=== PATIENT | male | born 1975 | race Caucasian/White ===

== ENCOUNTER 2017-10-19 12:14 | Emergency (ER) | payer OTHER ==
[~2017-10-19] VITALS: Ht 182.9 cm; Wt 122.5 kg
[~2017-10-19 12:14] MED LIST: ALLP300T PO; CYCL-97 PO; MELO-195; MELO-195 PO; TRAM-21 PO
[2017-10-19] MEDS ORDERED: KETOROLAC 30 MG/ML VIAL IM ONE (12:45)
[2017-10-19] MEDS ORDERED: SUMAtriptan 6 MG/0.5 ML (IMITREX) INJ SQ ONE (12:45)
[2017-10-19] MEDS ORDERED: diphenhydrAMINE 25 MG TAB (BENADRYL) PO ONE (12:45)
[2017-10-19] MEDS ORDERED: PROCHLORPERAZINE 10 MG/2ML INJ (COMPAZINE) IM ONE (12:45)
[2017-10-19] MEDS ORDERED: ACETAMINOPHEN 500 MG TAB (TYLENOL) PO ONE (12:45)
[2017-10-19] MEDS ORDERED: ONDANSETRON 4 MG (ZOFRAN) ORAL DISSOLVE TAB PO ONE (12:45)
[2017-10-19 12:55] LABS: BASOPHILS # (AUTO) 0.1 10^3/uL (0.0-0.1); BASOPHILS % (AUTO) 1 % (0-10); EOSINOPHILS # (AUTO) 0.2 10^3/uL (0.0-0.3); EOSINOPHILS % (AUTO) 2 % (0-10); HEMATOCRIT 40 % (40-54); LYMPHOCYTES # (AUTO) 1.6 X 10^3 (1.0-4.0); LYMPHOCYTES % (AUTO) 19 % (12-44); MEAN CORPUSCULAR HEMOGLOBIN 29 PG (25-34); MEAN CORPUSCULAR HGB CONC 35 G/DL (32-36); MEAN CORPUSCULAR VOLUME 82 FL (80-99); MEAN PLATELET VOLUME 9.3 FL (7.4-10.4); MONOCYTES # (AUTO) 0.9 X 10^3 (0.0-1.0); MONOCYTES % (AUTO) 11 % (0-12); NEUTROPHILS # (AUTO) 5.5 X 10^3 (1.8-7.8); NEUTROPHILS % (AUTO) 68 % (42-75); PLATELET COUNT 277 10^3/uL (130-400); RED BLOOD COUNT 4.84 10^6/uL (4.35-5.85); RED CELL DISTRIBUTION WIDTH 12.4 % (10.0-14.5); WHITE BLOOD COUNT 8.2 10^3/uL (4.3-11.0)
[2017-10-19] MEDS ORDERED: ONDANSETRON 4 MG/2 ML (SDV) Z0FRAN IVP ONE (13:00)
[2017-10-19] MEDS ORDERED: NS IV 1000 ML 1,000 ML IV SCH (13:00)
[2017-10-19 13:11] LABS: ALBUMIN 3.9 GM/DL (3.2-4.5); BILIRUBIN,TOTAL 0.7 MG/DL (0.1-1.0); CALCIUM 9.8 MG/DL (8.5-10.1); CREATININE SERUM 1.37 MG/DL (0.60-1.30); POTASSIUM 4.2 MMOL/L (3.6-5.0); TOTAL PROTEIN 8.5 GM/DL (6.4-8.2)
--- NOTE | 2017-10-19 13:22 | ED Abdominal Pain ---
General Chief Complaint: Abdominal/GI Problems Stated Complaint: ABD PAIN Nursing Triage Note: PT AMBULATED TO RM 8 W/O DIFFICULTY. PT C/O ABDOMINAL PAIN THAT STARTED ABOUT A MONTH AGO WHEN THE PT STARTED EATING A KETO DIET. PT THOUGHT IT WAS THE DIET AND STOPPED EATING KETO BUT THE PAIN HAS PERSISTED. PT STATES THE PAIN FEELS LIKE GAS AND BLOATING AND BECAME MORE INTENSE YESTERDAY AND TODAY. PT STATES HE IS HAS BEEN TAKING GAS X WITH NO RELIEF. PT STATES HE IS HAVING REGULAR BM. DENIES DIARRHEA OR CONSTIPATION. Sepsis Screen: No Definite Risk Source of Information: Patient Exam Limitations: No Limitations History of Present Illness Date Seen by Provider: Oct 19, 2017 Time Seen by Provider: 12:20 Initial Comments Patient is a 42-year-old male who presents to the emergency room with generalized abdominal pain for one month. He reports changing his diet to KETO diet and thinks the symptoms are related to the diet but has stopped the diet for over 2 weeks now and the symptoms still persisted. He reports the pain has became worse the last 2 days and he has also developed nausea. He reports his pain is sometimes worse with eating and he feels like the pain sensation is like gas pain/bloating but has tried [id number]-[id number] medications for this without relief. Timing/Duration: Other (1 month) Severity/Quality: Mild Location: Epigastric, Generalized Abdomen Radiation: No Radiation Activities at Onset: None Modifying Factors: Worsens With Eating Associated Symptoms: No Chest Pain, No Diaphoresis, No Fever/Chills, No Fatigue , No Headache; Nausea/Vomiting Allergies and Home Medications Allergies Uncoded Allergies: NKDA (Allergy, Mild, 09/03/08) Home Medications Allopurinol 300 Mg Tab, 300 MG PO DAILY, (Reported) Patient Home Medication List Home Medication List Reviewed: Yes Review of Systems Constitutional: see HPI; No chills, No diaphoresis EENTM: See HPI; No Blurred Vision, No Double Vision, No Eye Pain Respiratory: See HPI; Denies Cough, Denies Orthopnea Cardiovascular: See HPI; Denies Chest Pain, Denies Edema Gastrointestinal: See HPI; Denies Abdomen Distended; Abdominal Pain; Denies Constipated, Denies Diarrhea; Nausea; Denies Vomiting Genitourinary: See HPI; Denies Burning, Denies Discharge, Denies Drainage Musculoskeletal: see HPI; No back pain, No gout, No joint pain Skin: see HPI; No change in color, No change in hair/nails, No dryness Psychiatric/Neurological: See HPI; Denies Anxiety, Denies Depressed, Denies Emotional Problems Endocrine: See HPI; Denies Excessive Sweating, Denies Flushing, Denies Intolerance to Cold Hematologic/Lymphatic: See HPI; Denies Anemia, Denies Blood Clots All Other Systems Reviewed Negative Unless Noted: Yes Past Dqvndgg-Oehwyf-Llwgpg Hx Past Med/Social Hx: Reviewed Nursing Past Med/Soc Hx Patient Social History Alcohol Use: Denies Use Recreational Drug Use: No 2nd Hand Smoke Exposure: No Recent Foreign Travel: No Contact w/Someone Who Travel: No Recent Infectious Disease Expo: No Recent Hopitalizations: No Physical Abuse: No Sexual Abuse: No Immunizations Up To Date Date of Influenza Vaccine: Jan 10, 2011 Seasonal Allergies Seasonal Allergies: No Past Medical History Surgeries: No Respiratory: No Cardiac: No Neurological: No Reproductive Disorders: No Sexually Transmitted Disease: No Genitourinary: No Gastrointestinal: No Musculoskeletal: Yes (GOUT) Endocrine: No Cancer: No Psychosocial: No Nursing Suicide Risk Score: 0 Integumentary: No Blood Disorders: No Family Medical History Reviewed Nursing Family Hx Physical Exam Vital Signs Vital Signs - First Documented 10/19/17 12:22 Temp 98.2 Pulse 96 Resp 15 B/P (MAP) 164/94 (117) O2 Delivery Room Air Capillary Refill : Less Than 3 Seconds Height/Weight/BMI Height: 6', 0" Weight: 270lbs oz, 122.895086em Method:Stated ,BMI General Appearance: WD/WN, no apparent distress HEENT: PERRL/EOMI, normal ENT inspection, TMs normal, pharynx normal Neck: non-tender, full range of motion, supple, normal inspection Respiratory: chest non-tender, lungs clear, normal breath sounds, no respiratory distress, no accessory muscle use Cardiovascular: normal peripheral pulses, regular rate, rhythm, no edema, no gallop, no JVD, no murmur Gastrointestinal: normal bowel sounds, non tender, soft, no organomegaly, no pulsatile mass, other (The patients exam was unimpressive. He was nontender with deep palpation.) Extremities: normal range of motion, non-tender, normal inspection, no pedal edema, no calf tenderness, normal capillary refill Back: normal inspection, no CVA tenderness, no vertebral tenderness Neurologic/Psychiatric: alert, normal mood/affect, oriented x 3 Skin: normal color, warm/dry Lymphatic: no adenopathy Progress/Results/Core Measures Results/Orders Lab Results Laboratory Tests Test 10/19/17 12:41 10/19/17 13:24 Range/Units White Blood Count 8.2 4.3-11.0 10^3/uL Red Blood Count 4.84 4.35-5.85 10^6/uL Hemoglobin 14.0 13.3-17.7 G/DL Hematocrit 40 40-54 % Mean Corpuscular Volume 82 80-99 FL Mean Corpuscular Hemoglobin 29 25-34 PG Mean Corpuscular Hemoglobin Concent 35 32-36 G/DL Red Cell Distribution Width 12.4 10.0-14.5 % Platelet Count 277 130-400 10^3/uL Mean Platelet Volume 9.3 7.4-10.4 FL Neutrophils (%) (Auto) 68 42-75 % Lymphocytes (%) (Auto) 19 12-44 % Monocytes (%) (Auto) 11 0-12 % Eosinophils (%) (Auto) 2 0-10 % Basophils (%) (Auto) 1 0-10 % Neutrophils # (Auto) 5.5 1.8-7.8 X 10^3 Lymphocytes # (Auto) 1.6 1.0-4.0 X 10^3 Monocytes # (Auto) 0.9 0.0-1.0 X 10^3 Eosinophils # (Auto) 0.2 0.0-0.3 10^3/uL Basophils # (Auto) 0.1 0.0-0.1 10^3/uL Sodium Level 137 135-145 MMOL/L Potassium Level 4.2 3.6-5.0 MMOL/L Chloride Level 104 98-107 MMOL/L Carbon Dioxide Level 22 21-32 MMOL/L Anion Gap 11 5-14 MMOL/L Blood Urea Nitrogen 18 7-18 MG/DL Creatinine 1.37 H 0.60-1.30 MG/DL Estimat Glomerular Filtration Rate 57 BUN/Creatinine Ratio 13 Glucose Level 111 H 70-105 MG/DL Calcium Level 9.8 8.5-10.1 MG/DL Total Bilirubin 0.7 0.1-1.0 MG/DL Aspartate Amino Transf (AST/SGOT) 21 5-34 U/L Alanine Aminotransferase (ALT/SGPT) 23 0-55 U/L Alkaline Phosphatase 86 40-136 U/L Total Protein 8.5 H 6.4-8.2 GM/DL Albumin 3.9 3.2-4.5 GM/DL Amylase Level 31 25-125 U/L Lipase 15 8-78 U/L Urine Color YELLOW Urine Clarity CLEAR Urine pH 5 5-9 Urine Specific Bradford 1.025 H 1.016-1.022 Urine Protein NEGATIVE NEGATIVE Urine Glucose (UA) NEGATIVE NEGATIVE Urine Ketones NEGATIVE NEGATIVE Urine Nitrite NEGATIVE NEGATIVE Urine Bilirubin NEGATIVE NEGATIVE Urine Urobilinogen NORMAL NORMAL MG/DL Urine Leukocyte Esterase NEGATIVE NEGATIVE Urine RBC (Auto) 1+ H NEGATIVE Urine RBC RARE /HPF Urine WBC RARE /HPF Urine Squamous Epithelial Cells RARE /HPF Urine Crystals NONE /LPF Urine Bacteria NEGATIVE /HPF Urine Casts NONE /LPF Urine Mucus SMALL H /LPF Urine Culture Indicated NO My Orders Orders - GURJIT SANTO Comprehensive Metabolic Panel (10/19/17 12:46) Lipase (10/19/17 12:46) Amylase (10/19/17 12:46) Ua Culture If Indicated (10/19/17 12:46) Saline Lock/Iv-Start (10/19/17 12:46) Cbc With Automated Diff (10/19/17 12:46) Ondansetron Injection (Zofran Injectio (10/19/17 13:00) Ns Iv 1000 Ml (Sodium Chloride 0.9%) (10/19/17 13:00) Us Gallbladder [id number] (10/19/17 13:24) Fentanyl Injection (Sublimaze Injection (10/19/17 14:45) Medications Given in ED Current Medications Medications Dose Ordered Sig/Mary Route Start Time Stop Time Status Last Admin Dose Admin Fentanyl Citrate 50 mcg ONCE ONCE IVP 10/19/17 14:45 10/19/17 14:46 DC 10/19/17 14:40 50 MCG Ondansetron HCl 4 mg ONCE ONCE IVP 10/19/17 13:00 10/19/17 13:01 DC 10/19/17 12:57 4 MG Vital Signs/I&O 10/19/17 12:22 Temp 98.2 Pulse 96 Resp 15 B/P (MAP) 164/94 (117) O2 Delivery Room Air Blood Pressure Mean: 117 Progress Progress Note : Time: 14:30 Progress Note Patient started developing sharp abdominal pain and requested pain medication. 50 g of fentanyl was ordered. 1435: Phone call was placed to Dr. De La Cruz at this time. He reported that he was in the middle of the scope but would be calling me back shortly. 1450: Dr. De La Cruz called back and he said he would be down to see the patient shortly. 1515: Dr De La Cruz here to see pt. 1520: Dr. De La Cruz has seen and evaluated the patient and he has called the office to schedule appointment for surgery on Wednesday10/22/17. The patient was sent home with a prescription for hydrocodone 08/12/24 and Zofran 4 mg to take as needed for pain and nausea and vomiting. Diagnostic Imaging Diagonstic Imaging: Ultrasound Plain Films/CT/US/NM/MRI: abdomen Comments NAME: SAQIB STOLL MED REC#: [id number] PT STATUS: REG ER : 1975 PHYSICIAN: GURJIT SANTO ADMIT DATE: 10/19/17/ER Signed Date of Exam: 10/19/17 US GALLBLADDER [id number] PROCEDURE: US Gallbladder. TECHNIQUE: Multiple real-time grayscale images were obtained over the right upper quadrant in various projections. INDICATION: Abdominal pain. FINDINGS: No focal hepatic abnormality is identified. There does appear to be debris or sludge within the lumen of the gallbladder without evidence of gallbladder wall thickening or pericholecystic fluid. There is no evidence of biliary ductal dilatation with portions of the extrahepatic ductal system obscured. Pancreas is largely obscured by overlying bowel. No right renal, abdominal aortic, or inferior venocaval abnormality is documented. There is no evidence of free fluid. IMPRESSION: Stones, sludge, or debris within the lumen of the gallbladder without other secondary sign of acute cholecystitis or biliary obstruction. Dictated by: Dictated on workstation # [id number] Dict: 10/19/17 1410 Trans: 10/19/17 142 Interpreted by: KODAK RICCI MD Electronically signed by: KODAK RICCI MD 10/19/17 1429 Reviewed: Reviewed by Me Departure Impression Primary Impression: Gallstones Disposition: HOME, SELF-CARE Condition: Stable/Unchanged Departure-Patient Inst. Decision time for Depature: 15:29 Referrals: ANGI DE LA CRUZ DANIEL J MD (PCP/Family) Primary Care Physician Patient Instructions: Gallstones (DC), Nausea and Vomiting, Adult (DC) Add. Discharge Instructions: Follow-up with Dr. De La rCuz outpatient for removal of gallbladder. As discussed the surgery is scheduled for Wednesday10/22/17. Take medications as directed. Return back to the emergency room as needed for increased pain, vomiting, or any other concerns as needed. All discharge instructions reviewed with patient and/or family. Voiced understanding. GURJIT SANTO Oct 19, 2017 13:22
[2017-10-19 13:42] LABS: BILIRUBIN,URINE NEGATIVE (NEGATIVE); GLUCOSE, URINE (UA) NEGATIVE (NEGATIVE); KETONES,URINE NEGATIVE (NEGATIVE); LEUKOCYTE ESTERASE ,URINE NEGATIVE (NEGATIVE); NITRITE,URINE NEGATIVE (NEGATIVE); PH,URINE 5 (5-9); PROTEIN,URINE NEGATIVE (NEGATIVE); UROBILINOGEN,URINE NORMAL (NORMAL)
--- OUTSIDE RECORDS SUMMARY | 2017-10-19 13:42 | XMS REPORT ---
Author Author KEE LA [facility] Address [address] [place] [address] Care Team Providers Care Thermal Cutter Helper Name Role Phone KEE LA Unavailable PROBLEMS Type Condition ICD9-CM Code [id number] Code Onset Dates Condition Status SNOMED Code Problem Major depression, melancholic type F32.9 Active 379766068 Problem Major depressive disorder with single episode, in partial remission F32.4 Active 42789851 Problem Mild episode of recurrent major depressive disorder F33.0 Active 151257943 Assessment Major depressive disorder with single episode, in partial remission F32.4 Mar, Active 72052905 ALLERGIES Unknown Allergies SOCIAL HISTORY No smoking Hx information available PLAN OF CARE VITAL SIGNS MEDICATIONS Unknown Medications RESULTS No Results PROCEDURES Procedure Date Ordered Related Diagnosis Body Site Psychotherapy, patient &/family, 30 minutes, established patient Mar 20, 2016 IMMUNIZATIONS No Known Immunizations
--- OUTSIDE RECORDS SUMMARY | 2017-10-19 13:42 | XMS REPORT ---
Author Author KEE LA Organization [employer] Address Unknown Phone Unavailable Care Team Providers Care Field Rep Name Role Phone KEE LA CP Unavailable Allergies No Known Allergies Problems Problem Type Condition Code Onset Dates Condition Status Problem Reactive depression (situational) F32.9 Active Assessment Other depression F32.89 Active Problem Reactive depression F32.9 Active Medications No Known Medications Procedures Procedure Coding System Code Date Psychotherapy, patient &/family, 30 minutes, established patient CPT-4 92311 Feb 04, 2016 Results No Known Results Summary Purpose [employer] Submission
[2017-10-19 13:43] LABS: BACTERIA,URINE NEGATIVE /HPF; CLARITY,URINE CLEAR; COLOR,URINE YELLOW; RBC,URINE RARE /HPF; SQUAMOUS EPITHELIAL CELL,UR RARE /HPF; WBC,URINE RARE /HPF
--- OUTSIDE RECORDS SUMMARY | 2017-10-19 13:43 | XMS REPORT ---
Author Author KEAYNA JOSEPH Organization [facility] Address [address] [place] [address] Care Team Providers Care Community Services Manager Name Role Phone KEYANA JOSEPH Unavailable PROBLEMS Type Condition ICD9-CM Code RWC28-OF Code Onset Dates Condition Status SNOMED Code Problem Acute bilateral low back pain with right-sided sciatica M54.41 Active 825679651 Problem Chronic gout without tophus, unspecified cause, unspecified site M1A.9XX0 Active 79795657 Problem Mild episode of recurrent major depressive disorder F33.0 Active 949622836 Problem Major depression, melancholic type F32.9 Active 728505987 Problem Major depressive disorder with single episode, in partial remission F32.4 Active 76604651 ALLERGIES No Known Allergies ENCOUNTERS Encounter Location Date Diagnosis [facility] [address] [address] Mar, Chronic gout without tophus, unspecified cause, unspecified site M1A.9XX0 [facility] [id number] [place] [address] Jan, [facility] [id number] [place] [phone] Dec, [facility] [id number] [place] [phone] Dec, Acute bilateral low back pain with right-sided sciatica M54.41 [facility] [address] [address] Oct, Mild episode of recurrent major depressive disorder F33.0 [facility] [id number] [place] [address] Jul, [facility] [address] [place] [address] Jun, Chronic gout without tophus, unspecified cause, unspecified site M1A.9XX0 [facility] [address] [place] [address] May, [facility] [address] [place] [address] May, [facility] [address] [place] [address] May, Mild episode of recurrent major depressive disorder F33.0 [facility] [address] [place] [address] May, Mild episode of recurrent major depressive disorder F33.0 [facility] [address] [place] [address] May, Mild episode of recurrent major depressive disorder F33.0 and Major depressive disorder with single episode, in partial remission F32.4 [facility] [address] [place] [address] Apr, Chronic gout without tophus, unspecified cause, unspecified site M1A.9XX0 [facility] [address] [place] [address] Apr, Chronic gout without tophus, unspecified cause, unspecified site M1A.9XX0 [place] [address] [place] [address] Apr, [facility] [address] [place] [address] Apr, Flu-like symptoms R68.89 and Acute non-recurrent maxillary sinusitis J01.00 [facility] [address], [place] [address] Mar, Major depressive disorder with single episode, in partial remission F32.4 [facility] [address] [place] [address] Feb, 2016 Major depressive disorder with single episode, in partial remission F32.4 [place] [address] [place] [address] Feb, Mild episode of recurrent major depressive disorder F33.0 and Major depressive disorder with single episode, in partial remission F32.4 [place] [address] [place] [address] 14 Feb, 2016 Mild episode of recurrent major depressive disorder F33.0 [place] [address] [place] [address] 08 Feb, 2016 Mild episode of recurrent major depressive disorder F33.0 [place] [address] [place] [address] Jan, Mild episode of recurrent major depressive disorder F33.0 [place] [address] [place] [address] Jan, Other depression F32.89 [place] [address] [place] [address] Jan, Reactive depression F32.9 [place] [address] [place] [address] Jan, Reactive depression (situational) F32.9 IMMUNIZATIONS No Known Immunizations SOCIAL HISTORY Never Assessed REASON FOR VISIT hurt lower back Wednesday while vacuming out car but started the weekend before [facility] PLAN OF CARE VITAL SIGNS Height 72.0 in 2016-12-30 Weight 276.6 lbs 2016-12-30 Temperature 98.2 degrees Fahrenheit 2016-12-30 Heart Rate 80 bpm 2016-12-30 Respiratory Rate 22 2016-12-30 BMI 37.51 kg/m2 2016-12-30 Blood pressure systolic 124 mmHg 2016-12-30 Blood pressure diastolic 84 mmHg 2016-12-30 MEDICATIONS Medication Instructions Dosage Frequency Start Date End Date Duration Status Naproxen 500 mg Orally 2 times a day 1 tablet 12h 20 Dec, 2016 Active Zanaflex 4 MG Orally Three times a day 1 tablet as needed 8h 20 Dec, 2017 Active PredniSONE 20 mg Orally Once a day 2 tablets 24h Dec, Dec, 05 days Active Colcrys 0.6 MG Orally Once a day 1 tablet 24h 30 days Active Heating Pad - Active Naproxen 250 MG Orally Twice a day 1 tablet 12h Active Fluoxetine HCl 20 MG Orally Once a day 1 capsule in the morning 24h May 30 day(s) Active Uloric 80 MG Orally Once a day 1 tablet 24h 30 days Active RESULTS No Results PROCEDURES No Known procedures INSTRUCTIONS MEDICATIONS ADMINISTERED No Known Medications MEDICAL (GENERAL) HISTORY Type Description Date Medical History Gout Medical History Arthritis Medical History Borderline Diabetic Surgical History Bone graft left wrist 1992 Surgical History [place] teeth removal Surgical History left knee arthroscopy 2008 Surgical History right knee arthroscopy 2011 Hospitalization History Surgery Hospitalization History Pneumonia -- [facility] 1993
--- OUTSIDE RECORDS SUMMARY | 2017-10-19 13:43 | XMS REPORT ---
Author Author KEE LA [facility] [employer] Address Unknown Phone Unavailable Care Team Providers Care Lead Sql Developer Name Role Phone KEE LA CP Unavailable Allergies No Known Allergies Problems Problem Type Condition Code Onset Dates Condition Status Problem Reactive depression F32.9 Active Problem Reactive depression (situational) F32.9 Active Problem Mild episode of recurrent major depressive disorder F33.0 Active Assessment Mild episode of recurrent major depressive disorder F33.0 Active Medications No Known Medications Procedures Procedure Coding System Code Date Psychotherapy, patient &/family, 30 minutes, established patient CPT-4 72049 Feb 10, 2016 Results No Known Results Summary Purpose [employer] Submission
--- OUTSIDE RECORDS SUMMARY | 2017-10-19 13:43 | XMS REPORT ---
Author Author JERE SANCHEZ Organization [facility] Address [address] [place] [address] Care Team Providers Care Strapper Operator Name Role Phone JERE SANCHEZ Unavailable PROBLEMS Type Condition ICD9-CM Code UFB47-BK Code Onset Dates Condition Status SNOMED Code Problem Chronic gout without tophus, unspecified cause, unspecified site M1A.9XX0 Active 12697001 Problem Major depression, melancholic type F32.9 Active 982877286 Problem Major depressive disorder with single episode, in partial remission F32.4 Active 17202705 Problem Mild episode of recurrent major depressive disorder F33.0 Active 227250724 ALLERGIES Substance Reaction Event Type Date Status N.K.D.A. Unknown Non Drug Allergy Apr, Unknown SOCIAL HISTORY No smoking Hx information available PLAN OF CARE Activity Details Follow Up prn Reason: VITAL SIGNS Height 72.0 in 2016-04-22 Weight 266.0 lbs 2016-04-22 Temperature 99.0 degrees Fahrenheit 2016-04-22 Heart Rate 128 bpm 2016-04-22 Respiratory Rate 24 2016-04-22 Oximetry 98 % 2016-04-22 BMI 36.07 kg/m2 2016-04-22 Blood pressure systolic 138 mmHg 2016-04-22 Blood pressure diastolic 93 mmHg 2016-04-22 MEDICATIONS Medication Instructions Dosage Frequency Start Date End Date Duration Status Colcrys 0.6 MG Orally Once a day 1 tablet 24h Active Uloric 80 MG Orally Once a day 1 tablet 24h Active Zithromax Z-Marcos 250 MG Orally Once a day 2 tablets on the first day, then 1 tablet daily for 4 days 24h Apr, Apr, 5 day(s) Active RESULTS Name Result Date Reference Range INFLUENZA A & B (IN HOUSE) 2016-04-22 INFLUENZA A Negative INFLUENZA B Negative Control + Lot # [id number] Exp date PROCEDURES Procedure Date Ordered Related Diagnosis Body Site MEASURE BLOOD OXYGEN LEVEL Apr 22, 2016 INFLUENZA ASSAY W/OPTIC Apr 22, 2016 Office Visit, Est Pt., Level 3 Apr 22, 2016 IMMUNIZATIONS No Known Immunizations
--- OUTSIDE RECORDS SUMMARY | 2017-10-19 13:43 | XMS REPORT ---
Author Author KEYANA JOSEPH Organization [facility] Address [address] [place] [address] Care Team Providers Care Machine Pan Greaser Name Role Phone KEYANA JOSEPH Unavailable PROBLEMS Type Condition ICD9-CM Code GLO45-GH Code Onset Dates Condition Status SNOMED Code Problem Acute bilateral low back pain with right-sided sciatica M54.41 Active 686742737 Problem Chronic gout without tophus, unspecified cause, unspecified site M1A.9XX0 Active 00627959 Problem Mild episode of recurrent major depressive disorder F33.0 Active 847221539 Problem Major depression, melancholic type F32.9 Active 743006795 Problem Major depressive disorder with single episode, in partial remission F32.4 Active 18511567 ALLERGIES No Information SOCIAL HISTORY Never Assessed PLAN OF CARE VITAL SIGNS MEDICATIONS Medication Instructions Dosage Frequency Start Date End Date Duration Status Uloric 80 MG Orally Once a day 1 tablet 24h 30 days Active Colcrys 0.6 MG Orally Once a day 1 tablet 24h 30 days Active RESULTS No Results PROCEDURES No Known procedures IMMUNIZATIONS No Known Immunizations MEDICAL (GENERAL) HISTORY Type Description Date Medical History Gout Medical History Arthritis Medical History Borderline Diabetic Surgical History Bone graft left wrist 1992 Surgical History [place] teeth removal Surgical History left knee arthroscopy 2008 Surgical History right knee arthroscopy 2011 Hospitalization History Surgery Hospitalization History Pneumonia -- [facility] 1993
--- OUTSIDE RECORDS SUMMARY | 2017-10-19 13:43 | XMS REPORT ---
Author Author KEE LA [facility] [employer] Address Unknown Phone Unavailable Care Team Providers Care Medical Imaging Director Name Role Phone KEE LA CP Unavailable Allergies No Known Allergies Problems Problem Type Condition Code Onset Dates Condition Status Assessment Reactive depression (situational) F32.9 Active Problem Reactive depression (situational) F32.9 Active Medications No Known Medications Procedures Procedure Coding System Code Date Psych diagnostic evaluation, new patient CPT-4 23230 Jan 23, 2016 Results No Known Results Summary Purpose [employer] Submission
--- OUTSIDE RECORDS SUMMARY | 2017-10-19 13:43 | XMS REPORT ---
Author Author KEE LA [facility] Address [address] [place] [address] Care Team Providers Care Solution Mixer Name Role Phone KEE LA Unavailable PROBLEMS Type Condition ICD9-CM Code EUZ47-OP Code Onset Dates Condition Status SNOMED Code Problem Chronic gout without tophus, unspecified cause, unspecified site M1A.9XX0 Active 62989251 Problem Major depression, melancholic type F32.9 Active 143751135 Problem Major depressive disorder with single episode, in partial remission F32.4 Active 66390397 Problem Mild episode of recurrent major depressive disorder F33.0 Active 470642901 ALLERGIES Unknown Allergies SOCIAL HISTORY No smoking Hx information available PLAN OF CARE Activity Details Follow Up prn Reason:Depresion VITAL SIGNS MEDICATIONS Unknown Medications RESULTS No Results PROCEDURES Procedure Date Ordered Related Diagnosis Body Site Psychotherapy, patient &/family, 30 minutes, established patient 2016 IMMUNIZATIONS No Known Immunizations
--- OUTSIDE RECORDS SUMMARY | 2017-10-19 13:43 | XMS REPORT ---
Author Author KEYANA JOSEPH Organization [facility] Address [address] [place] [address] Care Team Providers Care Diamond Broker Name Role Phone KEYANA JOSEPH Unavailable PROBLEMS Type Condition ICD9-CM Code MDQ87-CY Code Onset Dates Condition Status SNOMED Code Problem Acute bilateral low back pain with right-sided sciatica M54.41 Active 812591135 Problem Chronic gout without tophus, unspecified cause, unspecified site M1A.9XX0 Active 58965278 Problem Mild episode of recurrent major depressive disorder F33.0 Active 117171065 Problem Major depression, melancholic type F32.9 Active 449569497 Problem Major depressive disorder with single episode, in partial remission F32.4 Active 68861928 ALLERGIES No Information SOCIAL HISTORY Never Assessed PLAN OF CARE VITAL SIGNS MEDICATIONS Medication Instructions Dosage Frequency Start Date End Date Duration Status Fluoxetine HCl 20 mg Orally Once a day 1 capsule in the morning 24h May 30 day(s) Active RESULTS No Results PROCEDURES No Known procedures IMMUNIZATIONS No Known Immunizations MEDICAL (GENERAL) HISTORY Type Description Date Medical History Gout Medical History Arthritis Medical History Borderline Diabetic Surgical History Bone graft left wrist 1992 Surgical History [place] teeth removal Surgical History left knee arthroscopy 2008 Surgical History right knee arthroscopy 2011 Hospitalization History Surgery Hospitalization History Pneumonia -- [facility] 1993
--- OUTSIDE RECORDS SUMMARY | 2017-10-19 13:43 | XMS REPORT ---
Author Author KEYANA JOSEPH Organization [facility] Address [address] [place] [address] Care Team Providers Care Licensed Surveyor Name Role Phone KEYANA JOSEPH Unavailable PROBLEMS Type Condition ICD9-CM Code NSF48-ZH Code Onset Dates Condition Status SNOMED Code Problem Acute bilateral low back pain with right-sided sciatica M54.41 Active 842667232 Problem Chronic gout without tophus, unspecified cause, unspecified site M1A.9XX0 Active 78329035 Problem Mild episode of recurrent major depressive disorder F33.0 Active 341573401 Problem Major depression, melancholic type F32.9 Active 713782216 Problem Major depressive disorder with single episode, in partial remission F32.4 Active 76757067 ALLERGIES No Information ENCOUNTERS Encounter Location Date Diagnosis [facility] [address] [address] Mar, Chronic gout without tophus, unspecified cause, unspecified site M1A.9XX0 [facility] [id number] [place] [address] Jan, [facility] [id number] [place] [phone] Dec, [facility] [id number] [place] [address] Dec, Acute bilateral low back pain with right-sided sciatica M54.41 [facility] [address] [address] Oct, Mild episode of recurrent major depressive disorder F33.0 [facility] [id number] [place] [address] Jul, [facility] [address] [address] Jun, Chronic gout without tophus, unspecified cause, unspecified site M1A.9XX0 [facility] [address] [address] May, [facility] [address] [address] May, [facility] [address] [address] May, Mild episode of recurrent major depressive disorder F33.0 [facility] [address] [address] May, Mild episode of recurrent major depressive disorder F33.0 [facility] [address] [address] May, Mild episode of recurrent major depressive disorder F33.0 and Major depressive disorder with single episode, in partial remission F32.4 [facility] [address] [address] Apr, Chronic gout without tophus, unspecified cause, unspecified site M1A.9XX0 [facility] [id number] [address] Apr, Chronic gout without tophus, unspecified cause, unspecified site M1A.9XX0 [place] [address] [address] Apr, [facility] [address] [address] Apr, Flu-like symptoms R68.89 and Acute non-recurrent maxillary sinusitis J01.00 [facility] [id number] [address] Mar, Major depressive disorder with single episode, in partial remission F32.4 [facility] [address] [address] 30 Feb, 2016 Major depressive disorder with single episode, in partial remission F32.4 [place] [id number] [id number] Feb, Mild episode of recurrent major depressive disorder F33.0 and Major depressive disorder with single episode, in partial remission F32.4 [place] [address] [address] 14 Feb, 2016 Mild episode of recurrent major depressive disorder F33.0 [place] [address] [place] [address] 08 Feb, 2016 Mild episode of recurrent major depressive disorder F33.0 [place] [address] [place] [address] 31 Jan, 2016 Mild episode of recurrent major depressive disorder F33.0 [place] [address] [place] [address] Jan, Other depression F32.89 [place] [address] [place] [address] Jan, Reactive depression F32.9 [place] [address] [place] [address] Jan, Reactive depression (situational) F32.9 IMMUNIZATIONS No Known Immunizations SOCIAL HISTORY Never Assessed REASON FOR VISIT med refill-proza PLAN OF CARE VITAL SIGNS MEDICATIONS Medication Instructions Dosage Frequency Start Date End Date Duration Status Fluoxetine HCl 20 MG Orally Once a day 1 capsule in the morning 24h May 30 day(s) Active RESULTS No Results PROCEDURES No Known procedures INSTRUCTIONS MEDICATIONS ADMINISTERED No Known Medications MEDICAL (GENERAL) HISTORY Type Description Date Medical History Gout Medical History Arthritis Medical History Borderline Diabetic Surgical History Bone graft left wrist 1992 Surgical History [place] teeth removal Surgical History left knee arthroscopy 2008 Surgical History right knee arthroscopy 2011 Hospitalization History Surgery Hospitalization History Pneumonia -- [facility] 1993
--- OUTSIDE RECORDS SUMMARY | 2017-10-19 13:43 | XMS REPORT ---
Author Author KEE LA [facility] Address Unknown Phone Unavailable Care Team Providers Care Knuckler Name Role Phone KEE LA CP Unavailable Allergies No Known Allergies Problems Problem Type Condition Code Onset Dates Condition Status Problem Mild episode of recurrent major depressive disorder F33.0 Active Assessment Mild episode of recurrent major depressive disorder F33.0 Active Problem Major depressive disorder with single episode, in partial remission F32.4 Active Assessment Major depressive disorder with single episode, in partial remission F32.4 Active Medications No Known Medications Procedures Procedure Coding System Code Date Psychotherapy, patient &/family, 30 minutes, established patient CPT-4 94404 Mar 02, 2016 Results No Known Results Summary Purpose eClinicalWorks Submission
--- OUTSIDE RECORDS SUMMARY | 2017-10-19 13:43 | XMS REPORT ---
Author Author KEYANA JOSEPH Organization [facility] Address [address] [place] [address] Care Team Providers Care Senior Network Engineer Name Role Phone KEYANA JOSEPH Unavailable PROBLEMS Type Condition ICD9-CM Code CEI24-KL Code Onset Dates Condition Status SNOMED Code Problem Acute bilateral low back pain with right-sided sciatica M54.41 Active 463391975 Problem Chronic gout without tophus, unspecified cause, unspecified site M1A.9XX0 Active 78781486 Problem Mild episode of recurrent major depressive disorder F33.0 Active 761347352 Problem Major depression, melancholic type F32.9 Active 803709767 Problem Major depressive disorder with single episode, in partial remission F32.4 Active 46675963 ALLERGIES No Information SOCIAL HISTORY Never Assessed [...] Bone graft left wrist 1992 Surgical History [place] teeth removal Surgical History left knee arthroscopy 2008 Surgical History right knee arthroscopy 2011 Hospitalization History Surgery Hospitalization History Pneumonia -- [facility] 1993
--- OUTSIDE RECORDS SUMMARY | 2017-10-19 13:43 | XMS REPORT ---
Author Author KEE LA Organization [employer] Address Unknown Phone Unavailable Care Team Providers Care Athletic Scout Name Role Phone KEE LA CP Unavailable Allergies No Known Allergies Problems Problem Type Condition Code Onset Dates Condition Status Problem Reactive depression (situational) F32.9 Active Assessment Reactive depression F32.9 Active Problem Reactive depression F32.9 Active Medications No Known Medications Procedures Procedure Coding System Code Date Psychotherapy, patient &/family, 30 minutes, established patient CPT-4 97375 Jan 27, 2016 Results No Known Results Summary Purpose eClinicalWorks Submission
--- OUTSIDE RECORDS SUMMARY | 2017-10-19 13:43 | XMS REPORT ---
Author Author KEE LA Organization [facility] Address [address] [place] [address] Care Team Providers Care Reactor Fueling Supervisor Name Role Phone KEE LA Unavailable PROBLEMS Type Condition ICD9-CM Code FLX27-YF Code Onset Dates Condition Status SNOMED Code Problem Chronic gout without tophus, unspecified cause, unspecified site M1A.9XX0 Active 90226188 Problem Major depression, melancholic type F32.9 Active 547439104 Problem Major depressive disorder with single episode, in partial remission F32.4 Active 83901092 Problem Mild episode of recurrent major depressive disorder F33.0 Active 363230578 ALLERGIES No Information SOCIAL HISTORY Never Assessed PLAN OF CARE Activity Details Follow Up prn Reason:Anxiety, depression VITAL SIGNS MEDICATIONS Unknown Medications RESULTS No Results PROCEDURES Procedure Date Ordered Result Body Site Psychotherapy, patient &/family, 30 minutes, established patient May 21, 2016 IMMUNIZATIONS No Known Immunizations MEDICAL (GENERAL) HISTORY Type Description Date Medical History Gout Medical History Arthritis Medical History Borderline Diabetic Surgical History Bone graft left wrist 1992 Surgical History [place] teeth removal Surgical History left knee arthroscopy 2008 Surgical History right knee arthroscopy 2011 Hospitalization History Surgery Hospitalization History Pneumonia -- [facility] 1993
--- OUTSIDE RECORDS SUMMARY | 2017-10-19 13:43 | XMS REPORT ---
Author Author KEE LA [facility] eClinical[employer] Address Unknown Phone Unavailable Care Team Providers Care Title Manager Name Role Phone KEE LA CP Unavailable Allergies No Known Allergies Problems Problem Type Condition Code Onset Dates Condition Status Assessment Mild episode of recurrent major depressive disorder F33.0 Active Problem Mild episode of recurrent major depressive disorder F33.0 Active Medications No Known Medications Procedures Procedure Coding System Code Date Psychotherapy, patient &/family, 30 minutes, established patient CPT-4 17836 Feb 24, 2016 Results No Known Results Summary Purpose eClinicalWorks Submission
--- OUTSIDE RECORDS SUMMARY | 2017-10-19 13:43 | XMS REPORT ---
Author Author KEYANA JOSEPH Organization [facility] Address [address] [place] [address] Care Team Providers Care Braided Rug Maker Name Role Phone KEYANA JOSEPH Unavailable PROBLEMS Type Condition ICD9-CM Code EGW70-TE Code Onset Dates Condition Status SNOMED Code Problem Acute bilateral low back pain with right-sided sciatica M54.41 Active 878530846 Problem Chronic gout without tophus, unspecified cause, unspecified site M1A.9XX0 Active 08868490 Problem Mild episode of recurrent major depressive disorder F33.0 Active 849667624 Problem Major depression, melancholic type F32.9 Active 712067802 Problem Major depressive disorder with single episode, in partial remission F32.4 Active 25042025 ALLERGIES No Information ENCOUNTERS Encounter Location Date Diagnosis [facility] [address] [address] Mar, Chronic gout without tophus, unspecified cause, unspecified site M1A.9XX0 [facility] [id number] [place] [address] Jan, [facility] [id number] [place] [address] Dec, [facility] [id number] [place] [address] Dec, Acute bilateral low back pain with right-sided sciatica M54.41 [facility] [address] [address] Oct, Mild episode of recurrent major depressive disorder F33.0 [facility] [id number] [place] [address] Jul, [facility] [address] [address] Jun, Chronic gout without tophus, unspecified cause, unspecified site M1A.9XX0 [facility] [address], [place] [address] May, [facility] [address], [place] [address] May, [facility] [address], [place] [address] May, Mild episode of recurrent major depressive disorder F33.0 [facility] [address], [place] [address] May, Mild episode of recurrent major depressive disorder F33.0 [facility] [address], [place] [address] May, Mild episode of recurrent major depressive disorder F33.0 and Major depressive disorder with single episode, in partial remission F32.4 [facility] [address], [place] [address] Apr, Chronic gout without tophus, unspecified cause, unspecified site M1A.9XX0 [facility] [id number] [place] [address] Apr, Chronic gout without tophus, unspecified cause, unspecified site M1A.9XX0 [place] [address], [place] [address] Apr, [facility] [address], [place] [address] Apr, Flu-like symptoms R68.89 and Acute non-recurrent maxillary sinusitis J01.00 [facility] [id number], [place] [address] Mar, Major depressive disorder with single episode, in partial remission F32.4 [facility] [address], [place] [address] 30 Feb, 2016 Major depressive disorder with single episode, in partial remission F32.4 [facility] [address] [place] [address] Feb, Mild episode of recurrent major depressive disorder F33.0 and Major depressive disorder with single episode, in partial remission F32.4 [facility] [address], [place] [address] 14 Feb, 2016 Mild episode of recurrent major depressive disorder F33.0 [place] [address] [place] [address] 08 Feb, 2016 Mild episode of recurrent major depressive disorder F33.0 [place] [address] [place] [address] 31 Jan, 2016 Mild episode of recurrent major depressive disorder F33.0 [place] [address] [place] [address] Jan, Other depression F32.89 [place] [address] [place] [address] 17 Jan, 2016 Reactive depression F32.9 [place] [address] [place] [address] Jan, Reactive depression (situational) F32.9 IMMUNIZATIONS No Known Immunizations SOCIAL HISTORY Never Assessed REASON FOR VISIT work note PLAN OF CARE VITAL SIGNS MEDICATIONS Unknown Medications RESULTS No Results PROCEDURES No Known procedures INSTRUCTIONS MEDICATIONS ADMINISTERED No Known Medications MEDICAL (GENERAL) HISTORY Type Description Date Medical History Gout Medical History Arthritis Medical History Borderline Diabetic Surgical History Bone graft left wrist 1992 Surgical History [place] teeth removal Surgical History left knee arthroscopy 2008 Surgical History right knee arthroscopy 2011 Hospitalization History Surgery Hospitalization History Pneumonia -- [facility] 1993
--- OUTSIDE RECORDS SUMMARY | 2017-10-19 13:44 | XMS REPORT ---
Author Author KEYANA JOESPH [facility] Address [address] [place] [address] Care Team Providers Care Plate Colorer Name Role Phone KEYANA JOSEPH Unavailable PROBLEMS Type Condition ICD9-CM Code RGD87-RZ Code Onset Dates Condition Status SNOMED Code Problem Chronic gout without tophus, unspecified cause, unspecified site M1A.9XX0 Active 19688490 Problem Major depression, melancholic type F32.9 Active 416547953 Problem Major depressive disorder with single episode, in partial remission F32.4 Active 48868685 Problem Mild episode of recurrent major depressive disorder F33.0 Active 756130848 ALLERGIES Substance Reaction Event Type Date Status N.K.D.A. Unknown Non Drug Allergy Apr, Unknown SOCIAL HISTORY No smoking Hx information available PLAN OF CARE VITAL SIGNS Height 72.0 in 2016-04-30 Weight 273.6 lbs 2016-04-30 Temperature 98.3 degrees Fahrenheit 2016-04-30 Heart Rate 92 bpm 2016-04-30 Respiratory Rate 20 2016-04-30 BMI 37.10 kg/m2 2016-04-30 Blood pressure systolic 138 mmHg 2016-04-30 Blood pressure diastolic 90 mmHg 2016-04-30 MEDICATIONS Medication Instructions Dosage Frequency Start Date End Date Duration Status Uloric 80 MG Orally Once a day 1 tablet 24h Active Colcrys 0.6 MG Orally Once a day 1 tablet 24h Active RESULTS Name Result Date Reference Range A1C NTI Serum Gel Tube Hemoglobin A1c Please note Please Note: Request Problem Hemoglobin A1c LIPID PANEL Courtney Pérez [id number] Default Comment Please note Request Problem Request Problem Specimen Identification Status LDL Cholesterol Calc Comment: VLDL Cholesterol Ozzy HDL Cholesterol Triglycerides Cholesterol, Total Comment: CMP Request Problem NTI Urine Tube ([place]) Courtney Pérez CMP14 Default Request Problem Request Problem Sodium, Serum Potassium, Serum Chloride, Serum Carbon Dioxide, Total BUN Creatinine, Serum eGFR If NonAfricn Am eGFR If Africn Am BUN/Creatinine Ratio Glucose, Serum Calcium, Serum Bilirubin, Total AST (SGOT) ALT (SGPT) Alkaline Phosphatase, S Protein, Total, Serum Albumin, Serum Globulin, Total A/G Ratio Specimen Identification Status Please note CBC ABSOLUTE LYMPHOCYTES ABSOLUTE PLASMA CELLS ABSOLUTE PROLYMPHOCYTES ABSOLUTE REACTIVE LYMPHOCYTES CBC MORPHOLOGY NOTE PLASMA CELLS PLATELET ESTIMATION PROLYMPHOCYTES WHITE BLOOD CELL COUNT RED BLOOD CELL COUNT HEMOGLOBIN HEMATOCRIT MCV MCH MCHC RDW PLATELET COUNT NEUTROPHILS BAND NEUTROPHILS ABSOLUTE BAND NEUTROPHILS METAMYELOCYTES ABSOLUTE METAMYELOCYTES MYELOCYTES ABSOLUTE MYELOCYTES PROMYELOCYTES ABSOLUTE PROMYELOCYTES ABSOLUTE NEUTROPHILS LYMPHOCYTES REACTIVE LYMPHOCYTES ABSOLUTE LYMPHOCYTES MONOCYTES ABSOLUTE MONOCYTES EOSINOPHILS ABSOLUTE EOSINOPHILS BASOPHILS ABSOLUTE BASOPHILS BLASTS ABSOLUTE BLASTS NUCLEATED RBC ABSOLUTE NUCLEATED RBC COMMENT(S) MPV PROCEDURES Procedure Date Ordered Related Diagnosis Body Site Office Visit, Est Pt., Level 3 Apr 30, 2016 IMMUNIZATIONS No Known Immunizations
--- OUTSIDE RECORDS SUMMARY | 2017-10-19 13:44 | XMS REPORT ---
Author Author KEYANA JOSEPH Organization [facility] Address [address] [place] [address] Care Team Providers Care Hydraulic And Plumbing Installer Name Role Phone KEYANA JOSEPH Unavailable PROBLEMS Type Condition ICD9-CM Code KPO33-TP Code Onset Dates Condition Status SNOMED Code Problem Chronic gout without tophus, unspecified cause, unspecified site M1A.9XX0 Active 50223962 Problem Major depression, melancholic type F32.9 Active 925440728 Problem Major depressive disorder with single episode, in partial remission F32.4 Active 99205142 Problem Mild episode of recurrent major depressive disorder F33.0 Active 459323309 ALLERGIES Unknown Allergies SOCIAL HISTORY No smoking Hx information available PLAN OF CARE VITAL SIGNS MEDICATIONS Unknown Medications RESULTS Name Result Date Reference Range A1C 2016-05-01 Hemoglobin A1c 5.7 4.8-5.6 LIPID PANEL 2016-05-01 Cholesterol, Total 176 100-199 Triglycerides 137 0-149 HDL Cholesterol 39 >39 VLDL Cholesterol Ozzy 27 5-40 LDL Cholesterol Calc 110 0-99 CMP 2016-05-01 Glucose, Serum 107 65-99 BUN 12 6-24 Creatinine, Serum 1.46 0.76-1.27 eGFR If NonAfricn Am 59 >59 eGFR If Africn Am 68 >59 BUN/Creatinine Ratio 8 9-20 Sodium, Serum 139 134-144 Potassium, Serum 4.6 3.5-5.2 Chloride, Serum 99 96-106 Carbon Dioxide, Total 26 18-29 Calcium, Serum 9.7 8.7-10.2 Protein, Total, Serum 7.9 6.0-8.5 Albumin, Serum 4.3 3.5-5.5 Globulin, Total 3.6 1.5-4.5 A/G Ratio 1.2 1.1-2.5 Bilirubin, Total 0.5 0.0-1.2 Alkaline Phosphatase, S 99 39-117 AST (SGOT) 24 0-40 ALT (SGPT) 29 0-44 CBC 2016-05-01 WBC 6.0 3.4-10.8 RBC 5.14 4.14-5.80 Hemoglobin 14.9 12.6-17.7 Hematocrit 43.7 37.5-51.0 MCV 85 79-97 MCH 29.0 26.6-33.0 MCHC 34.1 31.5-35.7 RDW 13.6 12.3-15.4 Platelets 260 150-379 Neutrophils 59 Lymphs 28 Monocytes 10 Eos 2 Basos 0 Neutrophils (Absolute) 3.5 1.4-7.0 Lymphs (Absolute) 1.7 0.7-3.1 Monocytes(Absolute) 0.6 0.1-0.9 Eos (Absolute) 0.1 0.0-0.4 Baso (Absolute) 0.0 0.0-0.2 Immature Granulocytes 1 Immature Grans (Abs) 0.0 0.0-0.1 PROCEDURES Procedure Date Ordered Related Diagnosis Body Site GLYCATED HEMOGLOBIN TEST May 01, 2016 COMPREHEN METABOLIC PANEL May 01, 2016 LIPID PANEL May 01, 2016 COMPLETE CBC W/AUTO DIFF WBC May 01, 2016 VENIPUNCT, ROUTINE* May 01, 2016 IMMUNIZATIONS No Known Immunizations
--- OUTSIDE RECORDS SUMMARY | 2017-10-19 13:44 | XMS REPORT ---
Author Author KEYANA JOSEPH [facility] Address [address] [place] [address] Care Team Providers Care Data Warehouse Developer Name Role Phone KEYANA JOSEHP Unavailable PROBLEMS Type Condition ICD9-CM Code WQC83-JA Code Onset Dates Condition Status SNOMED Code Problem Chronic gout without tophus, unspecified cause, unspecified site M1A.9XX0 Active 37849043 Problem Major depression, melancholic type F32.9 Active 826351360 Problem Major depressive disorder with single episode, in partial remission F32.4 Active 14301497 Problem Mild episode of recurrent major depressive disorder F33.0 Active 629241054 ALLERGIES Substance Reaction Event Type Date Status N.K.D.A. Unknown Non Drug Allergy Apr, Unknown SOCIAL HISTORY No smoking Hx information available PLAN OF CARE VITAL SIGNS MEDICATIONS Medication Instructions Dosage Frequency Start Date End Date Duration Status Colcrys 0.6 MG Orally Once a day 1 tablet 24h Active Uloric 80 MG Orally Once a day 1 tablet 24h Active RESULTS No Results PROCEDURES No Known procedures IMMUNIZATIONS No Known Immunizations
--- NOTE | 2017-10-19 14:25 | Diagnostic Imaging Report ---
PROCEDURE: US Gallbladder. TECHNIQUE: Multiple real-time grayscale images were obtained over the right upper quadrant in various projections. INDICATION: Abdominal pain. FINDINGS: No focal hepatic abnormality is identified. There does appear to be debris or sludge within the lumen of the gallbladder without evidence of gallbladder wall thickening or pericholecystic fluid. There is no evidence of biliary ductal dilatation with portions of the extrahepatic ductal system obscured. Pancreas is largely obscured by overlying bowel. No right renal, abdominal aortic, or inferior venocaval abnormality is documented. There is no evidence of free fluid. IMPRESSION: Stones, sludge, or debris within the lumen of the gallbladder without other secondary sign of acute cholecystitis or biliary obstruction. Dictated by: Dictated on workstation # [id number]
[2017-10-19] MEDS ORDERED: fentaNYL INJECTION 100 MCG/2 ML AMP IVP ONE (14:45)
[2017-10-19 15:46] VITALS: BP 119/90
--- NOTE | 2017-10-19 19:43 | Consultation ---
History of Present Illness History of Present Illness Patient Consulted On(theron/time) 10/19/17 19:38 Date Seen by Provider: Oct 19, 2017 Time Seen by Provider: 15:15 History of Present Illness consult requested by Herbert Bertrand for cholelithiasis Patient seen and evaluated in emergency Dept. 42 year old male who has been having epigastric abdominal pain on and off for last month. Last couple days has worsened. Moderated pain in epigastric region. Moves around center of abdomen. Food makes worse usually. Nothing really makes better. Has some associated nausea no emesis. Patient had gallbladder u/s that demonstrates stones and some sludge no evidence of cholecystitis. Denies fever sweats chills shortness of breath or chest pain. Allergies and Home Medications Allergies Uncoded Allergies: NKDA (Allergy, Mild, 09/03/08) Home Medications Allopurinol 300 Mg Tab, 300 MG PO DAILY, (Reported) Patient Home Medication List Home Medication List Reviewed: Yes Past Kteitqb-Dgwtqr-Zzzjkt Hx Patient Social History Alcohol Use: Denies Use Recreational Drug Use: No 2nd Hand Smoke Exposure: No Recent Foreign Travel: No Contact w/Someone Who Travel: No Recent Infectious Disease Expo: No Recent Hopitalizations: No Immunizations Up To Date Date of Influenza Vaccine: Jan 10, 2011 Seasonal Allergies Seasonal Allergies: No Surgeries History of Surgeries: Yes (knee scopes) Respiratory History of Respiratory Disorde: No Cardiovascular History of Cardiac Disorders: No Neurological History of Neurological Disord: No Reproductive System Hx Reproductive Disorders: No Sexually Transmitted Disease: No Genitourinary History of Genitourinary Disor: No Gastrointestinal History of Gastrointestinal Di: No Musculoskeletal History of Musculoskeletal Dis: Yes (GOUT) Endocrine History of Endocrine Disorders: No Cancer History of Cancer: No Psychosocial History of Psychiatric Problem: No Integumentary History of Skin or Integumenta: No Blood Transfusions History of Blood Disorders: No Family Medical History Significant Family History: No Pertinent Family Hx Review of Systems-General Constitutional: no symptoms reported EENTM: no symptoms reported Cardiovascular: no symptoms reported Gastrointestinal: see HPI Genitourinary: no symptoms reported Musculoskeletal: no symptoms reported Skin: no symptoms reported Psychiatric/Neurological: No Symptoms Reported Physical Exam-General Problems Physical Exam Vital Signs Vital Signs - First Documented 10/19/17 10/19/17 12:22 15:46 Temp 98.2 Pulse 96 Resp 15 B/P (MAP) 164/94 (117) Pulse Ox 96 O2 Delivery Room Air Capillary Refill : Less Than 3 Seconds General Appearance: no apparent distress HEENT: PERRL/EOMI, normal ENT inspection Neck: supple, normal inspection Respiratory: normal breath sounds, no respiratory distress, no accessory muscle use Cardiovascular: regular rate, rhythm Gastrointestinal: soft, tenderness (minimal epigastric) Rectal: deferred Back: normal inspection Extremities: non-tender, normal inspection Neurologic/Psychiatric: wirer II-XII nml as tested, no motor/sensory deficits, alert, normal mood/affect, oriented x 3 Skin: normal color, warm/dry Lymphatic: no adenopathy Data Review Labs Laboratory Tests 10/19/17 12:41: White Blood Count 8.2, Red Blood Count 4.84, Hemoglobin 14.0, Hematocrit 40, Mean Corpuscular Volume 82, Mean Corpuscular Hemoglobin 29, Mean Corpuscular Hemoglobin Concent 35, Red Cell Distribution Width 12.4, Platelet Count 277, Mean Platelet Volume 9.3, Neutrophils (%) (Auto) 68, Lymphocytes (%) (Auto) 19, Monocytes (%) (Auto) 11, Eosinophils (%) (Auto) 2, Basophils (%) (Auto) 1, Neutrophils # (Auto) 5.5, Lymphocytes # (Auto) 1.6, Monocytes # (Auto) 0.9, Eosinophils # (Auto) 0.2, Basophils # (Auto) 0.1, Sodium Level 137, Potassium Level 4.2, Chloride Level 104, Carbon Dioxide Level 22, Anion Gap 11, Blood Urea Nitrogen 18, Creatinine 1.37H, Estimat Glomerular Filtration Rate 57, BUN/ Creatinine Ratio 13, Glucose Level 111H, Calcium Level 9.8, Total Bilirubin 0.7 , Aspartate Amino Transf (AST/SGOT) 21, Alanine Aminotransferase (ALT/SGPT) 23, Alkaline Phosphatase 86, Total Protein 8.5H, Albumin 3.9, Amylase Level 31, Lipase 15 10/19/17 13:24: Urine Color YELLOW, Urine Clarity CLEAR, Urine pH 5, Urine Specific [place] 1.025H, Urine Protein NEGATIVE, Urine Glucose (UA) NEGATIVE, Urine Ketones NEGATIVE, Urine Nitrite NEGATIVE, Urine Bilirubin NEGATIVE, Urine Urobilinogen NORMAL, Urine Leukocyte Esterase NEGATIVE, Urine RBC (Auto) 1+H, Urine RBC RARE , Urine WBC RARE, Urine Squamous Epithelial Cells RARE, Urine Crystals NONE, Urine Bacteria NEGATIVE, Urine Casts NONE, Urine Mucus SMALLH, Urine Culture Indicated NO Assessment/Plan Assessment/Plan Assessment/Plan epigastric abdominal pain symptomatic cholelithiasis nausea patient was recommended laparoscopic cholecystectomy with intraoperative cholangiogram all other indicated procedures. he understands risks and benefits and wishes to proceed. patient was discussed doing as outpatient procedures and agrees to schedule for Wednesday. If he has any problems before that he should be seen at that time. Okay to discharge home today, and will arrange for surgery Wednesday. ANGI DE LA CRUZ DO Oct 19, 2017 19:43
== END 2017-10-19 15:47 | disposition home or self-care (01) ==
LOC: EDUNIT# 12:14 → ER 12:16
DX: K80.20 Calculus of gallbladder without cholecystitis without obstruction (principal)
CPT/HCPCS: 36415; 76705; 80053; 81000; 82150; 83690; 85025; 96361; 96374; 96375

== ENCOUNTER 2017-10-21 05:53 | Outpatient (CLI) | payer OTHER ==
[~2017-10-21] VITALS: Ht 182.9 cm; Wt 122.5 kg
[2017-10-22] MEDS ORDERED: DOCU-143 PO (10:33)
[2017-10-22] MEDS ORDERED: ACHD5005 PO (10:33)
== END 2017-10-21 13:22 ==
LOC: PREOP 05:53
PROVIDERS: ATTEND Surgery
DX: Z01.818 Encounter for other preprocedural examination (principal); K80.20 Calculus of gallbladder without cholecystitis without obstruction

== ENCOUNTER 2017-10-22 06:34 | Day surgery (SDC) | payer OTHER ==
[~2017-10-22] VITALS: Ht 182.9 cm; Wt 122.5 kg
--- OUTSIDE RECORDS SUMMARY | 2017-10-22 06:38 | XMS REPORT ---
Author Author KEE LA [facility] Address [address] [place] [address] Care Team Providers Care Gold Assayer Name Role Phone KEE LA Unavailable PROBLEMS Type Condition ICD9-CM Code IFN99-HA Code Onset Dates Condition Status SNOMED Code Problem Major depression, melancholic type F32.9 Active 914660469 Problem Major depressive disorder with single episode, in partial remission F32.4 Active 06222707 Problem Mild episode of recurrent major depressive disorder F33.0 Active 472592911 Assessment Major depressive disorder with single episode, in partial remission F32.4 Feb, Active 86840434 ALLERGIES Unknown Allergies SOCIAL HISTORY No smoking Hx information available PLAN OF CARE VITAL SIGNS MEDICATIONS Unknown Medications RESULTS No Results PROCEDURES Procedure Date Ordered Related Diagnosis Body Site Psychotherapy, patient &/family, 30 minutes, established patient Mar 11, 2016 IMMUNIZATIONS No Known Immunizations
--- OUTSIDE RECORDS SUMMARY | 2017-10-22 06:38 | XMS REPORT ---
Author Author KEE LA Organization [facility] Address [address] [place] [address] Care Team Providers Care Sizing End Bander Name Role Phone KEE LA Unavailable PROBLEMS Type Condition ICD9-CM Code WSN30-UT Code Onset Dates Condition Status SNOMED Code Problem Acute bilateral low back pain with right-sided sciatica M54.41 Active 370330920 Problem Chronic gout without tophus, unspecified cause, unspecified site M1A.9XX0 Active 81960947 Problem Mild episode of recurrent major depressive disorder F33.0 Active 141317843 Problem Major depression, melancholic type F32.9 Active 102378613 Problem Major depressive disorder with single episode, in partial remission F32.4 Active 56740852 ALLERGIES No Information SOCIAL HISTORY Never Assessed PLAN OF CARE Activity Details Follow Up prn Reason:Depression VITAL SIGNS MEDICATIONS Unknown Medications RESULTS No Results PROCEDURES Procedure Date Ordered Result Body Site Psychotherapy, patient &/family, 30 minutes, established patient May 28, 2016 IMMUNIZATIONS No Known Immunizations MEDICAL (GENERAL) HISTORY Type Description Date Medical History Gout Medical History Arthritis Medical History Borderline Diabetic Surgical History Bone graft left wrist 1992 Surgical History [place] teeth removal Surgical History left knee arthroscopy 2008 Surgical History right knee arthroscopy 2011 Hospitalization History Surgery Hospitalization History Pneumonia -- [facility] 1993
--- OUTSIDE RECORDS SUMMARY | 2017-10-22 06:38 | XMS REPORT ---
Author Author KEYANA JOSEPH Organization [facility] Address [address] [place] [address] Care Team Providers Care Assistive Technology Specialist Name Role Phone KEYANA JOSEPH Unavailable PROBLEMS Type Condition ICD9-CM Code DSR80-AK Code Onset Dates Condition Status SNOMED Code Problem Acute bilateral low back pain with right-sided sciatica M54.41 Active 558783009 Problem Chronic gout without tophus, unspecified cause, unspecified site M1A.9XX0 Active 22550329 Problem Mild episode of recurrent major depressive disorder F33.0 Active 479171308 Problem Major depression, melancholic type F32.9 Active 720196913 Problem Major depressive disorder with single episode, in partial remission F32.4 Active 87305287 ALLERGIES No Information ENCOUNTERS Encounter Location Date Diagnosis [facility] [id number] [place] [address] Oct, [facility] [address] [address] Mar, Chronic gout without tophus, unspecified cause, unspecified site M1A.9XX0 [facility] [id number] [place] [address] Jan, [facility] [id number] [place] [address] Dec, [facility] [id number] [place] [address] Dec, Acute bilateral low back pain with right-sided sciatica M54.41 [facility] [id number] [place] [address] Oct, Mild episode of recurrent major depressive disorder F33.0 [facility] [id number] [place] [address] Jul, [facility] [address], [place] [address] Jun, Chronic gout without tophus, unspecified cause, unspecified site M1A.9XX0 [facility] [address] [place] [address] May, [facility] [address] [place] [address] May, [facility] [address] [place] [address] May, Mild episode of recurrent major depressive disorder F33.0 [address] [place] [address] May, Mild episode of recurrent major depressive disorder F33.0 [address] [address] May, Mild episode of recurrent major depressive disorder F33.0 and Major depressive disorder with single episode, in partial remission F32.4 [address] [address] [address] [address] Apr, Chronic gout without tophus, unspecified cause, unspecified site M1A.9XX0 [place] [id number] [address] Apr, Chronic gout without tophus, unspecified cause, unspecified site M1A.9XX0 [address] [address] [place] [address] Apr, [address] [address] [place] [address] Apr, Flu-like symptoms R68.89 and Acute non-recurrent maxillary sinusitis J01.00 [place] [address] [address] Mar, Major depressive disorder with single episode, in partial remission F32.4 [facility] [address] [place] [address] Feb, Major depressive disorder with single episode, in partial remission F32.4 [facility] [address] [place] [address] Feb, Mild episode of recurrent major depressive disorder F33.0 and Major depressive disorder with single episode, in partial remission F32.4 [facility] [address], [place] [address] Feb, Mild episode of recurrent major depressive disorder F33.0 [facility] [address] [place] [address] Feb, Mild episode of recurrent major depressive disorder F33.0 [facility] [address] [place] [address] Jan, Mild episode of recurrent major depressive disorder F33.0 [facility] [address] [place] [address] Jan, Other depression F32.89 [address] [id number] [place] [address] Jan, Reactive depression F32.9 [address] [address] [place] [address] Jan, Reactive depression (situational) F32.9 IMMUNIZATIONS No Known Immunizations SOCIAL HISTORY Never Assessed REASON FOR VISIT medication refills PLAN OF CARE VITAL SIGNS MEDICATIONS Medication Instructions Dosage Frequency Start Date End Date Duration Status Colcrys 0.6 MG Orally Once a day 1 tablet 24h 30 days Active Uloric 80 MG Orally Once a day 1 tablet 24h 30 days Active RESULTS No Results PROCEDURES No Known procedures INSTRUCTIONS MEDICATIONS ADMINISTERED No Known Medications MEDICAL (GENERAL) HISTORY Type Description Date Medical History Gout Medical History Arthritis Medical History Borderline Diabetic Surgical History Bone graft left wrist 1992 Surgical History [place] teeth removal Surgical History left knee arthroscopy 2008 Surgical History right knee arthroscopy 2011 Hospitalization History Surgery Hospitalization History Pneumonia -- [facility] 1993
--- OUTSIDE RECORDS SUMMARY | 2017-10-22 06:40 | XMS REPORT | Continuity of Care Document ---
Demographics Preferred Language Unknown Marital Status Unknown Zoroastrianism Affiliation Unknown Race Unknown Ethnic Group Unknown Author Author [facility] Organization [facility] Address Unknown Phone Unavailable Allergies Active Description Code Type Severity Reaction Onset Reported/Identified Relationship to Patient Clinical Status Yes NKDA NKDA Mild N/ A 09/03/2008 Yes No Known Drug Allergies [id number] Drug Allergy Unknown N/A 10/21/2017 Medications There is no data. Problems Date Dx Coded Attending Type Code Diagnosis Diagnosed By 05/15/2011 Ot 717.7 CHONDROMALACIA PATELLAE 05/15/2011 Ot 727.00 SYNOVITIS NOS 05/15/2011 Ot V57.1 PHYSICAL THERAPY NEC 07/30/2014 Ot 274.9 07/30/2014 Ot 717.40 07/30/2014 Ot 717.40 07/30/2014 Ot 717.7 07/30/2014 Ot V72.83 07/30/2014 Ot V74.8 07/20/2016 Ot 274.9 GOUT NOS 07/20/2016 Ot 717.40 DERANG LAT MENISCUS NOS 07/20/2016 Ot 717.40 DERANG LAT MENISCUS NOS 07/20/2016 Ot 717.7 CHONDROMALACIA PATELLAE 07/20/2016 Ot V72.83 EXAM PRE- OPERATIVE NEC 07/20/2016 Ot V74.8 SCREEN- BACTERIAL DIS NEC 10/19/2017 GURJIT SANTO Ot K80.20 CALCULUS OF GALLBLADDER W/O CHOLECYSTITI 10/19/2017 GURJIT SANTO Ot R10.13 EPIGASTRIC PAIN Procedures There is no data. Results Test Result Range CBC With Differential/Platelet - 05/01/16 09:04 WBC 6.0 x10E3/uL 3.4-10.8 RBC 5.14 x10E6/uL 4.14-5.80 Hemoglobin 14.9 g/dL 12.6-17.7 Hematocrit 43.7 % 37.5-51.0 MCV 85 fL 79-97 MCH 29.0 pg 26.6-33.0 MCHC 34.1 g/dL 31.5-35.7 RDW 13.6 % 12.3-15.4 Platelets 260 x10E3/uL 150-379 Neutrophils 59 % Lymphs 28 % Monocytes 10 % Eos 2 % Basos 0 % Neutrophils (Absolute) 3.5 x10E3/uL 1.4-7.0 Lymphs (Absolute) 1.7 x10E3/uL 0.7-3.1 Monocytes(Absolute) 0.6 x10E3/uL 0.1-0.9 Eos (Absolute) 0.1 x10E3/uL 0.0-0.4 Baso (Absolute) 0.0 x10E3/uL 0.0-0.2 Immature Granulocytes 1 % Immature Grans (Abs) 0.0 x10E3/uL 0.0-0.1 Comp. Metabolic Panel (14) - 05/01/16 09:04 Glucose, Serum 107 mg/dL 65-99 BUN 12 mg/dL 6-24 Creatinine, Serum 1.46 mg/dL 0.76-1.27 eGFR If NonAfricn Am 59 mL/min/1.73 >59 eGFR If Africn Am 68 mL/min/1.73 >59 BUN/Creatinine Ratio 8 9-20 Sodium, Serum 139 mmol/L 134-144 Potassium, Serum 4.6 mmol/L 3.5-5.2 Chloride, Serum 99 mmol/L 96-106 Carbon Dioxide, Total 26 mmol/L 18-29 Calcium, Serum 9.7 mg/dL 8.7-10.2 Protein, Total, Serum 7.9 g/dL 6.0-8.5 Albumin, Serum 4.3 g/dL 3.5-5.5 Globulin, Total 3.6 g/dL 1.5-4.5 A/G Ratio 1.2 1.1-2.5 Bilirubin, Total 0.5 mg/dL 0.0-1.2 Alkaline Phosphatase, S 99 IU/L 39-117 AST (SGOT) 24 IU/L 0-40 ALT (SGPT) 29 IU/L 0-44 Lipid Panel - 05/01/16 09:04 Cholesterol, Total 176 mg/dL 100-199 Triglycerides 137 mg/dL 0-149 HDL Cholesterol 39 mg/dL >39 VLDL Cholesterol Ozzy 27 mg/dL 5-40 LDL Cholesterol Calc 110 mg/dL 0-99 Hemoglobin A1c - 05/01/16 09:04 Hemoglobin A1c 5.7 % 4.8-5.6 Complete blood count (CBC) with automated white blood cell (WBC) differential - 10/19/17 12:41 Blood leukocytes automated count (number/volume) 8.2 10*3/uL 4.3-11.0 Blood erythrocytes automated count (number/volume) 4.84 10*6/uL 4.35-5.85 Venous blood hemoglobin measurement (mass/volume) 14.0 g/dL 13.3-17.7 Blood hematocrit (volume fraction) 40 % 40-54 Automated erythrocyte mean corpuscular volume 82 [foz_us] 80-99 Automated erythrocyte mean corpuscular hemoglobin (mass per erythrocyte) 29 pg 25-34 Automated erythrocyte mean corpuscular hemoglobin concentration measurement ( mass/volume) 35 g/dL 32-36 Automated erythrocyte distribution width ratio 12.4 % 10.0-14.5 Automated blood platelet count (count/volume) 277 10*3/uL 130-400 Automated blood platelet mean volume measurement 9.3 [foz_us] 7.4-10.4 Automated blood neutrophils/100 leukocytes 68 % 42-75 Automated blood lymphocytes/100 leukocytes 19 % 12-44 Blood monocytes/100 leukocytes 11 % 0-12 Automated blood eosinophils/100 leukocytes 2 % 0-10 Automated blood basophils/100 leukocytes 1 % 0-10 Blood neutrophils automated count (number/volume) 5.5 10*3 1.8-7.8 Blood lymphocytes automated count (number/volume) 1.6 10*3 1.0-4.0 Blood monocytes automated count (number/volume) 0.9 10*3 0.0-1.0 Automated eosinophil count 0.2 10*3/uL 0.0-0.3 Automated blood basophil count (count/volume) 0.1 10*3/uL 0.0-0.1 Comprehensive metabolic panel - 10/19/17 12:41 Serum or plasma sodium measurement (moles/volume) 137 mmol/L 135-145 Serum or plasma potassium measurement (moles/volume) 4.2 mmol/L 3.6-5.0 Serum or plasma chloride measurement (moles/volume) 104 mmol/L 98-107 Carbon dioxide 22 mmol/L 21-32 Serum or plasma anion gap determination (moles/volume) 11 mmol/L 5-14 Serum or plasma urea nitrogen measurement (mass/volume) 18 mg/dL 7-18 Serum or plasma creatinine measurement (mass/volume) 1.37 mg/dL 0.60-1.30 Serum or plasma urea nitrogen/creatinine mass ratio 13 NRG Serum or plasma creatinine measurement with calculation of estimated glomerular filtration rate 57 NRG Serum or plasma glucose measurement (mass/volume) 111 mg/dL 70-105 Serum or plasma calcium measurement (mass/volume) 9.8 mg/dL 8.5-10.1 Serum or plasma total bilirubin measurement (mass/volume) 0.7 mg/dL 0.1-1.0 Serum or plasma alkaline phosphatase measurement (enzymatic activity/volume) 86 U/L 40-136 Serum or plasma aspartate aminotransferase measurement (enzymatic activity/ volume) 21 U/L 5-34 Serum or plasma alanine aminotransferase measurement (enzymatic activity/volume ) 23 U/L 0-55 Serum or plasma protein measurement (mass/volume) 8.5 g/dL 6.4-8.2 Serum or plasma albumin measurement (mass/volume) 3.9 g/dL 3.2-4.5 Serum or plasma amylase measurement (enzymatic activity/volume) - 10/19/17 12: 41 Serum or plasma amylase measurement (enzymatic activity/volume) 31 U /L 25-125 Lipase - 10/19/17 12:41 Lipase 15 U/L 8-78 Complete urinalysis with reflex to culture - 10/19/17 13:24 Urine color determination YELLOW NRG Urine clarity determination CLEAR NRG Urine pH measurement by test strip 5 5-9 Specific gravity of urine by test strip 1.025 1.016- 1.022 Urine protein assay by test strip, semi-quantitative NEGATIVE NEGATIVE Urine glucose detection by automated test strip NEGATIVE NEGATIVE Erythrocytes detection in urine sediment by light microscopy 1+ NEGATIVE Urine ketones detection by automated test strip NEGATIVE NEGATIVE Urine nitrite detection by test strip NEGATIVE NEGATIVE Urine total bilirubin detection by test strip NEGATIVE NEGATIVE Urine urobilinogen measurement by automated test strip (mass/volume) NORMAL NORMAL Urine leukocyte esterase detection by dipstick NEGATIVE NEGATIVE Automated urine sediment erythrocyte count by microscopy (number/high power field) RARE NRG Automated urine sediment leukocyte count by microscopy (number/high power field ) RARE NRG Bacteria detection in urine sediment by light microscopy NEGATIVE NRG Squamous epithelial cells detection in urine sediment by light microscopy RARE NRG Crystals detection in urine sediment by light microscopy NONE NRG Casts detection in urine sediment by light microscopy NONE NRG Mucus detection in urine sediment by light microscopy SMALL NRG Complete urinalysis with reflex to culture NO NRG Encounters ACCT No. Visit Date/Time Discharge Status Pt. Type Provider Facility Loc./Unit Complaint [id number] 05/02/2016 13:05:00 Document Registration [id number] 10/21/2017 05:53:00 10/21/2017 13:22:00 DIS Outpatient ANGI DE LA CRUZ DO [facility] PREOP SYMPTOMATIC CHOLELITHIASIS [id number] 10/19/2017 12:16:00 10/19/2017 15:47:00 DIS Emergency GURJIT SANTO [facility] ER ABD PAIN [id number] 10/22/2017 06:34:00 ACT Outpatient ANGI DE LA CRUZ DO [facility] SDC SYMPTOMATIC CHOLELITHIASIS [id number] 07/30/2014 13:10:00 Document Registration [id number] 07/30/2014 13:10:00 Document Registration [id number] 05/15/2011 05:35:00 Document Registration [id number] 12/30/2016 10:55:00 12/30/2016 23:59:59 CLS Outpatient STIVEN STANLEY LAC [facility]
[2017-10-22] MEDS ORDERED: ATRACURIUM 50 MG/5 ML (TRACRIUM) IV ONE ×3 (07:12→09:22)
[2017-10-22] MEDS ORDERED: proPOfol 200 MG/20 ML (DIPRIVAN) VIAL IV ONE ×3 (07:15→10:24)
[2017-10-22] MEDS ORDERED: LIDOCAINE PF 2% 5 ML (XYLOCAINE) VIAL ONE ×2 (07:15→07:46)
[2017-10-22] MEDS ORDERED: DEXAMETHASONE 10 MG/ML (DECADRON) 1 ML VIAL ONE ×2 (07:16→07:46)
[2017-10-22] MEDS ORDERED: fentaNYL INJECTION 100 MCG/2 ML AMP ONE (07:16)
[2017-10-22] MEDS ORDERED: MIDAZOLAM 2 MG/2 ML (VERSED) VIAL ONE (07:16)
[2017-10-22] MEDS ORDERED: ceFAZolin 2 GM IV Premixed 50 ML IV ONE (07:30)
[2017-10-22] MEDS ORDERED: LIDOCAINE 1% INJ 20 ML 20 ML VIAL ONE (07:32)
[2017-10-22] MEDS ORDERED: BUPIVACAINE 0.5% 30 ML (SENSORCAINE) VIAL ONE (07:32)
[2017-10-22 07:36] VITALS: BP 133/90
[2017-10-22] MEDS: LACTATED RINGERS 1,000 ML IV PRN ×2 (07:40→09:30)
[2017-10-22] MEDS ORDERED: SEVOFLURANE (ULTANE) 15 ML INHAL SOLN ONE ×7 (07:46→10:43)
[2017-10-22] MEDS ORDERED: LACTATED RINGERS 1,000 ML IV ONE (07:46)
[2017-10-22] MEDS ORDERED: HURRICAINE EXT TUBE (BENZOCAINE) ONE (07:46)
--- NOTE | 2017-10-22 08:57 | Progress Note-Pre Operative ---
Pre-Operative Progress Note H&P Reviewed The H&P was reviewed, patient examined and no changes noted. Date Seen by Provider: Oct 22, 2017 Time Seen by Provider: 08:56 Date H&P Reviewed: Oct 22, 2017 Time H&P Reviewed: 08:57 Pre-Operative Diagnosis: epigastric abdominal pain, symptomatic cholelithiasis ANGI DE LA CRUZ DO Oct 22, 2017 08:57
[2017-10-22] MEDS ORDERED: meTOprolol 5 MG/5 ML (LOPRESSOR) VIAL ONE (09:38)
[2017-10-22] MEDS ORDERED: GLYCOPYRROLATE 0.2 MG/ML (ROBINUL) 2 ML VIAL ONE (10:15)
[2017-10-22] MEDS ORDERED: NEOSTIGMINE 1 MG/ML 5 ML SYRINGE ONE ×2 (10:15→10:43)
[2017-10-22] MEDS ORDERED: morphine PF (DURAMORPH) 10 MG/10 ML AMP ONE (10:26)
--- NOTE | 2017-10-22 10:32 | Progress Note-Post Operative ---
Post-Operative Progess Note Surgeon (s)/Asset Protection Manager (s) Surgeon ANGI DE LA CRUZ DO Asset Protection Manager: Dr. Flores Pre-Operative Diagnosis epigastric abdominal pain, symptomatic cholelithiasis Post-Operative Diagnosis same Procedure & Operative Findings Date of Procedure 10/22/17 Procedure Performed/Findings lap promise c ioc Anesthesia Type general Estimated Blood Loss Estimated blood loss (mL): minimal Specimens/Packing Specimens Removed gallbladder ANGI DE LA CRUZ DO Oct 22, 2017 10:32
[2017-10-22] MEDS ORDERED: ACHD5005 PO (10:33)
[2017-10-22] MEDS ORDERED: DOCU-143 PO (10:33)
--- NOTE | 2017-10-22 10:34 | Discharge Inst-Simple/Standard ---
Discharge Inst-Standard Discharge Medications New, Converted or Re-Newed RX: RX on Chart Patient Instructions/Follow Up Plan of Care/Instructions/FU: 2 weeks Eliezer Activity as Tolerated: No Discharge Diet: Regular Diet Other Inst to Patient Follow up Appt: Make appointment for 2 weeks. Instructions: No lifting greater than 10 pounds. No strenuous activity. May shower in 24 hours, no tub bath or soaking. Use incentive spirometer at home as directed. No Smoking Skin/Wound Care: You have special glue over incisions it will fall off on its own. Symptoms to Report: Appetite Changes, Extremity Discoloration, Numbness/Tingling, Swelling Increased , Bleeding Excessive, Eyesight Changes, Pain Increased, Urine Color Change, Constipation(Persistent), Fever over 101 degree F, Pain/Pressure in chest, Urinating Difficulty, Cough Up/Vomit Blood, Heart Beat Irreg/Pounding, Pain/ Pressure in jaw, Vaginal Bleeding Increase, Cramps in feet or legs, Lightheadedness, Pain/Pressure in shoulder, Diarrhea(Persistent), Memory Changes Suddenly, Questions/Concerns, Weight gain consecutive days, Dizziness/ Fainting, Nausea/Vomiting, Shortness of Breath, Weight gain over 2 pounds. If eyes or skin turn yellow notify physician. If questions or concerns contact your physician Or seek help at emergency department. ANGI DE LA CRUZ DO Oct 22, 2017 10:34
[2017-10-22] MEDS ORDERED: HYDROcodone/APAP 5 MG/325 MG (LORTAB) TAB PO PRN (10:45)
[2017-10-22] MEDS ORDERED: MEPERIDINE (DEMEROL) INJ 50 MG/ML IVP PRN (11:00)
[2017-10-22] MEDS ORDERED: ONDANSETRON 4 MG/2 ML (SDV) Z0FRAN IVP PRN (11:00)
[2017-10-22] MEDS ORDERED: morphine INJ 10 MG/ML 1ML (SYR OR VIAL) IVP PRN (11:00)
--- NOTE | 2017-10-22 11:02 | Diagnostic Imaging Report ---
INDICATION: Cholelithiasis and gallbladder sludge. Fluoroscopy was provided in the OR during intraoperative cholangiogram. 14 seconds of fluoroscopy was utilized. Images demonstrate contrast being injected via the cystic duct remnant. Intrahepatic and extrahepatic bile ducts are normal in caliber. No filling defects are seen to suggest retained stone. There is contrast passing into the duodenum. IMPRESSION: Fluoroscopy for intraoperative cholangiogram. Dictated by: Dictated on workstation # [id number]
[2017-10-22 11:40] VITALS: BP 137/101
[2017-10-22 12:10] VITALS: BP 142/102
--- NOTE | 2017-10-22 12:23 | Anesthesia-General Post-Op ---
General Patient Condition Mental Status/LOC: Same as Preop Cardiovascular: Satisfactory Nausea/Vomiting: Absent Respiratory: Satisfactory Pain: Controlled Complications: Absent Post Op Complications Complications None Follow Up Care/Instructions Patient Instructions None needed. Anesthesia/Patient Condition Patient Condition Patient is doing well, no complaints, stable vital signs, no apparent adverse anesthesia problems. No complications reported per nursing. SAM SOLOMON CRNA Oct 22, 2017 12:23
[2017-10-22 12:40] VITALS: BP 140/91
[2017-10-22 13:10] VITALS: BP 140/91
--- NOTE | 2017-10-22 20:04 | OPERATIVE REPORT ---
DATE OF SERVICE: 10/22/2017 PREOPERATIVE DIAGNOSIS: Symptomatic cholelithiasis epigastric abdominal pain. POSTOPERATIVE DIAGNOSIS: Symptomatic cholelithiasis epigastric abdominal pain. PROCEDURE: Laparoscopic cholecystectomy with intraoperative cholangiogram. SURGEON: Jose Antonio Martins DO PROCESS LABORATORY SPECIALIST: Dr. Jackson, assisted in retraction, dissection and closure. ANESTHESIA: General. ESTIMATED BLOOD LOSS: Minimal. COMPLICATIONS: None. INDICATIONS: The patient is a 42-year-old male who over the last month or so has been having some epigastric abdominal pain. He had an ultrasound demonstrating stones and some small amount of sludge. The patient was explained risks and benefits of procedure and wished to proceed with procedure. Consent was signed in the chart. PROCEDURE: The patient was taken to the operating suite, was prepped and draped in sterile fashion. Surgical pause was performed. Local anesthetic was infiltrated just above the umbilicus. Incision was made. Dissection was taken down to the fascia, which was then scored and grasped with Adele's and elevated. The abdomen was then entered. A 0 Vicryl suture was placed in a [id number] fashion for closure at the end. A balloon trocar was inserted in the abdomen and pneumoperitoneum was achieved. Under direct visualization of the laparoscope, a 5 mm trocar was then placed in the subxiphoid region and two 5 mm trocars were placed in the right upper quadrant. The gallbladder was grasped and elevated. There were multiple adhesions to it, which were then taken down with a [place] with some cautery. The cystic duct and cystic artery were then dissected out. Clips were placed on the proximal and distal portion of the cystic artery. The clip was placed on the distal portion of the cystic duct. The duct was then partially transected. Arrow catheter was inserted and cholangiogram was performed. There were no filling defects. Contrast made its way into the duodenum without difficulty. The catheter was then removed. Clips were placed on the proximal portion of the cystic duct and the duct and artery were then completely transected. Hook cautery was used to dissect the gallbladder from the gallbladder fossa achieving hemostasis. Once removed, it was placed in an Endobag and removed through the 12 mm trocar site. The abdomen was irrigated with copious amounts of irrigation and suction. Hemostasis had been achieved. The abdomen was then desufflated, the trocars removed. The 12 mm fascial defect was then closed using 0 Vicryl that was previously placed. The skin was then closed using 4-0 Monocryl in a subcuticular fashion. The abdomen was then washed and dried and Skin Affix was placed over incisions. The patient tolerated procedure well without any complications and taken to recovery room in stable condition. Job ID: [id number] DocumentID: [id number] Dictated Date: 10/22/2017 12:44:09 Sewer Contractor Date: 10/22/2017 20:04:06 Dictated By: DO WIN MANUEL
== END 2017-10-22 13:10 | disposition home or self-care (01) ==
LOC: SDC 06:34
PROVIDERS: ATTEND Surgery
DX: K80.10 Calculus of gallbladder with chronic cholecystitis without obstruction (principal); E66.01 Morbid (severe) obesity due to excess calories; Z68.36 Body mass index [BMI] 36.0-36.9, adult
CPT/HCPCS: 87081

== ENCOUNTER → 2022-05-15 | Outpatient (CLI) | payer BC, OTHER ==
[~2022-05-15] MED LIST changes: +ACHD5005 PO; +DOCU-143 PO; +HOLD METFORMIN - RECEIVED CONTRAST 20 ML VIAL IV SCH; +IOHEXOL 350 MG/ML 100 ML (OMNIPAQUE 350) VIAL IV ONE; +NS 100 ML (IVPB) BAG IV ONE
--- NOTE | 2022-05-15 13:40 | Diagnostic Imaging Report ---
EXAMINATION: CT abdomen and pelvis with intravenous contrast. TECHNIQUE: Multiple contiguous axial images were obtained through the abdomen and pelvis after the uneventful administration of intravenous contrast. All CT scans use one or more of the following dose optimizing techniques: automated exposure control, MA and/or KvP adjustment based on patient size and exam type or iterative reconstruction. HISTORY: ABD WALL MASS COMPARISON: None available. FINDINGS: Lung bases: The lung bases are clear. Solid organs: The liver is normal without focal lesion. The gallbladder is surgically absent. There is no biliary ductal dilation. Pancreas is normal. Spleen is normal. Adrenal glands are normal. There are nonobstructing bilateral renal calculi without hydronephrosis. Bowel: The stomach and small bowel are normal without obstruction. There is a segment of wall thickening within the sigmoid colon with dilation of the proximal colon. Just proximal to this is another segment of abnormal wall thickening within the distal descending colon. The appendix is normal. Peritoneum: There is no intraperitoneal free fluid or free air. There are few prominent left iliac chain lymph nodes. A medical detail representative left external iliac chain node measures 1.5 x 1.1 cm (series 2 image 22). Vasculature: Normal without aneurysm. Musculoskeletal: No suspicious osseous lesion or compression fracture. There is a ventral abdominal wall hernia containing fat through a 3.2 cm defect (series 2 image 115). Pelvis: The prostate gland is normal. The urinary bladder is normal. IMPRESSION: 1. A fat-containing ventral abdominal wall hernia through a 3.2 cm defect. 2. Multifocal areas of wall thickening seen within the descending and sigmoid colon. These findings could be seen with infectious or inflammatory colitis. Consider followup with colonoscopy to exclude colon neoplasm. Dictated by: Dictated on workstation # [id number]
== END ==
LOC: RAD 12:57
PROVIDERS: ATTEND Surgery
DX: K43.9 Ventral hernia without obstruction or gangrene (principal); K63.9 Disease of intestine, unspecified
CPT/HCPCS: 74177

== ENCOUNTER 2022-06-03 05:41 | Outpatient (CLI) | payer BC ==
[~2022-06-03] VITALS: Ht 180.3 cm; Wt 124.2 kg
[~2022-06-03 05:41] MED LIST changes: -HOLD METFORMIN - RECEIVED CONTRAST 20 ML VIAL IV SCH; -IOHEXOL 350 MG/ML 100 ML (OMNIPAQUE 350) VIAL IV ONE; -NS 100 ML (IVPB) BAG IV ONE
[2022-06-05] MEDS ORDERED: TEST100V9 IM (14:23)
== END 2022-06-05 14:27 | disposition home or self-care (01) ==
LOC: PREOP 05:41
PROVIDERS: ATTEND Surgery
DX: Z01.818 Encounter for other preprocedural examination (principal)

== ENCOUNTER 2022-06-15 06:53 | Day surgery (SDC) | payer BC ==
[~2022-06-15] VITALS: Ht 180.3 cm; Wt 124.2 kg
[~2022-06-15 06:53] MED LIST changes: +TEST100V9 IM
[2022-06-15] MEDS ORDERED: LACTATED RINGERS 1,000 ML IV STA (07:05)
[2022-06-15 07:20] VITALS: BP 146/98
[2022-06-15] MEDS ORDERED: PROPOFOL INJECTION 50 ML IV ONE ×2 (07:27→07:56)
--- NOTE | 2022-06-15 08:11 | Anesthesia-General Post-Op ---
MAC Patient Condition Mental Status/LOC: Same as Preop Cardiovascular: Satisfactory Nausea/Vomiting: Absent Respiratory: Satisfactory Pain: Controlled Complications: Absent Post Op Complications Complications None Follow Up Care/Instructions Patient Instructions None needed. Anesthesiology Discharge Order Discharge Order Patient is doing well, no complaints, stable vital signs, no apparent adverse anesthesia problems. No complications reported per nursing. JESE BENNETT CRNA Jun 15, 2022 08:11
[2022-06-15] MEDS ORDERED: AMOX1TAB12 PO (08:12)
--- NOTE | 2022-06-15 08:12 | Discharge Inst-Simple/Standard ---
Discharge Inst-Standard Discharge Medications New, Converted or Re-Newed RX: Transmitted to Pharmacy Patient Instructions/Follow Up Plan of Care/Instructions/FU: 2 weeks Eliezer Activity as Tolerated: Yes Discharge Diet: Regular Diet ANGI DE LA CRUZ DO Jun 15, 2022 08:12
[2022-06-15 08:15] VITALS: BP 184/101
[2022-06-15 08:20] VITALS: BP 153/70
[2022-06-15] MEDS ORDERED: ONDANSETRON 4 MG/2 ML (SDV) Z0FRAN ONE (08:44)
[2022-06-15] MEDS ORDERED: ONDANSETRON 4 MG/2 ML (SDV) Z0FRAN IVP ONE (09:00)
[2022-06-15 09:05] VITALS: BP 153/70
--- NOTE | 2022-06-15 09:36 | Progress Note-Post Operative ---
Post-Operative Progess Note Surgeon (s)/Forming Machine Upkeep Mechanic Helper (s) Surgeon ANGI DE LA CRUZ DO Forming Machine Upkeep Mechanic Helper: na Pre-Operative Diagnosis screening colonoscopy Post-Operative Diagnosis colitis left colon Procedure & Operative Findings Date of Procedure 06/15/22 Procedure Performed/Findings flex sig Anesthesia Type per explosives handler Estimated Blood Loss Estimated blood loss (mL): none Specimens/Packing Specimens Removed sigmoid inflammation ANGI DE LA CRUZ DO Jun 15, 2022 09:36
--- NOTE | 2022-06-15 14:37 | OPERATIVE REPORT ---
DATE OF SERVICE: 06/15/2022 PREOPERATIVE DIAGNOSIS: Screening colonoscopy. POSTOPERATIVE DIAGNOSES: Colitis, sigmoid area. PROCEDURE: Flexible sigmoidoscopy with cold biopsies. SURGEON: Angi Martins DO ANESTHESIA: Per SAMPLING THEORY TEACHER. ESTIMATED BLOOD LOSS: None. COMPLICATIONS: None. INDICATIONS: The patient is a 47-year-old male with screening colonoscopy. He understands risks and benefits of procedure and wished to proceed. Consent was signed in chart. DESCRIPTION OF PROCEDURE: The patient was taken to the endoscopy suite, placed in left lateral recumbent position. Timeout was performed. Digital rectal exam was performed. No palpable polyps, masses or ulcerations. Scope was inserted in rectum and advanced up to the sigmoid colon where demonstrated a significant amount of inflammation. The tight turn into the area of inflammation in the regular colonoscope was unable to be passed through this area safely. The scope was then slowly retracted back. Pediatric scope was then utilized. Scope was inserted in the rectum, advanced to the area of inflammation again with tight turn, which was able to make the first turn and the second turn into the sigmoid, still some significant inflammation, unable to advance the scope safely with the inflammation. Biopsy of the inflammation was obtained. The scope was then slowly retracted back until completely removed, noting no other pathology. The patient tolerated the procedure well without complication and taken to recovery in stable condition. RECOMMENDATIONS: The patient will be started on Augmentin 875 b.i.d. for 10 days. Would try to calm this down and follow up on pathology in 2 weeks. We then plan on colonoscopy in about 6-8 weeks. We would also plan on doing a 2-day colonic prep. Job ID: [id number] DocumentID: [id number] Dictated Date: 06/15/2022 09:43:17 Placement Secretary Date: 06/15/2022 14:35:00 Dictated By: ANGI MARTINS DO
== END 2022-06-15 09:15 | disposition home or self-care (01) ==
LOC: ENDO 06:53
PROVIDERS: ATTEND Surgery
DX: Z12.11 Encounter for screening for malignant neoplasm of colon (principal); K52.9 Noninfective gastroenteritis and colitis, unspecified; K63.5 Polyp of colon; K63.89 Other specified diseases of intestine; R19.09 Other intra-abdominal and pelvic swelling, mass and lump; E66.9 Obesity, unspecified; Z68.38 Body mass index [BMI] 38.0-38.9, adult

== ENCOUNTER 2022-07-15 05:38 | Outpatient (CLI) | payer BC ==
[~2022-07-15] VITALS: Ht 180.3 cm; Wt 124.2 kg
[~2022-07-15 05:38] MED LIST changes: +AMOX1TAB12 PO
== END 2022-07-15 10:51 | disposition home or self-care (01) ==
LOC: PREOP 05:38
PROVIDERS: ATTEND Surgery
DX: Z01.818 Encounter for other preprocedural examination (principal)

== ENCOUNTER 2022-07-27 06:51 | Day surgery (SDC) | payer BC ==
[~2022-07-27] VITALS: Ht 180.3 cm; Wt 124.2 kg
[2022-07-27] MEDS ORDERED: LACTATED RINGERS 1,000 ML IV STA (07:06)
[2022-07-27 07:17] VITALS: BP 130/97
[2022-07-27] MEDS ORDERED: PROPOFOL INJECTION 50 ML IV ONE ×2 (07:46→08:06)
--- NOTE | 2022-07-27 07:50 | Progress Note-Pre Operative ---
Pre-Operative Progress Note Date H&P Reviewed: Jul 27, 2022 Time H&P Reviewed: 07:50 History & Physical: H&P Reviewed, Patient Examed, No changes noted Pre-Operative Diagnosis: hx colitis, poor prep ANGI DE LA CRUZ DO Jul 27, 2022 07:50
--- NOTE | 2022-07-27 08:29 | Anesthesia-General Post-Op ---
MAC Patient Condition Mental Status/LOC: Same as Preop Cardiovascular: Satisfactory Nausea/Vomiting: Absent Respiratory: Satisfactory Pain: Controlled Complications: Absent Post Op Complications Complications None Follow Up Care/Instructions Patient Instructions None needed. Anesthesiology Discharge Order Discharge Order Patient is doing well, no complaints, stable vital signs, no apparent adverse anesthesia problems. No complications reported per nursing. JESE BENNETT CRNA Jul 27, 2022 08:29
[2022-07-27 08:30] VITALS: BP 149/89
[2022-07-27 08:35] VITALS: BP 149/86
--- NOTE | 2022-07-27 08:53 | Discharge Inst-Simple/Standard ---
Discharge Inst-Standard Patient Instructions/Follow Up Plan of Care/Instructions/FU: 2 weeks Eliezer Activity as Tolerated: Yes Discharge Diet: Regular Diet ANGI DE LA CRUZ DO Jul 27, 2022 08:53
--- NOTE | 2022-07-27 08:55 | Progress Note-Post Operative ---
Post-Operative Progess Note Surgeon (s)/Pricing Analyst (s) Surgeon ANGI DE LA CRUZ DO Pricing Analyst: na Pre-Operative Diagnosis hx colitis, poor prep Post-Operative Diagnosis resolving colitis, diverticulosis Procedure & Operative Findings Date of Procedure 07/27/22 Procedure Performed/Findings colonoscopy c cold biopsies Anesthesia Type per vehicle fuel systems converter Estimated Blood Loss Estimated blood loss (mL): none Specimens/Packing Specimens Removed ileocecal valve, sigmoid colon ANGI DE LA CRUZ DO Jul 27, 2022 08:55
[2022-07-27] MEDS ORDERED: KETOROLAC 30 MG/ML VIAL ONE (08:59)
[2022-07-27] MEDS ORDERED: KETOROLAC 15 MG/ML VIAL IVP PRN (09:00)
[2022-07-27 09:20] VITALS: BP 149/86
[2022-07-27] MEDS ORDERED: KETOROLAC 30 MG/ML VIAL IVP PRN ×2 (09:30)
--- NOTE | 2022-07-27 21:45 | OPERATIVE REPORT ---
DATE OF SERVICE: 07/27/2022 PREOPERATIVE DIAGNOSIS: History of colitis, poor prep. POSTOPERATIVE DIAGNOSIS: Resolving colitis, diverticulosis. PROCEDURE: Colonoscopy with cold biopsy. SURGEON: Angi Martins DO ANESTHESIA: Per BOILER OPERATOR HELPER. ESTIMATED BLOOD LOSS: None. COMPLICATIONS: None. SPECIMENS: From ileocecal valve and sigmoid colon. INDICATIONS: The patient is a 47-year-old male needing colonoscopy. He had history of colitis and poor prep. He understands risks and benefits of procedure and wishes to proceed. Consent was signed in chart. DESCRIPTION OF PROCEDURE: The patient was taken to endoscopy suite, placed in left lateral recumbent position. Timeout was performed. Digital rectal exam was performed. No palpable polyps, masses or ulcerations. Scope was inserted in the rectum, advanced all the way to the cecum with minimal difficulty. Prep was adequate. Scope was slowly retracted back. No polyps, masses or ulcerations in the cecum. The ileocecal valve, area of inflammation and slightly more prominent. Biopsy of this area was obtained. Scope was then continuously slowly retracted back. No polyps, masses or ulcerations in the ascending, transverse and descending colon. In the sigmoid colon, area of some resolving colitis appearance. Cold biopsy of this area was obtained. Scope was then continuously retracted back to the distal portion of the sigmoid colon where again some changes of colitis, resolving. Cold biopsy of this area was obtained as well. We also noted some diverticulosis in the sigmoid colon. Scope was then slowly retracted back to the rectum. No other pathology noted. Scope was retroflexed noting no other pathology. Scope was returned to its normal position, slowly withdrawn until completely removed. The patient tolerated the procedure well without any complications, taken to recovery room in stable condition. RECOMMENDATIONS: The patient will have repeat colonoscopy in 10 years unless family history of colon cancer, which will then be 5 years. Any issues before that, be seen at that time. The patient will follow up on biopsy results. Then, we will discuss surgical intervention for hernia. Job ID: [id number] DocumentID: [id number] Dictated Date: 07/27/2022 12:46:27 Coordinate Measuring Machine Technician Date: 07/27/2022 21:42:00 Dictated By: ANGI MARTINS DO
== END 2022-07-27 09:20 | disposition home or self-care (01) ==
LOC: ENDO 06:51
PROVIDERS: ATTEND Surgery
DX: K52.9 Noninfective gastroenteritis and colitis, unspecified (principal); K57.30 Diverticulosis of large intestine without perforation or abscess without bleeding; K43.2 Incisional hernia without obstruction or gangrene; E66.9 Obesity, unspecified; Z68.38 Body mass index [BMI] 38.0-38.9, adult

== ENCOUNTER 2022-11-25 08:11 | Inpatient (IN) | payer BC ==
[~2022-11-25] VITALS: Ht 180.3 cm; Wt 108.6 kg
[2022-11-25] MEDS ORDERED: NS IV 1000 ML 1,000 ML IV STA (08:28)
[2022-11-25] MEDS ORDERED: morphine INJ 10 MG/ML 1ML (SYR OR VIAL) IVP STA (08:28)
[2022-11-25] MEDS ORDERED: ONDANSETRON INJECTION 4 MG/2 ML (SDV) IVP ONE (08:30)
[2022-11-25] MEDS ORDERED: FAMOTIDINE INJ 20MG/2ML VIAL IVP ONE (08:30)
--- NOTE | 2022-11-25 08:32 | ED Abdominal Pain ---
General Chief Complaint: Abdominal/GI Problems Stated Complaint: ABD PAIN | BLOATING | CANNOT EAT Nursing Triage Note: PT AMB TO RM 6 PT CO OF ABD PAIN, BLOATING, 20#WT LOSS PAST COUPLE WEEKS. UNABLE TO EAT. PT CO OF PAIN 10/19. STARTED EARLY OCTOBER. Source of Information: Patient, Old Records Exam Limitations: No Limitations History of Present Illness Date Seen by Provider: Nov 25, 2022 Time Seen by Provider: 08:14 Initial Comments 47-year-old male with relatively recent history of unspecified colitis coming in due to abdominal pain, nausea, and nonbloody diarrhea. The pain has been going on for 3 months, worsening over the past month. He states he really has not eaten anything in 3 weeks, and has lost 25 pounds in that time. He is able to drink some fluids. The pain is generalized, nothing really seems to make it better or worse, has been trying Tylenol for it. He had a CT within the past year which was concerning for colitis. They try to do a colonoscopy, but it was "tight" and he was unable to complete it per the patient. He took some antibiotics and they repeated it 6 weeks later showing improvement in the colitis. There was a biopsy and reportedly it did not show anything concerning. Patient denies any fever, chest pain, shortness of breath, dysuria, rash, or any other concerns. He has had his gallbladder removed in the past and does have a hernia. Allergies and Home Medications Allergies Coded Allergies: No Known Drug Allergies (Unverified , 11/25/22) Patient Home Medication List Home Medication List Reviewed: Yes Testosterone Cypionate (Testosterone Cypionate) 100 Mg/Ml Vial, 100 MG IM UD, (Reported) Entered as Reported by: HUGO Culp [facility] on 06/05/22 3180 Review of Systems Review of Systems Constitutional: No fever EENTM: No Symptoms Reported Respiratory: No Symptoms Reported Cardiovascular: No Symptoms Reported Gastrointestinal: See HPI Genitourinary: No Symptoms Reported Musculoskeletal: no symptoms reported Skin: no symptoms reported Psychiatric/Neurological: No Symptoms Reported Endocrine: No Symptoms Reported Hematologic/Lymphatic: No Symptoms Reported Past Lhrovlo-Tfxglo-Jilubq Hx Patient Social History Tobacco Use?: No Use of E-Cig and/or Vaping dev: No Substance use?: No Alcohol Use?: No Pt feels they are or have been: No Immunizations Up To Date First/Initial COVID19 Vaccinat: YES Second COVID19 Vaccination Gerardo: YES Third COVID19 Vaccination Date: NO Seasonal Allergies Seasonal Allergies: Yes (MILD) Past Medical History Surgery/Hospitalization HX: RECENT COLONOSCOPY, GALLBLADDER Surgeries: Yes (knee scopes, WRIST FUSION, oral sx) Gallbladder Respiratory: No Cardiac: No Neurological: No Reproductive Disorders: No Sexually Transmitted Disease: No HIV/AIDS: No Genitourinary: No Gastrointestinal: No Gall Bladder Disease Musculoskeletal: Yes (GOUT) Gout Endocrine: No HEENT: No Loss of Vision: Bilateral Hearing Impairment: Denies Cancer: No Psychosocial: No Integumentary: No Blood Disorders: No Adverse Reaction/Blood Tranf: No (N/A) Family Medical History No Pertinent Family Hx Physical Exam Vital Signs Vital Signs - First Documented 11/25/22 08:15 Temp 37.1 Pulse 93 Resp 18 B/P (MAP) 146/104 (118) Pulse Ox 95 Capillary Refill : Less Than 3 Seconds Height/Weight/BMI Height: 6'0.00" Weight: 270lbs. 0.0oz. 122.106649nb; 32.00 BMI Method:Stated General Appearance: WD/WN, no apparent distress HEENT: PERRL/EOMI, normal ENT inspection, pharynx normal Neck: non-tender, full range of motion, supple, normal inspection Respiratory: chest non-tender, lungs clear, normal breath sounds, no respiratory distress, no accessory muscle use Cardiovascular: regular rate, rhythm, no edema, no murmur Gastrointestinal: normal bowel sounds, soft; No distended, No guarding, No rebound; tenderness Extremities: normal range of motion, non-tender, normal inspection, no pedal edema, no calf tenderness, normal capillary refill Back: normal inspection, no CVA tenderness Neurologic/Psychiatric: no motor/sensory deficits, alert, normal mood/affect Skin: normal color, warm/dry Focused Exam Lactate Level 11/25/22 08:20: Lactic Acid Level 1.00 Lactic Acid Level Laboratory Tests Test 11/25/22 08:20 Lactic Acid Level 1.00 MMOL/L (0.50-2.00) Progress/Results/Core Measures Results/Orders Lab Results Laboratory Tests Test 11/25/22 08:20 Range/Units White Blood Count 9.6 4.3-11.0 10^3/uL Red Blood Count 5.80 H 4.30-5.52 10^6/uL Hemoglobin 17.0 13.3-17.7 g/dL Hematocrit 50 40-54 % Mean Corpuscular Volume 87 80-99 fL Mean Corpuscular Hemoglobin 29 25-34 pg Mean Corpuscular Hemoglobin Concent 34 32-36 g/dL Red Cell Distribution Width 12.4 10.0-14.5 % Platelet Count 287 130-400 10^3/uL Mean Platelet Volume 9.6 9.0-12.2 fL Immature Granulocyte % (Auto) 0 % Neutrophils (%) (Auto) 66 42-75 % Lymphocytes (%) (Auto) 19 12-44 % Monocytes (%) (Auto) 13 H 0-12 % Eosinophils (%) (Auto) 1 0-10 % Basophils (%) (Auto) 1 0-10 % Neutrophils # (Auto) 6.4 1.8-7.8 10^3/uL Lymphocytes # (Auto) 1.8 1.0-4.0 10^3/uL Monocytes # (Auto) 1.3 H 0.0-1.0 10^3/uL Eosinophils # (Auto) 0.1 0.0-0.3 10^3/uL Basophils # (Auto) 0.1 0.0-0.1 10^3/uL Immature Granulocyte # (Auto) 0.0 0.0-0.1 10^3/uL Prothrombin Time 15.1 H 12.2-14.7 SEC INR Comment 1.2 0.8-1.4 Activated Partial Thromboplast Time 33 24-35 SEC Sodium Level 135 135-145 MMOL/L Potassium Level 3.5 L 3.6-5.0 MMOL/L Chloride Level 99 98-107 MMOL/L Carbon Dioxide Level 22 21-32 MMOL/L Anion Gap 14 5-14 MMOL/L Blood Urea Nitrogen 13 7-18 MG/DL Creatinine 1.33 H 0.60-1.30 MG/DL Estimat Glomerular Filtration Rate 66 BUN/Creatinine Ratio 10 Glucose Level 128 H 70-105 MG/DL Lactic Acid Level 1.00 0.50-2.00 MMOL/L Calcium Level 9.6 8.5-10.1 MG/DL Corrected Calcium 9.8 8.5-10.1 MG/DL Magnesium Level 1.8 1.6-2.4 MG/DL Total Bilirubin 0.9 0.1-1.0 MG/DL Aspartate Amino Transf (AST/SGOT) 17 5-34 U/L Alanine Aminotransferase (ALT/SGPT) 18 0-55 U/L Alkaline Phosphatase 79 40-136 U/L C-Reactive Protein High Sensitivity 7.02 H 0.00-0.50 MG/DL Total Protein 8.2 6.4-8.2 GM/DL Albumin 3.7 3.2-4.5 GM/DL Lipase 27 8-78 U/L My Orders Orders - JANEL GODINEZ MD Cbc With Automated Diff (11/25/22 08:28) Comprehensive Metabolic Panel (11/25/22 08:28) Hs C Reactive Protein (11/25/22 08:28) Lactic Acid Analyzer (11/25/22 08:28) Lipase (11/25/22 08:28) Magnesium (11/25/22 08:28) Protime With Inr (11/25/22:28) Partial Thromboplastin Time (11/25/22 08:28) Ct Abdomen/Pelvis W (11/25/22 08:28) Ed Iv/Invasive Line Start (11/25/22 08:28) Ns Iv 1000 Ml (Sodium Chloride 0.9%) (11/25/22 08:28) Famotidine Injection (Famotidine Injec (11/25/22 08:30) Ondansetron Injection (Zofran Injectio (11/25/22 08:30) Morphine Injection (Morphine Injection (11/25/22 08:28) Iohexol Injection (Omnipaque 350 Mg/Ml 1 (11/25/22 08:45) Received Contrast (Hold Metformin- Contr (11/25/22 08:45) Ns (Ivpb) 100 Ml (Sodium Chloride 0.9% 1 (11/25/22 08:45) Medications Given in ED Current Medications Medications Dose Ordered Sig/Mary Route Start Time Stop Time Status Last Admin Dose Admin Famotidine 20 mg ONCE ONCE IVP 11/25/22 08:30 11/25/22 08:31 DC 11/25/22 08:38 20 MG Iohexol 100 ml ONCE ONCE IV 11/25/22 08:45 11/25/22 08:46 DC 11/25/22 09:04 80 ML Ondansetron HCl 4 mg ONCE ONCE IVP 11/25/22 08:30 11/25/22 08:31 DC 11/25/22 08:37 4 MG Sodium Chloride 100 ml ONCE ONCE IV 11/25/22 08:45 11/25/22 08:46 DC 11/25/22 09:04 80 ML Vital Signs/I&O 11/25/22 08:15 Temp 37.1 Pulse 93 Resp 18 B/P (MAP) 146/104 (118) Pulse Ox 95 Blood Pressure Mean: 118 Progress Progress Note : Progress Note 47-year-old male with above history coming in due to abdominal pain. ABCs were intact and vitals were stable on presentation. Physical exam with global abdominal tenderness but no signs of peritonitis. An IV was placed and basic labs were obtained and were significant for a normal white blood cell count, slightly elevated CRP, creatinine around 1.3 which seems to be around his baseline from prior in 2018, unremarkable LFTs. CT abdomen pelvis with multiple dilated loops of bowel all the way to the sigmoid with differential including a mass. I personally discussed the case with the radiologist a few times, and given that the patient has had a normal colonoscopy in the past year, they were unclear if a repeat colonoscopy would be helpful. I discussed the case with the surgeon that had been working with the patient, Dr. Martins, and he recommends a barium enema. The patient did receive morphine and Zofran as well as IV fluids in the ER with some improvement in symptoms. I have personally reviewed the pathology report from his biopsy from his colonoscopy in July 2022. This showed focal ileitis and colitis of the sigmoid colon. It did not show architectural changes that would be consistent with inflammatory bowel disease. The differential was listed as infectious versus medication related such as NSAIDs. The patient has stopped all NSAIDs since then. He has completed almost 2 rounds of Augmentin as well since that time. The patient will be admitted under observation status to Dr. Maria for further evaluation and management of his abdominal pain with dilated loops of bowel with potential for mass as a cause. Diagnostic Imaging Diagonstic Imaging: CT (abd/pelvis) Comments [facility] [place], [place] NAME: SAQIB STOLL MED REC#: [id number] PT STATUS: REG ER : 1975 PHYSICIAN: JANEL GODINEZ MD ADMIT DATE: 11/25/22/ER Draft Date of Exam:11/25/22 CT ABDOMEN/PELVIS W PROCEDURE: CT abdomen and pelvis with contrast. TECHNIQUE: Multiple contiguous axial images were obtained through the abdomen and pelvis after administration of intravenous contrast. Auto Exposure Controls were utilized during the CT exam to meet ALARA standards for radiation dose reduction. All CT scans use one or more of the following dose optimizing techniques: automated exposure control, MA and/or KvP adjustment based on patient size and exam type or iterative reconstruction. INDICATION: Severe abdominal pain for 3 weeks. Correlation is made with prior CT from 05/15/2022. The lung bases are clear. There is some generalized low attenuation throughout the liver consistent with hepatic steatosis. Gallbladder surgically absent. There is no biliary duct dilatation. Pancreas and spleen are unremarkable. No adrenal mass is identified. There are multiple nonobstructing calculi bilateral kidneys. No ureteral calculi or hydronephrosis is identified. No definite bladder calculi are detected. Aorta is nonaneurysmal. There is marked diffuse fluid-filled distention to the level of the sigmoid colon. There is also some generalized fluid-filled distention of small bowel. No definite pneumatosis or free air is identified. There is a midline fat-containing ventral hernia cephalad to the umbilicus. No free fluid is seen. There is no fluid collection identified. The bladder and prostate are unremarkable. IMPRESSION: 1. There is diffuse fluid-filled distention of the colon and small bowel traced to the level of the sigmoid colon. Underlying malignancy at the sigmoid colon cannot be entirely excluded and correlation with colonoscopy would be recommended if not already performed. 2. Bilateral nonobstructing nephrolithiasis. No ureteral calculi or hydronephrosis is detected. 3. Hepatic steatosis. 4. Midline fat-containing ventral hernia. Dictated on workstation # [id number] Dict: 11/25/22905 Trans: 11/25/22 0921 [facility] [id number] Interpreted by: TED DALY MD Electronically signed by: Departure Impression Primary Impression: Abdominal pain Qualified Codes: R10.84 - Generalized abdominal pain Additional Impression: Dilated bowel Disposition: ADMITTED INPATIENT Condition: Stable Admissions Decision to Admit Reason: Admit from ER (General) Decision to Admit/Date: Nov 25, 2022 Time/Decision to Admit Time: 10:00 Departure-Patient Inst. Referrals: GABE MARIA MD (PCP/Family) Primary Care Physician JANEL GODINEZ MD Nov 25, 2022 08:32
[2022-11-25 08:41] LABS: BASOPHILS # (AUTO) 0.1 10^3/uL (0.0-0.1); BASOPHILS % (AUTO) 1 % (0-10); EOSINOPHILS # (AUTO) 0.1 10^3/uL (0.0-0.3); EOSINOPHILS % (AUTO) 1 % (0-10); HEMATOCRIT 50 % (40-54); LYMPHOCYTES # (AUTO) 1.8 10^3/uL (1.0-4.0); LYMPHOCYTES % (AUTO) 19 % (12-44); MEAN CORPUSCULAR HEMOGLOBIN 29 pg (25-34); MEAN CORPUSCULAR HGB CONC 34 g/dL (32-36); MEAN CORPUSCULAR VOLUME 87 fL (80-99); MEAN PLATELET VOLUME 9.6 fL (9.0-12.2); MONOCYTES # (AUTO) 1.3 10^3/uL (0.0-1.0); MONOCYTES % (AUTO) 13 % (0-12); NEUTROPHILS # (AUTO) 6.4 10^3/uL (1.8-7.8); NEUTROPHILS % (AUTO) 66 % (42-75); PLATELET COUNT 287 10^3/uL (130-400); WHITE BLOOD COUNT 9.6 10^3/uL (4.3-11.0)
[2022-11-25] MEDS ORDERED: IOHEXOL 350 MG/ML 100 ML (OMNIPAQUE 350) VIAL IV ONE (08:45)
[2022-11-25] MEDS ORDERED: NS 100 ML (IVPB) BAG IV ONE (08:45)
[2022-11-25] MEDS ORDERED: HOLD METFORMIN - RECEIVED CONTRAST 20 ML VIAL IV SCH (08:45)
[2022-11-25 08:47] LABS: ALBUMIN 3.7 GM/DL (3.2-4.5); POTASSIUM 3.5 MMOL/L (3.6-5.0)
[2022-11-25 08:48] LABS: CALCIUM 9.6 MG/DL (8.5-10.1)
[2022-11-25 08:50] LABS: INR 1.2 (0.8-1.4); PROTHROMBIN TIME PATIENT 15.1 SEC (12.2-14.7); TOTAL PROTEIN 8.2 GM/DL (6.4-8.2)
[2022-11-25 08:51] LABS: BILIRUBIN,TOTAL 0.9 MG/DL (0.1-1.0)
[2022-11-25 08:53] LABS: CREATININE SERUM 1.33 MG/DL (0.60-1.30)
[2022-11-25 08:56] LABS: MAGNESIUM 1.8 MG/DL (1.6-2.4)
--- NOTE | 2022-11-25 09:22 | Diagnostic Imaging Report ---
PROCEDURE: CT abdomen and pelvis with contrast. TECHNIQUE: Multiple contiguous axial images were obtained through the abdomen and pelvis after administration of intravenous contrast. Auto Exposure Controls were utilized during the CT exam to meet ALARA standards for radiation dose reduction. All CT scans use one or more of the following dose optimizing techniques: automated exposure control, MA and/or KvP adjustment based on patient size and exam type or iterative reconstruction. INDICATION: Severe abdominal pain for 3 weeks. Correlation is made with prior CT from 05/15/2022. The lung bases are clear. There is some generalized low attenuation throughout the liver consistent with hepatic steatosis. Gallbladder surgically absent. There is no biliary duct dilatation. Pancreas and spleen are unremarkable. No adrenal mass is identified. There are multiple nonobstructing calculi bilateral kidneys. No ureteral calculi or hydronephrosis is identified. No definite bladder calculi are detected. Aorta is nonaneurysmal. There is marked diffuse fluid-filled distention to the level of the sigmoid colon. There is also some generalized fluid-filled distention of small bowel. No definite pneumatosis or free air is identified. There is a midline fat-containing ventral hernia cephalad to the umbilicus. No free fluid is seen. There is no fluid collection identified. The bladder and prostate are unremarkable. IMPRESSION: 1. There is diffuse fluid-filled distention of the colon and small bowel traced to the level of the sigmoid colon. Underlying malignancy at the sigmoid colon cannot be entirely excluded and correlation with colonoscopy would be recommended if not already performed. 2. Bilateral nonobstructing nephrolithiasis. No ureteral calculi or hydronephrosis is detected. 3. Hepatic steatosis. 4. Midline fat-containing ventral hernia. Dictated by: Dictated on workstation # [id number]
[2022-11-25 11:42] VITALS: BP 135/91
[2022-11-25] MEDS ORDERED: ONDANSETRON INJECTION 4 MG/2 ML (SDV) IV PRN (12:15)
[2022-11-25] MEDS: NS IV 1000 ML 1,000 ML IV SCH ×3 (13:00→23:51)
[2022-11-25] MEDS ORDERED: BARIUM for suspension 96% w/w (Vanilla Silq Medium Density) PO ONE ×2 (13:45)
--- NOTE | 2022-11-25 15:04 | Diagnostic Imaging Report ---
INDICATION: Abdominal pain and bloating as well as 20-pound weight loss over the last several weeks. COMPARISON: Correlation is made with CT scan performed earlier the same day as well as prior CT scan from 05/15/2022. TECHNIQUE: Rectal tip was placed. Single contrast barium enema was performed. 76 seconds of fluoroscopic time was utilized. Reference air kerma is 56.5 mGy. 14 images were obtained. FINDINGS: Exerciser radiograph does show gaseous distention of small and large bowel loops throughout the abdomen. No rectal mass is identified. There is a persistent area of luminal narrowing involving the sigmoid colon, corresponding with the narrowing noted on CT scan. Contrast did pass beyond this area of narrowing into the descending colon which is markedly dilated. Remainder of the colon could not be evaluated due to significant fluid-filled distention. IMPRESSION: There is a persistent area of significant luminal narrowing of the sigmoid colon, corresponding with the area of narrowing noted on CT. Findings are suggestive of either a stricture or mass. No other significant abnormality is seen. Dictated by: Dictated on workstation # [id number]
--- NOTE | 2022-11-25 15:07 | Consultation - Surgery ---
VANESSA BOOTH 11/25/22 1507: History of Present Illness History of Present Illness Patient Consulted On(theron/time) 11/25/22 15:00 Date Seen by Provider: Nov 25, 2022 Time Seen by Provider: 15:00 History of Present Illness Humberto complains of abdominal discomfort that started 6 weeks ago and worsened on vacation in [place] 3 weeks ago. HIs pain is diffuse and is constant. Discomfort slightly improved on return from vacation, but the pt has not been able to go into the office because of the discomfort. He says that it feels like an inflated balloon that hurts when he sneezes. His doctor put him on cholestiramine 4 weeks ago, which did not make it better. Thinking about food and straining for a bowel movment makes him nauseas. Refraining from eating makes him feel slightly better. Pt describes great fatigue that makes him wobbly when he walks - he has only been able to walk down his backyard and back. He has only eaten 2 protein shakes in the last 5 days. He is having liquid bowel movements for the last 3 weeks put has been unable to eliminate gas. Denies blood in stool. Denies history of this in the past and states this is the worst . Colonoscopy in July 2022 showed diverticulosis with colitis. barium enema IMPRESSION: There is a persistent area of significant luminal narrowing of the sigmoid colon, corresponding with the area of narrowing noted on CT. Findings are suggestive of either a stricture or mass. No other significant abnormality is seen. CT abd & pelvis IMPRESSION: 1. There is diffuse fluid-filled distention of the colon and small bowel traced to the level of the sigmoid colon. Underlying malignancy at the sigmoid colon cannot be entirely excluded and correlation with colonoscopy would be recommended if not already performed. 2. Bilateral nonobstructing nephrolithiasis. No ureteral calculi or hydronephrosis is detected. 3. Hepatic steatosis. 4. Midline fat-containing ventral hernia. Allergies and Home Medications Allergies Coded Allergies: No Known Drug Allergies (Unverified , 11/25/22) Patient Home Medication List Home Medication List Reviewed: No Testosterone Cypionate (Testosterone Cypionate) 100 Mg/Ml Vial, 100 MG IM UD, (Reported) Entered as Reported by: HUGO VELA on 06/05/22 3916 Past Rgkhrjl-Tdnphh-Acmggv Hx Patient Social History Smoking Status: Never a Smoker 2nd Hand Smoke Exposure: No Recent Hopitalizations: No Alcohol Use?: No Immunizations Up To Date Date of Influenza Vaccine: Jan 10, 2022 Seasonal Allergies Seasonal Allergies: Yes (MILD) Surgeries History of Surgeries: Yes (knee scopes, WRIST FUSION, oral sx) Surgeries: Gallbladder (cholecystectomy), Joint Replacement (knee scopes) Respiratory History of Respiratory Disorde: No Cardiovascular History of Cardiac Disorders: No Neurological History of Neurological Disord: No Reproductive System Hx Reproductive Disorders: No Sexually Transmitted Disease: No HIV/AIDS: No Genitourinary History of Genitourinary Disor: No Gastrointestinal History of Gastrointestinal Di: Yes Gastrointestinal Disorders: Gall Bladder Disease (cholecystecomy, and inci sional hernia) Musculoskeletal History of Musculoskeletal Dis: Yes (GOUT) Musculoskeletal Disorders: Gout Endocrine History of Endocrine Disorders: No HEENT History of HEENT Disorders: No Loss of Vision: Bilateral Hearing Impairment: Denies Cancer History of Cancer: No Psychosocial History of Psychiatric Problem: No Integumentary History of Skin or Integumenta: No Blood Transfusions History of Blood Disorders: No Adverse Reaction to a Blood Tr: No (N/A) Family Medical History Significant Family History: No Pertinent Family Hx Review of Systems-General Constitutional: weakness, weight loss (pt has lost 25lbs since the beginning of november.) EENTM: No hearing loss, No ear pain, No blurred vision Respiratory: No cough, No stridor Cardiovascular: no symptoms reported; No chest pain, No palpitations Gastrointestinal: abdominal pain (diffuse ), diarrhea, other (pt is unable to pass gas) Genitourinary: No dysuria, No hematuria Musculoskeletal: no symptoms reported; No joint swelling, No muscle pain Skin: No change in color, No dryness Psychiatric/Neurological: No Symptoms Reported; Denies Anxiety, Denies Depressed Physical Exam-General Problems Physical Exam Vital Signs Vital Signs - First Documented 11/25/22 11/25/22 08:15 11:36 Temp 37.1 Pulse 93 Resp 18 B/P (MAP) 146/104 (118) Pulse Ox 95 O2 Delivery Room Air Capillary Refill : Less Than 3 Seconds Data Review Labs Laboratory Tests 11/25/22 08:20: White Blood Count 9.6, Red Blood Count 5.80H, Hemoglobin 17.0, Hematocrit 50, Mean Corpuscular Volume 87, Mean Corpuscular Hemoglobin 29, Mean Corpuscular Hemoglobin Concent 34, Red Cell Distribution Width 12.4, Platelet Count 287, Mean Platelet Volume 9.6, Immature Granulocyte % (Auto) 0, Neutrophils (%) (Auto) 66, Lymphocytes (%) (Auto) 19, Monocytes (%) (Auto) 13H, Eosinophils (%) (Auto) 1, Basophils (%) (Auto) 1, Neutrophils # (Auto) 6.4, Lymphocytes # (Auto) 1.8, Monocytes # (Auto) 1.3H, Eosinophils # (Auto) 0.1, Basophils # (Auto) 0.1, Immature Granulocyte # (Auto) 0.0, Prothrombin Time 15.1H, INR Comment 1.2, Activated Partial Thromboplast Time 33, Sodium Level 135, Potassium Level 3.5L, Chloride Level 99, Carbon Dioxide Level 22, Anion Gap 14, Blood Urea Nitrogen 13, Creatinine 1.33H, Estimat Glomerular Filtration Rate 66, BUN/Creatinine Ratio 10, Glucose Level 128H, Lactic Acid Level 1.00, Calcium Level 9.6, Corrected Calcium 9.8, Magnesium Level 1.8, Total Bilirubin 0.9, Aspartate Amino Transf (AST/SGOT) 17, Alanine Aminotransferase (ALT/SGPT) 18, Alkaline Phosphatase 79, C-Reactive Protein High Sensitivity 7.02H, Total Protein 8.2, Albumin 3.7, Lipase 27 Assessment/Plan Assessment/Plan Assessment/Plan Luminal narrowing of simgoid colon with possible stricture or mass hx of gout diverticulitis hx of colitis NPO IV fluids NG tube ambulate patient SCDs for DVT prophylaxis ANGI DE LA CRUZ DO 11/25/22 0607: History of Present Illness History of Present Illness History of Present Illness 47 year old male with worsening abdominal discomfort and bloating for about the last 6 weeks. Last 3 weeks have been the worse. Diffuse constant pain with bloating. Not able to eat or drink much. No intake makes better. Had previous colonoscopy with some colitis. Having liquids and some soft stools. No blood in stools. Patient with ct abdomen and barium enema as noted below which i reviewed with Dr. Booker. CT abd/pelvis: 1. There is diffuse fluid-filled distention of the colon and small bowel traced to the level of the sigmoid colon. Underlying malignancy at the sigmoid colon cannot be entirely excluded and correlation with colonoscopy would be recommended if not already performed. 2. Bilateral nonobstructing nephrolithiasis. No ureteral calculi or hydronephrosis is detected. 3. Hepatic steatosis. 4. Midline fat-containing ventral hernia. Barium enema:There is a persistent area of significant luminal narrowing of the sigmoid colon, corresponding with the area of narrowing noted on CT. Findings are suggestive of either a stricture or mass. No other significant abnormality is seen. Allergies and Home Medications Allergies Coded Allergies: No Known Drug Allergies (Unverified , 11/25/22) Patient Home Medication List Home Medication List Reviewed: Yes Testosterone Cypionate (Testosterone Cypionate) 100 Mg/Ml Vial, 100 MG IM UD, (Reported) Entered as Reported by: HUGO Culp [facility] on 06/05/22 7856 Past Rplyikd-Uuhvur-Spywrd Hx Patient Social History Smoking Status: Never a Smoker Surgeries Surgeries: Gallbladder (cholecystectomy), Orthopedic Respiratory History of Respiratory Disorde: No Cardiovascular History of Cardiac Disorders: No Neurological History of Neurological Disord: No Genitourinary History of Genitourinary Disor: No Gastrointestinal History of Gastrointestinal Di: Yes Gastrointestinal Disorders: Gall Bladder Disease (cholecystecomy, and incisional hernia) Musculoskeletal History of Musculoskeletal Dis: No Endocrine History of Endocrine Disorders: No HEENT History of HEENT Disorders: No Psychosocial History of Psychiatric Problem: No Integumentary History of Skin or Integumenta: No Reviewed Nursing Assessment Reviewed/Agree w Nursing PMH: Yes Family Medical History Significant Family History: No Pertinent Family Hx Review of Systems-General Constitutional: weakness, weight loss (pt has lost 25lbs since the beginning of november.) EENTM: No hearing loss, No blurred vision Respiratory: No cough, No dyspnea on exertion Cardiovascular: No chest pain, No palpitations Gastrointestinal: abdominal pain (diffuse ), diarrhea, other (pt is unable to pass gas) Genitourinary: No decreased output, No discharge, No dysuria, No hematuria Musculoskeletal: No back pain, No joint pain, No joint swelling, No muscle pain Skin: No change in color, No dryness Psychiatric/Neurological: Denies Anxiety, Denies Depressed All Other Systems Reviewed Negative Unless Noted: Yes (Negative excepted noted.) Physical Exam-General Problems Physical Exam General Appearance: WD/WN, no apparent distress HEENT: PERRL/EOMI, normal ENT inspection Neck: non-tender, supple Respiratory: chest non-tender, no respiratory distress, no accessory muscle use Cardiovascular: regular rate, rhythm, no JVD Gastrointestinal: distended, tenderness (diffuse mild), hernia (incisional) Rectal: deferred Back: normal inspection, no CVA tenderness Extremities: non-tender, normal inspection Neurologic/Psychiatric: alert, normal mood/affect, oriented x 3 Skin: normal color, warm/dry Lymphatic: no adenopathy Assessment/Plan Assessment/Plan Assessment/Plan colonic partial obstruction Abdominal pain difffuse secondary to partial obstruction incisional hernia history of colitis Clear liquids Pain control will see if any improvement with clear liquids at this time discussed possible need for exploration and doing colon resection to remove the area of obstruction and may need colostomy. discussed could be stricture or mass. this would be determined on what we were finding at time of surgery patient understands and agrees with conservative measures at this time and understands likely will need surgical intervention. Supervisory-Addendum Brief Verification & Attestation Participated in pt care: history, MDM, physical Personally performed: exam, history, MDM, supervision of care Care discussed with: Medical Student Procedures: n/a Results interpretation: Verified all documentation Verification and Attestation of Medical Student E/M Service A medical student performed and documented this service in my presence. I reviewed and verified all information documented by the medical student and made modifications to such information, when appropriate. I personally performed the physical exam and medical decision making. Angi De La Cruz, Nov 25, 2022,23:36 VANESSA BOOTH Nov 25, 2022 15:07 ANGI DE LA CRUZ DO Nov 25, 2022 23:27
[2022-11-25 15:20] VITALS: BP 133/82
--- NOTE | 2022-11-25 15:35 | History & Physicial ---
History of Present Illness History of Present Illness Reason for visit/HPI 47-year-old male presents to be a [facility] in the morning of November 25, 2022 with abdominal bloating. He has also had abdominal discomfort, nausea as well as loose stools. He has had this going on for the past several months. He did have colonoscopy in July 2022 revealing colitis and diverticulosis. He has not been able to eat very well but has been trying to take fluids. He had also been diagnosed with colitis in the recent past and given a round of antibiotics without any significant improvement. He is also currently waiting to have umbilical hernia repair and he does have a history of cholecystitis Date of Admission Nov 25, 2022 at 11:48 Date Seen by a Provider: Nov 25, 2022 Time Seen by a Provider: 15:15 I consulted on this patient on 11/25/22 15:30 Attending Physician Jayesh Maria MD Admitting Physician Admitting Physician: Jayesh Maria MD Attending Physician: Jayesh Maria MD Consult Allergies and Home Medications Allergies Coded Allergies: No Known Drug Allergies (Unverified , 11/25/22) Patient Home Medication List Home Medication List Reviewed: Yes Testosterone Cypionate (Testosterone Cypionate) 100 Mg/Ml Vial, 100 MG IM UD, (Reported) Entered as Reported by: HUGO VELA on 06/05/22 2184 Past Yowgzcu-Hvdhmh-Ftanho Hx Patient Social History Marrital Status: 2nd Hand Smoke Exposure: No Recent Hopitalizations: No Alcohol Use?: No Pt feels they are or have been: No Immunizations Up To Date Date of Influenza Vaccine: Jan 10, 2022 Seasonal Allergies Seasonal Allergies: Yes (MILD) Surgeries Yes (knee scopes, WRIST FUSION, oral sx) Gallbladder Respiratory No Cardiovascular No Neurological No Reproductive System Hx Reproductive Disorders: No Sexually Transmitted Disease: No HIV/AIDS: No Genitourinary No Gastrointestinal No Gall Bladder Disease Musculoskeletal Yes (GOUT) Gout Endocrine History of Endocrine Disorders: No HEENT History of HEENT Disorders: No Loss of Vision: Bilateral Hearing Impairment: Denies Cancer No Psychosocial History of Psychiatric Problem: No Integumentary History of Skin or Integumenta: No Blood Transfusions History of Blood Disorders: No Adverse Reaction to a Blood Tr: No (N/A) Family Medical History Significant Family History: No Pertinent Family Hx Review of Systems Constitutional: see HPI Physical Exam Vital Signs Vital Signs - First Documented 11/25/22 11/25/22 08:15 11:36 Temp 37.1 Pulse 93 Resp 18 B/P (MAP) 146/104 (118) Pulse Ox 95 O2 Delivery Room Air Capillary Refill : Less Than 3 Seconds Height, Weight, BMI Height: 6'0.00" Weight: 270lbs. 0.0oz. 122.044614en; 33.40 BMI Method:Stated General Appearance: No Apparent Distress HEENT: Pharynx Normal Respiratory: Lungs Clear Cardiovascular: Regular Rate, Rhythm Gastrointestinal: Distended, Other (Bowel sounds are present and he does appear to be with gas by percussion) Rectal: Deferred Back: Normal Inspection Extremity: Normal Capillary Refill Neurologic/Psychiatric: Alert, Oriented x3 Lymphatic: Axilla Node Tender (L) Comments [facility] [place], [place] NAME: SAQIB STOLL [facility] REC#: [id number] PT STATUS: REG ER : 1975 PHYSICIAN: JANEL GODINEZ MD ADMIT DATE: 11/25/22/ER Draft Date of Exam:11/25/22 CT ABDOMEN/PELVIS W PROCEDURE: CT abdomen and pelvis with contrast. TECHNIQUE: Multiple contiguous axial images were obtained through the abdomen and pelvis after administration of intravenous contrast. Auto Exposure Controls were utilized during the CT exam to meet ALARA standards for radiation dose reduction. All CT scans use one or more of the following dose optimizing techniques: automated exposure control, MA and/or KvP adjustment based on patient size and exam type or iterative reconstruction. INDICATION: Severe abdominal pain for 3 weeks. Correlation is made with prior CT from 05/15/2022. The lung bases are clear. There is some generalized low attenuation throughout the liver consistent with hepatic steatosis. Gallbladder surgically absent. There is no biliary duct dilatation. Pancreas and spleen are unremarkable. No adrenal mass is identified. There are multiple nonobstructing calculi bilateral kidneys. No ureteral calculi or hydronephrosis is identified. No definite bladder calculi are detected. Aorta is nonaneurysmal. There is marked diffuse fluid-filled distention to the level of the sigmoid colon. There is also some generalized fluid-filled distention of small bowel. No definite pneumatosis or free air is identified. There is a midline fat-containing ventral hernia cephalad to the umbilicus. No free fluid is seen. There is no fluid collection identified. The bladder and prostate are unremarkable. IMPRESSION: 1. There is diffuse fluid-filled distention of the colon and small bowel traced to the level of the sigmoid colon. Underlying malignancy at the sigmoid colon cannot be entirely excluded and correlation with colonoscopy would be recommended if not already performed. 2. Bilateral nonobstructing nephrolithiasis. No ureteral calculi or hydronephrosis is detected. 3. Hepatic steatosis. 4. Midline fat-containing ventral hernia. Dictated on workstation # [id number] Dict: 11/25/22 0906 Trans: 11/25/22 0921 MAMADOU [id number] Interpreted by: TED DALY MD Electronically signed by: [facility] [place], [place] NAME: SAQIB STOLL [facility] REC#: [id number] PT STATUS: ADM Naty : 1975 PHYSICIAN: JAYESH MARIA MD ADMIT DATE: 11/25/22 Draft Date of Exam:11/25/22 ENEMA-COLON INDICATION: Abdominal pain and bloating as well as 20-pound weight loss over the last several weeks. COMPARISON: Correlation is made with CT scan performed earlier the same day as well as prior CT scan from 05/15/2022. TECHNIQUE: Rectal tip was placed. Single contrast barium enema was performed. 76 seconds of fluoroscopic time was utilized. Reference air kerma is 56.5 mGy. 14 images were obtained. FINDINGS: [employer] radiograph does show gaseous distention of small and large bowel loops throughout the abdomen. No rectal mass is identified. There is a persistent area of luminal narrowing involving the sigmoid colon, corresponding with the narrowing noted on CT scan. Contrast did pass beyond this area of narrowing into the descending colon which is markedly dilated. Remainder of the colon could not be evaluated due to significant fluid-filled distention. IMPRESSION: There is a persistent area of significant luminal narrowing of the sigmoid colon, corresponding with the area of narrowing noted on CT. Findings are suggestive of either a stricture or mass. No other significant abnormality is seen. Dictated on workstation # [id number] Dict: 11/25/22 1439 Trans: 11/25/22 1503 [id number] Interpreted by: TED DALY MD Electronically signed by: Assessment/Plan Assessment and Plan 1. Abdominal distentionongoing and now has worsened over the past month. He is noted to have diffuse fluid-filled distention of the colon and small bowel to the level of the sigmoid colon. Based upon barium enema there may be a mass or stricture in the sigmoid region -awaiting official surgical consultation -Patient currently nothing by mouth and does have IV fluids running at 200 cc/h -Pain control with morphine 2. Ventral hernia -To be repaired at a later date 3. Bilateral nonobstructive nephrolithiasis 4. Status post cholecystectomy Admission Diagnosis 1. Abdominal distentionongoing and now has worsened over the past month. He is noted to have diffuse fluid-filled distention of the colon and small bowel to the level of the sigmoid colon. Based upon barium enema there may be a mass or stricture in the sigmoid region 2. Ventral hernia 3. Bilateral nonobstructive nephrolithiasis 4. Status post cholecystectomy Admission Status: Observation Reason for Inpatient Admission: Surgical consultation. He has undergone barium enema. Possibly may need further endoscopy JAYESH MARIA MD Nov 25, 2022 15:35
[2022-11-25 19:13] VITALS: BP 139/88
[2022-11-25 23:12] VITALS: BP 139/75
[2022-11-26 04:00] VITALS: BP 132/80
--- NOTE | 2022-11-26 07:20 | Progress Note - Surgery ---
VANESSA BOOTH 11/26/22 0720: Subjective Date Seen by a Provider: Nov 26, 2022 Time Seen by a Provider: 07:00 Subjective/Events-last exam Humberto states that he feels about the same as yesterday, His stomach is still distended and he denies stomach pain. There is no rebound tenderness, rigidity, or guarding, but bowel sounds in all 4Q are hyperactive. He had 2 bowel movements last night and has been passing gas and burping. He has only been able to walk to the bathroom and has not been walking the halls. He feels limited by his arthritic pain in his hands, elbows, knees, and feet and thus does not want to move. He takes OTC medications currently for control. He states his fatigue is maybe slightly better. He feels comfortable with the plan discussed yesterday considering surgery today or tomorrow. barium enema IMPRESSION: There is a persistent area of significant luminal narrowing of the sigmoid colon, corresponding with the area of narrowing noted on CT. Findings are suggestive of either a stricture or mass. No other significant abnormality is seen. CT abd & pelvis IMPRESSION: 1. There is diffuse fluid-filled distention of the colon and small bowel traced to the level of the sigmoid colon. Underlying malignancy at the sigmoid colon cannot be entirely excluded and correlation with colonoscopy would be recommended if not already performed. 2. Bilateral nonobstructing nephrolithiasis. No ureteral calculi or hydronephrosis is detected. 3. Hepatic steatosis. 4. Midline fat-containing ventral hernia. Review of Systems General: No Chills, No Night Sweats; Fatigue HEENT: No Head Aches, No Visual Changes, No Eye Pain Pulmonary: No Dyspnea, No Cough Cardiovascular: No: Chest Pain, Palpitations Gastrointestinal: Diarrhea; No: Nausea, Vomiting, Abdominal Pain Genitourinary: No Dysuria, No Incontinence Musculoskeletal: other (arthritic joint pain - hands, elbows, knees, feet); No: neck pain Neurological: Weakness; No: Numbness, Change in speech, Confusion Focused Exam Lactate Level 11/25/22 08:20: Lactic Acid Level 1.00 Respiratory: Chest Non Tender, Normal Breath Sounds, No Accessory Muscle Use, No Respiratory Distress Cardiovascular: Regular Rate, Rhythm, No JVD Peripheral Pulses: 2+ Radial Pulses (R), 2+ Radial Pulses (L) Skin: normal color, warm/dry Objective Exam Vital Signs Date Time Temp Pulse Resp B/P (MAP) Pulse Ox O2 Delivery O2 Flow Rate FiO2 11/26/22 04:00 36.5 99 20 132/80 (97) 96 Room Air 11/25/22 23:12 37.0 98 20 139/75 (96) 96 Room Air 11/25/22 20:15 Room Air 11/25/22 19:13 36.5 104 20 139/88 (105) 96 Room Air 11/25/22 15:20 36.7 93 16 133/82 (99) 95 Room Air 11/25/22 11:55 98 Room Air 11/25/22 11:42 36.4 94 20 135/91 (106) 98 Room Air 11/25/22 11:36 83 18 132/85 95 Room Air 11/25/22 08:15 37.1 93 18 146/104 (118) 95 I & O 11/26/22 07:00 Intake Total 3620 ml Balance 3620 ml Capillary Refill : Less Than 3 Seconds General Appearance: No Apparent Distress HEENT: Pharynx Normal Respiratory: Lungs Clear Cardiovascular: Regular Rate, Rhythm Gastrointestinal: distended, tenderness (diffuse mild), hernia (incisional) Extremity: Normal Capillary Refill Neurologic/Psychiatric: Alert, Oriented x3 Lymphatic: Axilla Node Tender (L) Results Lab Laboratory Tests 11/25/22 08:20: White Blood Count 9.6, Red Blood Count 5.80H, Hemoglobin 17.0, Hematocrit 50, M juli Corpuscular Volume 87, Mean Corpuscular Hemoglobin 29, Mean Corpuscular Hemoglobin Concent 34, Red Cell Distribution Width 12.4, Platelet Count 287, Mean Platelet Volume 9.6, Immature Granulocyte % (Auto) 0, Neutrophils (%) (Auto) 66, Lymphocytes (%) (Auto) 19, Monocytes (%) (Auto) 13H, Eosinophils (%) (Auto) 1, Basophils (%) (Auto) 1, Neutrophils # (Auto) 6.4, Lymphocytes # (Auto) 1.8, Monocytes # (Auto) 1.3H, Eosinophils # (Auto) 0.1, Basophils # (Auto) 0.1, Immature Granulocyte # (Auto) 0.0, Prothrombin Time 15.1H, INR Comment 1.2, Activated Partial Thromboplast Time 33, Sodium Level 135, Potassium Level 3.5L, Chloride Level 99, Carbon Dioxide Level 22, Anion Gap 14, Blood Urea Nitrogen 13, Creatinine 1.33H, Estimat Glomerular Filtration Rate 66, BUN/Creatinine Ratio 10, Glucose Level 128H, Lactic Acid Level 1.00, Calcium Level 9.6, Corrected Calcium 9.8, Magnesium Level 1.8, Total Bilirubin 0.9, Aspartate Amino Transf (AST/SGOT) 17, Alanine Aminotransferase (ALT/SGPT) 18, Alkaline Phosphatase 79, C-Reactive Protein High Sensitivity 7.02H, Total Protein 8.2, Albumin 3.7, Lipase 27 Assessment/Plan Assessment/Plan Assessment/Plan sigmoid colonic strictures Abdominal distention secondary to partial obstruction incisional hernia history of colitis arthritic flare Clear liquids repeat labs Pain control surgery possible today or tomorrow for exploration and doing colon resection to remove the area of obstruction and may need colostomy. discussed could be stricture or mass. this would be determined on what we were finding at time of surgery patient understands and agrees with conservative measures at this time and understands likely will need surgical intervention. ANGI MARTINS DO 11/26/22 2016: Subjective Subjective/Events-last exam No signifcant change from yesterday. Not wanting to drink anything. Had 2 bowel movments, liquid to soft. Distention still the same. Denies n/v fever sweats chills shortness of breath or chest pain. Objective Exam General Appearance: No Apparent Distress, WD/WN HEENT: PERRL/EOMI, Normal ENT Inspection Neck: Normal Inspection, Non Tender Respiratory: Chest Non Tender, No Accessory Muscle Use, No Respiratory Distress Cardiovascular: Regular Rate, Rhythm, No JVD Gastrointestinal: distended, tenderness (diffuse mild), hernia (incisional) Extremity: Normal Capillary Refill, Non Tender Neurologic/Psychiatric: Alert, Oriented x3 Skin: Normal Color, Warm/Dry Lymphatic: No Adenopathy Assessment/Plan Assessment/Plan Assessment/Plan sigmoid colonic stricture vs mass Abdominal distention secondary to partial obstruction incisional hernia history of colitis arthritic flare Clear liquids NPO after midnight Pain control surgery tomorrow for exploration and doing colon resection to remove the area of obstruction and may need colostomy. discussed could be stricture or mass. will plan diagnostic laparoscopy possible open, possible colon resection and c olostomy all other indicated procedures. this would be determined on what we were finding at time of surgery we discusse other options which he and understand but wish to proceed with surgery. Supervisory-Addendum Brief Verification & Attestation Participated in pt care: history, MDM, physical Personally performed: exam, history, MDM, supervision of care Care discussed with: Medical Student Procedures: n/a Results interpretation: Verified all documentation Verification and Attestation of Medical Student E/M Service A medical student performed and documented this service in my presence. I reviewed and verified all information documented by the medical student and made modifications to such information, when appropriate. I personally performed the physical exam and medical decision making. Angi Martins, Nov 26, 2022,20:16 VANESSA BOOTH Nov 26, 2022 07:20 ANGI MARTINS DO Nov 26, 2022 20:16
[2022-11-26 07:24] VITALS: BP 123/79
--- NOTE | 2022-11-26 07:50 | Progress Note ---
Subjective Date Seen by a Provider: Nov 26, 2022 Time Seen by a Provider: 07:10 Subjective/Events-last exam patient was sitting at bedside. He does not appear to be in any distress. he reports feeling about the same as yesterday. His stomach is still bloated. He had passed a slight amount of gas or flatus Focused Exam Lactate Level 11/25/22 08:20: Lactic Acid Level 1.00 Objective Exam Vital Signs Date Time Temp Pulse Resp B/P (MAP) Pulse Ox O2 Delivery O2 Flow Rate FiO2 11/26/22 07:24 37.1 104 18 123/79 (94) 96 Room Air 11/26/22 04:00 36.5 99 20 132/80 (97) 96 Room Air 11/25/22 23:12 37.0 98 20 139/75 (96) 96 Room Air 11/25/22 20:15 Room Air 11/25/22 19:13 36.5 104 20 139/88 (105) 96 Room Air 11/25/22 15:20 36.7 93 16 133/82 (99) 95 Room Air 11/25/22 11:55 98 Room Air 11/25/22 11:42 36.4 94 20 135/91 (106) 98 Room Air 11/25/22 11:36 83 18 132/85 95 Room Air 11/25/22 08:15 37.1 93 18 146/104 (118) 95 I & O0 11/26/22 06:59 Intake Total 3620 ml Balance 3620 ml Capillary Refill : Less Than 3 Seconds General Appearance: No Apparent Distress HEENT: Normal ENT Inspection Neck: Supple Respiratory: Lungs Clear Cardiovascular: Regular Rate, Rhythm Gastrointestinal: distended; No guarding, No tenderness; other (Firm abdomen) Results Lab Laboratory Tests 11/25/22 08:20: White Blood Count 9.6, Red Blood Count 5.80H, Hemoglobin 17.0, Hematocrit 50, Mean Corpuscular Volume 87, Mean Corpuscular Hemoglobin 29, Mean Corpuscular Hemoglobin Concent 34, Red Cell Distribution Width 12.4, Platelet Count 287, Mean Platelet Volume 9.6, Immature Granulocyte % (Auto) 0, Neutrophils (%) (Auto) 66, Lymphocytes (%) (Auto) 19, Monocytes (%) (Auto) 13H, Eosinophils (%) (Auto) 1, Basophils (%) (Auto) 1, Neutrophils # (Auto) 6.4, Lymphocytes # (Auto) 1.8, Monocytes # (Auto) 1.3H, Eosinophils # (Auto) 0.1, Basophils # (Auto) 0.1, Immature Granulocyte # (Auto) 0.0, Prothrombin Time 15.1H, INR Comment 1.2, Activated Partial Thromboplast Time 33, Sodium Level 135, Potassium Level 3.5L, Chloride Level 99, Carbon Dioxide Level 22, Anion Gap 14, Blood Urea Nitrogen 13, Creatinine 1.33H, Estimat Glomerular Filtration Rate 66, BUN/Creatinine Ratio 10, Glucose Level 128H, Lactic Acid Level 1.00, Calcium Level 9.6, Corrected Calcium 9.8, Magnesium Level 1.8, Total Bilirubin 0.9, Aspartate Amino Transf (AST/SGOT) 17, Alanine Aminotransferase (ALT/SGPT) 18, Alkaline Phos phatase 79, C-Reactive Protein High Sensitivity 7.02H, Total Protein 8.2, Albumin 3.7, Lipase 27 Assessment/Plan Assessment/Plan Assess & Plan/Chief Complaint 1. Abdominal distentionongoing and now has worsened over the past month. He is noted to have diffuse fluid-filled distention of the colon and small bowel to the level of the sigmoid colon. Based upon barium enema there may be a mass or stricture in the sigmoid region -awaiting official surgical consultation -Patient currently nothing by mouth and does have IV fluids running at 200 cc/h -Pain control with morphine 11/26 -at this time we are waiting to have surgery. Plan is apparently for colostomy with relief of the distention that is proximal from the stricture of the sigmoid colon -Surgery is apparently planned for later today or on November 27, 2022. -Will maintain IV fluids for now for hydration 2. Ventral hernia -To be repaired at a later date 3. Bilateral nonobstructive nephrolithiasis 4. Status post cholecystectomy Clinical Quality Measures Admission Status Admission Dx 1. Abdominal distentionongoing and now has worsened over the past month. He is noted to have diffuse fluid-filled distention of the colon and small bowel to the level of the sigmoid colon. Based upon barium enema there may be a mass or stricture in the sigmoid region 2. Ventral hernia 3. Bilateral nonobstructive nephrolithiasis 4. Status post cholecystectomy GABE MARIA MD Nov 26, 2022 07:50
[2022-11-26] MEDS ORDERED: TEST200V21 IM (10:21)
[2022-11-26] MEDS: NS IV 1000 ML 1,000 ML IV SCH ×3 (10:24→23:55)
[2022-11-26 11:28] VITALS: BP 136/64
[2022-11-26] MEDS ORDERED: FAMOTIDINE INJ 20MG/2ML VIAL IVP NR (15:15)
[2022-11-26 15:16] VITALS: BP 131/93
[2022-11-26 19:40] VITALS: BP 165/90
[2022-11-26] MEDS: morphine INJ 4 MG/ML 1 ML (VIAL/SYRINGE) IV PRN (19:40)
[2022-11-26 23:19] VITALS: BP 150/95
[2022-11-27] VITALS (11 sets, daily range): BP systolic 132–160; BP diastolic 74–105
[2022-11-27 05:59] LABS: HEMATOCRIT 42 % (40-54); MEAN CORPUSCULAR HEMOGLOBIN 30 pg (25-34); MEAN CORPUSCULAR HGB CONC 34 g/dL (32-36); MEAN CORPUSCULAR VOLUME 88 fL (80-99); MEAN PLATELET VOLUME 9.6 fL (9.0-12.2); PLATELET COUNT 205 10^3/uL (130-400); WHITE BLOOD COUNT 6.9 10^3/uL (4.3-11.0)
[2022-11-27 06:13] LABS: POTASSIUM 3.6 MMOL/L (3.6-5.0)
[2022-11-27 06:14] LABS: CALCIUM 8.7 MG/DL (8.5-10.1)
[2022-11-27 06:18] LABS: CREATININE SERUM 1.1 MG/DL (0.60-1.30)
[2022-11-27 06:20] LABS: MAGNESIUM 1.6 MG/DL (1.6-2.4)
[2022-11-27] MEDS: NS IV 1000 ML 1,000 ML IV SCH ×3 (07:29→21:38)
--- NOTE | 2022-11-27 07:40 | Progress Note ---
Subjective Date Seen by a Provider: Nov 27, 2022 Time Seen by a Provider: 07:20 Subjective/Events-last exam patient was lying in bed comfortable this morning. He does report that his "gout" has been bothering him. the painful joints that he refers to today are his left elbow and right great toe. He has been taking morphine for the pain but he had questions about Toradol. Toradol was held due to being preop. He is currently nothing by mouth and apparently will have his surgery to abdomen today. Focused Exam Lactate Level 11/25/22 08:20: Lactic Acid Level 1.00 Objective Exam Vital Signs Date Time Temp Pulse Resp B/P (MAP) Pulse Ox O2 Delivery O2 Flow Rate FiO2 11/27/22 07:25 37.2 106 18 160/96 (117) 94 Room Air 11/27/22 03:43 37.2 97 15 155/86 (109) 94 Room Air 11/26/22 23:19 36.7 99 15 150/95 (113) 97 Room Air 11/26/22 20:00 Room Air 11/26/22 19:40 36.8 103 15 165/90 (115) 97 Room Air 11/26/22 15:16 37.1 101 16 131/93 (106) 95 Room Air 11/26/22 11:28 37.3 85 18 136/64 (88) 94 Room Air 11/26/22 08:30 Room Air I & O 11/27/22 07:00 Intake Total 710 ml Balance 710 ml Capillary Refill : Less Than 3 Seconds General Appearance: No Apparent Distress Neck: Supple Respiratory: Lungs Clear Cardiovascular: Regular Rate, Rhythm Extremity: Other (He does have heat to the right great toe and some swelling. The left elbow is warm but there is no local erythema.) Results Lab Laboratory Tests 11/27/22 05:42: Sodium Level 136, Potassium Level 3.6, Chloride Level 105, Carbon Dioxide Level 19L, Anion Gap 12, Blood Urea Nitrogen 7, Creatinine 1.10, Estimat Glomerular Filtration Rate 83, BUN/Creatinine Ratio 6, Glucose Level 93, Calcium Level 8.7, Magnesium Level 1.6 11/27/22 05:47: White Blood Count 6.9, Red Blood Count 4.74, Hemoglobin 14.0, Hematocrit 42, Mean Corpuscular Volume 88, Mean Corpuscular Hemoglobin 30, Mean Corpuscular Hemoglobin Concent 34, Red Cell Distribution Width 12.2, Platelet Count 205, Mean Platelet Volume 9.6 Assessment/Plan Assessment/Plan Assess & Plan/Chief Complaint 1. Abdominal distentionongoing and now has worsened over the past month. He is noted to have diffuse fluid-filled distention of the colon and small bowel to the level of the sigmoid colon. Based upon barium enema there may be a mass or stricture in the sigmoid region -awaiting official surgical consultation -Patient currently nothing by mouth and does have IV fluids running at 200 cc/h -Pain control with morphine 11/26 -at this time we are waiting to have surgery. Plan is apparently for colostomy with relief of the distention that is proximal from the stricture of the sigmoid colon -Surgery is apparently planned for later today or on November 27, 2022. -Will maintain IV fluids for now for hydration 11/27 -it appears that surgery will be this afternoon 2. Ventral hernia -To be repaired at a later date 3. Bilateral nonobstructive nephrolithiasis 4. Status post cholecystectomy 5. Arthralgia -We will check uric acid level -If uric acid elevated he may need to be started on gout treatment sometime after surgery. Clinical Quality Measures Admission Status Admission Dx 1. Abdominal distentionongoing and now has worsened over the past month. He is noted to have diffuse fluid-filled distention of the colon and small bowel to the level of the sigmoid colon. Based upon barium enema there may be a mass or stricture in the sigmoid region 2. Ventral hernia 3. Bilateral nonobstructive nephrolithiasis 4. Status post cholecystectomy GABE MARIA MD Nov 27, 2022 07:40
--- NOTE | 2022-11-27 10:51 | Progress Note - Surgery ---
VANESSA BOOTH 11/27/22 1051: Subjective Date Seen by a Provider: Nov 27, 2022 Time Seen by a Provider: 10:30 Subjective/Events-last exam Humberto states that he feels about the same, maybe slightly better. His stomach is still distended with no rebound tenderness, rigidity, or guarding. He had 1 liquid bowel movement this morning during which he was passing gas. He has only been able to walk to the bathroom, but has trouble getting off the toilet due to his arthritic/gout flare. He is too weak and uncomfortable to walk the halls. He feels limited by what his describes as "a combination of gout and arthritic pain" by his right big toe and his 2nd and 3rd digit mcp and pcp joints on his hands BL. He rates his arthritic pain yesterday as a 7/10. His uric acid level as of this morning is 9.0mg/dL. A long time ago he was on gout medication. Pt requested toradol to be started but it was held due to abdominal surgery later today. He is hoping that he will be able to take it post op. He feels comfortable with the plan for surgery this afternoon and "wants to get it over with". Pt denies CP, SOB, N/V, dysuria barium enema IMPRESSION: There is a persistent area of significant luminal narrowing of the sigmoid colon, corresponding with the area of narrowing noted on CT. Findings are suggestive of either a stricture or mass. No other significant abnormality is seen. CT abd & pelvis IMPRESSION: 1. There is diffuse fluid-filled distention of the colon and small bowel traced to the level of the sigmoid colon. Underlying malignancy at the sigmoid colon cannot be entirely excluded and correlation with colonoscopy would be recommended if not already performed. 2. Bilateral nonobstructing nephrolithiasis. No ureteral calculi or hydronephrosis is detected. 3. Hepatic steatosis. 4. Midline fat-containing ventral hernia. Review of Systems General: No Chills, No Night Sweats; Fatigue HEENT: No Head Aches, No Visual Changes, No Eye Pain Pulmonary: No Dyspnea, No Cough Cardiovascular: No: Chest Pain, Palpitations Gastrointestinal: Diarrhea; No: Nausea, Vomiting Genitourinary: No Dysuria, No Incontinence, No Hematuria Musculoskeletal: hand pain (swelling of mcps and pcps on 2nd and 3rd digits BL), foot pain (R big toe pain) Neurological: Weakness; No: Change in speech, Confusion Focused Exam Lactate Level 11/25/22 08:20: Lactic Acid Level 1.00 Respiratory: Chest Non Tender, Normal Breath Sounds, No Accessory Muscle Use, No Respiratory Distress Cardiovascular: Regular Rate, Rhythm, No JVD, Normal Peripheral Pulses Capillary Refill: Less Than 3 Seconds Peripheral Pulses: 2+ Radial Pulses (R), 2+ Radial Pulses (L) Skin: normal color, warm/dry; No diaphoresis, No damp Objective Exam Vital Signs Date Time Temp Pulse Resp B/P (MAP) Pulse Ox O2 Delivery O2 Flow Rate FiO2 11/27/22 08:00 Room Air 11/27/22 07:25 37.2 106 18 160/96 (117) 94 Room Air 11/27/22 03:43 37.2 97 15 155/86 (109) 94 Room Air 11/26/22 23:19 36.7 99 15 150/95 (113) 97 Room Air 11/26/22 20:00 Room Air 11/26/22 19:40 36.8 103 15 165/90 (115) 97 Room Air 11/26/22 15:16 37.1 101 16 131/93 (106) 95 Room Air 11/26/22 11:28 37.3 85 18 136/64 (88) 94 Room Air I & O 11/27/22 07:00 Intake Total 710 ml Balance 710 ml Capillary Refill : Less Than 3 Seconds General Appearance: No Apparent Distress, WD/WN HEENT: PERRL/EOMI, Normal ENT Inspection Neck: Supple Respiratory: Chest Non Tender, Lungs Clear, No Accessory Muscle Use, No Respiratory Distress Cardiovascular: Regular Rate, Rhythm, No JVD Peripheral Pulses: 2+ Radial Pulses (R), 2+ Radial Pulses (L) Gastrointestinal: distended (diffusely distended); No guarding, No rebound, No tenderness; hernia (incisional) Extremity: Other (He does have heat to the right great toe and some swelling. MCP and PCP joints of 2nd and 3rd digits are erythematous, tender, & swollen BL) Neurologic/Psychiatric: Alert, Oriented x3 Skin: Normal Color, Warm/Dry Lymphatic: No Adenopathy Results Lab Laboratory Tests 11/27/22 05:42: Sodium Level 136, Potassium Level 3.6, Chloride Level 105, Carbon Dioxide Level 19L, Anion Gap 12, Blood Urea Nitrogen 7, Creatinine 1.10, Estimat Glomerular Filtration Rate 83, BUN/Creatinine Ratio 6, Glucose Level 93, Uric Acid 9.0H, Calcium Level 8.7, Magnesium Level 1.6 11/27/22 05:47: White Blood Count 6.9, Red Blood Count 4.74, Hemoglobin 14.0, Hematocrit 42, Mean Corpuscular Volume 88, Mean Corpuscular Hemoglobin 30, Mean Corpuscular Hemoglobin Concent 34, Red Cell Distribution Width 12.2, Platelet Count 205, Mean Platelet Volume 9.6 Assessment/Plan Assessment/Plan Assessment/Plan sigmoid colonic stricture vs mass Abdominal distention secondary to partial obstruction incisional hernia history of colitis arthritic/gout flare Clear liquids NPO Pain control monitor uric acid levels order ESR, JANINA, CCP surgery today for exploration and doing colon resection to remove the area of obstruction and may need colostomy. discussed could be stricture or mass. will plan diagnostic laparoscopy possible open, possible colon resection and colostomy all other indicated procedures. this would be determined on what we were finding at time of surgery we discusse other options which he and understand but wish to proceed with surgery. ANGI MARTINS DO 11/27/22 1627: Subjective Subjective/Events-last exam No different than yesterday. NPO. 1 liquids stool, still distended. Ready for surgery. Denies n/v fever sweats chills shortness of breath or chest pain. Objective Exam General Appearance: No Apparent Distress, WD/WN HEENT: PERRL/EOMI, Normal ENT Inspection Neck: Normal Inspection, Non Tender Respiratory: Chest Non Tender, No Accessory Muscle Use, No Respiratory Distress Cardiovascular: Regular Rate, Rhythm, No JVD Gastrointestinal: distended (diffusely distended), hernia (incisional) Extremity: Normal Inspection, Other (right foot tenderness ) Neurologic/Psychiatric: Alert, Oriented x3 Skin: Normal Color, Warm/Dry Lymphatic: No Adenopathy Assessment/Plan Assessment/Plan Assessment/Plan sigmoid colonic stricture vs mass Abdominal distention secondary to partial obstruction incisional hernia history of colitis arthritic/gout flare NPO Pain control surgery today for exploration and doing colon resection to remove the area of obstruction and may need colostomy. discussed could be stricture or mass. will plan diagnostic laparoscopy possible open, possible colon resection and colostomy all other indicated procedures. this would be determined on what we were finding at time of surgery we discussed other options which he and understand but wish to proceed with surgery. Supervisory-Addendum Brief Verification & Attestation Participated in pt care: history, MDM, physical Personally performed: exam, history, MDM, supervision of care Care discussed with: Medical Student Procedures: n/a Results interpretation: Verified all documentation Verification and Attestation of Medical Student E/M Service A medical student performed and documented this service in my presence. I revie wed and verified all information documented by the medical student and made modifications to such information, when appropriate. I personally performed the physical exam and medical decision making. Angi Martins, Nov 27, 2022,12:59 VANESSA BOOTH Nov 27, 2022 10:51 ANGI MARTINS DO Nov 27, 2022 16:27
[2022-11-27] MEDS ORDERED: LIDOCAINE 1% w/EPI 1:100,000 20 ML VIAL ONE (11:24)
[2022-11-27] MEDS: LACTATED RINGERS 1,000 ML 1,000 ML IV PRN ×2 (12:47→14:18)
[2022-11-27] MEDS ORDERED: ROCURONIUM 50 MG/5 ML VIAL IV ONE ×2 (12:53→13:51)
[2022-11-27] MEDS ORDERED: LIDOCAINE PF 2% 5 ML VIAL ONE (12:53)
[2022-11-27] MEDS ORDERED: ONDANSETRON INJECTION 4 MG/2 ML (SDV) ONE (12:53)
[2022-11-27] MEDS ORDERED: dexAMETHasone INJ 10 MG/ML 1 ML VIAL ONE (12:53)
[2022-11-27] MEDS ORDERED: MIDAZOLAM INJ 2 MG/2 ML VIAL ONE (12:53)
[2022-11-27] MEDS ORDERED: fentaNYL INJECTION 250 MCG/5 ML VIAL ONE (12:53)
[2022-11-27] MEDS ORDERED: proPOfol INJECTION 200 MG/20 ML VIAL IV ONE (12:53)
[2022-11-27] MEDS ORDERED: metroNIDAZOLE 500MG/100ML IVPB 100 ML IV ONE (13:30)
[2022-11-27] MEDS ORDERED: ceFAZolin INJECTION 2,000 MG in NS (IVPB) 50 ML 50 ML IV ONE (13:30)
[2022-11-27] MEDS ORDERED: HYDROmorphone INJECTION 2 MG/ML VIAL ONE (13:56)
[2022-11-27] MEDS ORDERED: SEVOFLURANE (ULTANE) 15 ML INHAL SOLN ONE (14:44)
[2022-11-27] MEDS ORDERED: GLYCOPYRROLATE INJ 0.2 MG/ML 2 ML VIAL ONE (14:59)
[2022-11-27] MEDS ORDERED: NEOSTIGMINE 1 MG/1ML 10 ML VIAL ONE (14:59)
[2022-11-27] MEDS ORDERED: KETOROLAC INJ 30 MG/ML VIAL ONE (15:40)
[2022-11-27] MEDS ORDERED: HYDROmorphone INJECTION 2 MG/ML VIAL IV ONE (16:00)
[2022-11-27] MEDS ORDERED: morphine INJ 10 MG/ML 1ML (SYR OR VIAL) IVP ONE (16:00)
[2022-11-27] MEDS ORDERED: ONDANSETRON INJECTION 4 MG/2 ML (SDV) IVP PRN (16:00)
[2022-11-27] MEDS ORDERED: PROMETHAZINE INJ 25 MG/ML VIAL IVP ONE (16:00)
--- NOTE | 2022-11-27 16:00 | Anesthesia-General Post-Op ---
General Patient Condition Mental Status/LOC: Same as Preop Cardiovascular: Satisfactory Nausea/Vomiting: Absent Respiratory: Satisfactory Pain: Controlled Complications: Absent Post Op Complications Complications None Follow Up Care/Instructions Patient Instructions None needed. Anesthesia/Patient Condition Patient Condition Patient is doing well, no complaints, stable vital signs, no apparent adverse anesthesia problems. No complications reported per nursing. JENNIFER MURRAY CRNA Nov 27, 2022 16:00
--- NOTE | 2022-11-27 16:32 | Progress Note-Post Operative ---
Post-Operative Progess Note Surgeon (s)/[place] (s) Surgeon ANGI DE LA CRUZ DO [place] Wheeler: Dr. Jackson to assist in retraction dissection and closure Pre-Operative Diagnosis colonic obstruction, incisional hernia Post-Operative Diagnosis colonic obstruction from sigmoid stricture, incisional hernia Procedure & Operative Findings Date of Procedure 11/27/22 Procedure Performed/Findings exploratory laparotomy, sigmoid resection with end colostomy and primary repair of incisional hernia Anesthesia Type general Estimated Blood Loss Estimated blood loss (mL): minimal Specimens/Packing Specimens Removed sigmoid colon ANGI DE LA CRUZ DO Nov 27, 2022 16:32
[2022-11-27] MEDS: FAMOTIDINE INJ 20MG/2ML VIAL IVP SCH (20:15)
[2022-11-27] MEDS: ceFAZolin INJECTION 2,000 MG in NS (IVPB) 50 ML 50 ML IV SCH (20:15)
[2022-11-27] MEDS: metroNIDAZOLE 500MG/100ML IVPB 100 ML IV SCH (20:21)
[2022-11-28] VITALS (7 sets, daily range): BP systolic 114–145; BP diastolic 64–87
--- NOTE | 2022-11-28 03:16 | OPERATIVE REPORT ---
DATE OF SERVICE: 11/27/2022 PREOPERATIVE DIAGNOSIS: Colonic obstruction, incisional hernia. POSTOPERATIVE DIAGNOSIS: Colonic obstruction from sigmoid stricture, incisional hernia. PROCEDURE: Exploratory laparotomy, sigmoid resection with end colostomy and primary repair of incisional hernia. SURGEON: Angi Martins DO PLANETARIUM TECHNICIAN: Markus Jackson DO., assisted in retraction, dissection, and closure. ANESTHESIA: General. ESTIMATED BLOOD LOSS: Minimal. COMPLICATIONS: None. INDICATIONS: The patient is a 47-year-old male with significant abdominal distention with the findings noting stricture mass at the distal sigmoid colon. The patient was discussed risks and benefits of procedure and wished to proceed. Consent was signed in chart. DESCRIPTION OF PROCEDURE: The patient was taken to the operating suite, prepped and draped in sterile fashion. Timeout was performed. Midline incision was made with #10 blade scalpel going through skin and subcutaneous tissue. Cautery was used to dissect down through subcutaneous tissue and then the abdomen was entered after fascia was divided. A significant colonic distention, this was slowly moved slightly all the way until we looked down into the pelvis. The midline incision had to be extended. We were not able to have enough space to do laparoscopically; so, extended the incision inferiorly to further look into the pelvis. In the left pelvis, the distention went to this area where there was hard firm mass, which had caused the sigmoid colon to role causing the obstruction or from the stricture. The sigmoid colon was mobilized along the white line of Toldt and continued inferiorly. Using cautery and right angle, continued to mobilize the colon from the left portion of the pelvis rotating it and be able to better visualize. Distal to this area, the colon was nondilated. Distal to this area, the colon was then dissected around and a contour stapler was fired transecting it. LigaSure was then used to start to divide the mesentery to the rectosigmoid area and mobilizing the colon further allowing it to be brought up. Once we mobilized the colon proximal to the area where the stricture was, we decompressed the colon. We dissected around it and a linear IBIS stapler was used to transect it. We had to use a reload in order to get completely across it. No other pathology was noted. The abdomen was irrigated and suctioned. The midline incision was then had to be slightly extended superiorly. There was hernia present, which hernia contents were dissected free and reduced and mobilized the anterior fascia a little bit for closure. The 1-0 looped PDS was then used to close the hernia defect. Then continued to run it inferiorly, closing the fascial defect from the incision. Prior to closing the fascia, a Adele was used to grasp the skin on the left lower quadrant and a #15 blade scalpel was used to make an incision, the subcutaneous tissues and skin were removed for colostomy creation. The anterior fascia was then scored in a cruciate fashion. The muscle was then divided bluntly and the posterior fascia was then opened enough for the end of the colon to be brought up for creation of the colostomy. After this was performed, the fascia was then closed in the midline, as we discussed previously. The wound was then irrigated with copious amounts of irrigation and suction. Skin was then closed with yuli. The midline incision was then covered with a drape and a colostomy was then secured. A curved Contreras scissors were then used to open the colon. The colon was then brooked with 3-0 Vicryl. After this was matured, the colostomy bag and appliance was placed. The patient tolerated the procedure well, no complications, taken to recovery room in stable condition. Job ID: [id number] DocumentID: [id number] Dictated Date: 11/27/2022 19:47:57 Bridge Construction Inspector Date: 11/28/2022 03:14:00 Dictated By: ANGI MARTINS DO
[2022-11-28] MEDS: morphine INJ 4 MG/ML 1 ML (VIAL/SYRINGE) IV PRN ×4 (04:40→22:07)
[2022-11-28] MEDS: ceFAZolin INJECTION 2,000 MG in NS (IVPB) 50 ML 50 ML IV SCH (04:40)
[2022-11-28] MEDS: NS IV 1000 ML 1,000 ML IV SCH ×4 (04:40→22:07)
[2022-11-28] MEDS: metroNIDAZOLE 500MG/100ML IVPB 100 ML IV SCH (05:30)
[2022-11-28 05:33] LABS: BASOPHILS % (AUTO) 0 % (0-10); EOSINOPHILS % (AUTO) 0 % (0-10); HEMATOCRIT 40 % (40-54); HEMOGLOBIN 13.4 g/dL (13.3-17.7); LYMPHOCYTES # (AUTO) 0.5 10^3/uL (1.0-4.0); LYMPHOCYTES % (AUTO) 5 % (12-44); MEAN CORPUSCULAR HEMOGLOBIN 30 pg (25-34); MEAN CORPUSCULAR HGB CONC 34 g/dL (32-36); MEAN CORPUSCULAR VOLUME 88 fL (80-99); MEAN PLATELET VOLUME 9.7 fL (9.0-12.2); MONOCYTES % (AUTO) 9 % (0-12); NEUTROPHILS # (AUTO) 9.4 10^3/uL (1.8-7.8); NEUTROPHILS % (AUTO) 86 % (42-75); PLATELET COUNT 228 10^3/uL (130-400); WHITE BLOOD COUNT 10.9 10^3/uL (4.3-11.0)
[2022-11-28 05:43] LABS: POTASSIUM 4.4 MMOL/L (3.6-5.0)
[2022-11-28 05:44] LABS: CALCIUM 8.6 MG/DL (8.5-10.1)
[2022-11-28 05:49] LABS: CREATININE SERUM 1.21 MG/DL (0.60-1.30)
[2022-11-28 06:25] LABS: LYMPHOCYTES % (MANUAL) 6 %; MONOCYTES % (MANUAL) 6 %; NEUTROPHILS % (MANUAL) 88 %; RBC MORPH NORMAL
--- NOTE | 2022-11-28 07:23 | Progress Note - Surgery ---
VANESSA BOOTH 11/28/22 0723: Subjective Date Seen by a Provider: Nov 28, 2022 Time Seen by a Provider: 06:45 Subjective/Events-last exam Humberto is recovering from exploratory laparotmy with sigmoid colon resection and end colostomy surgery performed yesterday. He seems more aware and comfortable this morning. He reports 5/10 abdominal pain which is controlled and his stomach feels less distended. Bowel sounds are still hyperactive x4Q. Per nurse the incision site had lots of drainage last night. This morning there is less drainage and the incision site is non-erythematous. He reports that he has been passing gas. 50ml was drained from colostomy bag last night and 50 ml drained this morning. He reports discomfort before the waste reaches his colostomy bag. His NG tube drained 75ml. His hands look much less erythematous and much less swollen than they were yesterday. The patient believes this is because of the toradol. His reports that he is using incentive spirometer. Pt denies CP, SOB, N/V, dysuria Focused Exam Lactate Level 11/25/22 08:20: Lactic Acid Level 1.00 Respiratory: Chest Non Tender, Lungs Clear, Normal Breath Sounds, No Accessory Muscle Use Cardiovascular: Regular Rate, Rhythm, No JVD Peripheral Pulses: 2+ Radial Pulses (R), 2+ Radial Pulses (L) Skin: normal color, warm/dry Objective Exam Vital Signs Date Time Temp Pulse Resp B/P (MAP) Pulse Ox O2 Delivery O2 Flow Rate FiO2 11/28/22 04:44 37.0 88 20 145/77 (99) 96 Room Air 11/28/22 00:15 36.7 96 17 114/75 (88) 97 Room Air 11/27/22 21:58 Nasal Cannula 11/27/22 20:00 Room Air 11/27/22 19:41 36.4 99 18 132/79 (96) 95 Room Air 11/27/22 17:08 Nasal Cannula 2.00 11/27/22 16:30 36.5 116 18 147/95 (112) 96 Nasal Cannula 2.00 11/27/22 16:20 Nasal Cannula 2.00 11/27/22 16:15 36.8 14 140/101 (114) 96 Nasal Cannula 2.00 11/27/22 16:10 14 133/95 (108) 93 OxyMask 2.00 11/27/22 16:00 OxyMask 6.00 11/27/22 16:00 16 151/105 (120) 97 OxyMask 6.00 11/27/22 15:50 14 144/97 (113) 96 OxyMask 8.00 11/27/22 15:45 OxyMask 10.00 11/27/22 15:40 19 134/86 (102) 96 OxyMask 10.00 11/27/22 15:28 OxyMask 10.00 11/27/22 15:28 36.5 18 137/74 (95) 92 OxyMask 10.00 11/27/22 11:35 37.1 95 16 132/79 (96) 95 Room Air 11/27/22 08:00 Room Air 11/27/22 07:25 37.2 106 18 160/96 (117) 94 Room Air I & O 11/28/22 07:00 Intake Total 1550 ml Output Total 1775 ml Balance -225 ml Capillary Refill : Less Than 3 Seconds General Appearance: No Apparent Distress, WD/WN HEENT: PERRL/EOMI, Normal ENT Inspection Neck: Normal Inspection, Non Tender Respiratory: Chest Non Tender, No Accessory Muscle Use, No Respiratory Distress Cardiovascular: Regular Rate, Rhythm, No JVD Peripheral Pulses: 2+ Radial Pulses (R), 2+ Radial Pulses (L) Gastrointestinal: soft, abnormal bowel sounds (hyperactive in all 4 quadrants), distended (diffusely distended); No guarding, No rebound; tenderness (at incision site) Extremity: Normal Inspection, Other (right foot tenderness ) Neurologic/Psychiatric: Alert, Oriented x3 Skin: Normal Color, Warm/Dry Lymphatic: No Adenopathy Results Lab Laboratory Tests 11/28/22 05:13: White Blood Count 10.9, Red Blood Count 4.49, Hemoglobin 13.4, Hematocrit 40, Mean Corpuscular Volume 88, Mean Corpuscular Hemoglobin 30, Mean Corpuscular Hemoglobin Concent 34, Red Cell Distribution Width 12.3, Platelet Count 228, Mean Platelet Volume 9.7, Immature Granulocyte % (Auto) 1, Neutrophils (%) (Auto) 86H, Lymphocytes (%) (Auto) 5L, Monocytes (%) (Auto) 9, Eosinophils (%) (Auto) 0, Basophils (%) (Auto) 0, Neutrophils # (Auto) 9.4H, Lymphocytes # (Auto) 0.5L, Monocytes # (Auto) 1.0, Eosinophils # (Auto) 0.0, Basophils # (Auto) 0.0, Immature Granulocyte # (Auto) 0.1, Neutrophils % (Manual) 88, Lymphocytes % (Manual) 6, Monocytes % (Manual) 6, Blood Morphology Comment NORMAL, Sodium Level 137, Potassium Level 4.4, Chloride Level 104, Carbon Dioxide Level 20L, Anion Gap 13, Blood Urea Nitrogen 10, Creatinine 1.21, Estimat Glomerular Filtration Rate 74, BUN/Creatinine Ratio 8, Glucose Level 129H, Calcium Level 8.6 Microbiology 11/27/22 MRSA Screen - Final, Complete MRSA not isolated Assessment/Plan Assessment/Plan Assessment/Plan S/P exploratory laparotomy with sigmoid colon resection and end colostomy Abdominal distention secondary to partial obstruction history of colitis arthritic/gout flare Consider advancing diet from NPO to clear liquids IV fluids IV abx Pain control chloroseptic spray for throat NG tube clamped ambulation as tolerated IS ANGI MARTINS DO 11/28/22 1241: Subjective Subjective/Events-last exam Pain controlled. Having flatus out ostomy. Using incentive spirometry. Denies n/v fever sweats chills shortness of breath or chest pain. Objective Exam General Appearance: No Apparent Distress, WD/WN HEENT: PERRL/EOMI, Normal ENT Inspection Neck: Normal Inspection, Non Tender Respiratory: Chest Non Tender, No Accessory Muscle Use, No Respiratory Distress Cardiovascular: Regular Rate, Rhythm, No JVD Gastrointestinal: soft, distended (less), tenderness (at incision site, scant bloody on dressing at midline), other (colostomy with gas and small amount of liquid output, viable appearance) Extremity: Normal Inspection, Non Tender Neurologic/Psychiatric: Alert, Oriented x3 Skin: Normal Color, Warm/Dry Lymphatic: No Adenopathy Assessment/Plan Assessment/Plan Assessment/Plan S/P exploratory laparotomy with sigmoid colon resection and end colostomy Abdominal distention secondary to partial obstruction history of colitis arthritic/gout flare pull ng,start clears IV fluids Pain control ambulation as tolerated IS Start lovenox for dvt prophylaxis Famotidine for gi prophylaxis Supervisory-Addendum Brief Verification & Attestation Participated in pt care: history, MDM, physical Personally performed: exam, history, MDM, supervision of care Care discussed with: Medical Student Procedures: n/a Results interpretation: Verified all documentation Verification and Attestation of Medical Student E/M Service A medical student performed and documented this service in my presence. I reviewed and verified all information documented by the medical student and made modifications to such information, when appropriate. I personally performed the physical exam and medical decision making. Angi Martins, Nov 28, 2022,12:47 VANESSA BOOTH Nov 28, 2022 07:23 ANGI MARTINS DO Nov 28, 2022 12:41
[2022-11-28] MEDS: FAMOTIDINE INJ 20MG/2ML VIAL IVP SCH ×2 (09:09→20:11)
--- NOTE | 2022-11-28 09:10 | Physical Therapy Evaluation ---
PT Evaluation-General Medical Diagnosis Admission Date Nov 25, 2022 at 11:58 Medical Diagnosis: abdominal pain Onset Date: Nov 26, 2022 Therapy Diagnosis Therapy Diagnosis: difficulty walking Height/Weight Height (Feet): 6 Height (Inches): 0.00 Weight (Pounds): 270 Weight (Ounces): 0.0 Precautions Precautions/Isolations: Standard Precautions Weight Bear Status Full Weight Bearing Full Weight Bearing Referral Physician: Eliezer Reason for Referral: Evaluation/Treatment Social History Home: Single Level Current Living Status: Spouse Entry Into Home: Stairs With Railing PT Steps Into Home: 2 Prior Prior Level of Function SCALE: Activities may be completed with or without assistive devices. 3-Kymazcodoq-erruohb completes the activity by him/herself with no assistance from a helper. 5-Set-up or Clean-up Assistance-helper sets up or cleans up; patient completes activity. [place] assists only prior to or following the activity. 4-Supervision or Touching Assistance-helper provides verbal cues and/or touching/steadying and/or contact guard assistance as patient completes activity. Assistance may be provided throughout the activity or intermittently. 3-Partial/Moderate Assistance-helper does LESS THAN HALF the effort. [place] lifts, holds or supports trunk or limbs, but provides less than half the effort. 2-Substantial/Maximal Assistance-helper does MORE THAN HALF the effort. [place] lifts or holds trunk or limbs and provides more than half the effort. 3-Jznizvgln-xxdjvn does ALL the effort. Patient does none of the effort to complete the activity. Or, the assistance of 2 or more helpers is required for the patient to complete the activity. If activity was not attempted, code reason: 7-Patient Refused. 9-Not Applicable-not attempted and the patient did not perform the activity before the current illness, exacerbation or injury. 10-Not Attempted due to Environmental Limitations-(lack of equipment, weather restraints, etc.). 88-Not Attempted due to Medical Conditions or Safety Concerns. Bed Mobility: 6 Transfers (B,C,W/C): 6 Gait: 6 Stairs: 6 Indoor Mobility (Ambulation): Independent Stairs: Independent PT Evaluation-Current Subjective States that he had an exploratory surgery yesterday and that he is feeling a lot better. Pain Numeric Pain Scale: 5-Moderate Pain Location: Incisional Location Body Site: Abdomen Objective Patient Orientation: Person, Place, Time, Situation Attachments: NG Tube, IV ROM/Strength Strength Lower Extremities 5/5 Transfers Roll Left to Right (QC): 4 Sit to Lying (QC): 4 Lying to Sitting/Side of Bed(Q: 4 Sit to Stand (QC): 4 Chair/Xly-sp-Hwyun Xfer(QC): 4 Gait Does the Patient Walk?: Yes Mode of Locomotion: Walk Anticipated Mode of Locomotion: Walk Walk 10 feet (QC): 5 Walk 50 ft with 2 Turns(QC): 5 Walk 150 ft (QC): 5 Distance: 500' Gait Assistive Device: FWW Balance Sitting Static: Normal Sitting Dynamic: Normal Standing Static: Fair Standing Dynamic: Fair Assessment/Needs 47 y.o. male s/p abdominal surgery. He has functional mobility limitations secondary to pain. Rehab Potential: Good PT Mcc Goals Guest Service Supervisor Goals PT Guest Service Supervisor Goals Time Frame: Dec 05, 2022 Roll Left & Right (QC): 6 Sit to Lying (QC): 6 Lying-Sitting on Side/Bed(QC): 6 Sit to Stand (QC): 6 Chair/Vac-me-Swmsk Xfer(QC): 6 Toilet Transfer (QC): 6 Car Transfer (QC): 6 Does the Patient Walk: Yes Walk 10 feet (QC): 6 Walk 50ft with 2 Turns (QC): 6 Walk 150 ft (QC): 6 Walking 10ft on Uneven Surface: 6 1 Step (curb) (QC): 6 4 Steps (QC): 6 12 Steps (QC): 6 Picking up an Object (QC): 6 PT Plan Problem List Problem List: Activity Tolerance, Gait, Transfer, Bed Mobility Treatment/Plan Treatment Plan: Continue Plan of Care Treatment Plan: Bed Mobility, Functional Activity Lina, Gait, Safety, Therapeutic Exercise, Transfers Treatment Duration: Dec 05, 2022 Frequency: 6 times per week Estimated Hrs Per Day: .5 hour per day Time Time In: 0845 Time Out: 904 DATE: Nov 28, 2022 Total Billed Treatment Time: 20 Total Billed Treatment 1, EV low complexity x 20' SAQIB MONGE PT Nov 28, 2022 09:10
[2022-11-28] MEDS: ENOXAPARIN 40 MG/0.4 ML SYRINGE SC SCH (13:12)
[2022-11-29 03:26] VITALS: BP 114/69
[2022-11-29] MEDS: morphine INJ 4 MG/ML 1 ML (VIAL/SYRINGE) IV PRN (06:16)
[2022-11-29] MEDS: NS IV 1000 ML 1,000 ML IV SCH ×3 (06:16→20:32)
--- NOTE | 2022-11-29 07:00 | Progress Note - Surgery ---
VANESSA BOOTH 11/29/22 0700: Subjective Date Seen by a Provider: Nov 29, 2022 Time Seen by a Provider: 06:40 Subjective/Events-last exam Humberto is feeling pretty good. He had some leakage from the right side of the colostomy bag - consider paste to seal it better. He reports waste in colostomy bag looks the same as it did in the toilet. Passing lots of gas into colostomy bag this morning. His incision looks clean and dry. He has some incisional pain when he gets out of bed. Catheter removed - mild dysuria but able to urinate on own. Gout in big R toe starting to flare again. Pt ambulating and using IS. Pt denies CP, palpitations, SOB, headaches, changes in vision Review of Systems General: No Chills, No Night Sweats HEENT: No Head Aches, No Visual Changes, No Eye Pain Pulmonary: No Dyspnea, No Cough Cardiovascular: No: Chest Pain, Palpitations Gastrointestinal: Abdominal Pain (incisional pain); No: Nausea, Vomiting Genitourinary: Dysuria (mild); No Frequency Musculoskeletal: No: neck pain, shoulder pain Neurological: No: Change in speech, Confusion Objective Exam Vital Signs Date Time Temp Pulse Resp B/P (MAP) Pulse Ox O2 Delivery O2 Flow Rate FiO2 11/29/22 03:26 36.8 108 16 114/69 (84) 95 Room Air 0.00 0.00 11/28/22 23:48 36.7 104 16 119/64 (82) 95 Room Air 11/28/22 20:11 96 Room Air 11/28/22 19:54 36.5 105 16 122/72 (89) 94 Room Air 0.00 0.00 11/28/22 15:32 36.7 102 16 126/77 (93) 95 Room Air 0.00 0.00 11/28/22 12:01 Room Air 0.00 11/28/22 11:30 36.9 93 18 124/82 (96) 94 Room Air 11/28/22 08:00 96 Room Air 11/28/22 07:35 36.4 90 18 138/87 (104) 97 Room Air I & O 11/29/22 07:00 Intake Total 4370 ml Output Total 821 ml Balance 3549 ml Capillary Refill : Less Than 3 Seconds General Appearance: No Apparent Distress, WD/WN HEENT: PERRL/EOMI, Normal ENT Inspection Neck: Normal Inspection, Non Tender Respiratory: Chest Non Tender, No Accessory Muscle Use, No Respiratory Distress Cardiovascular: No JVD, Normal Peripheral Pulses, Tachycardia Peripheral Pulses: 2+ Radial Pulses (R), 2+ Radial Pulses (L) Gastrointestinal: soft, distended (less), tenderness (at incision site, scant bloody on dressing at midline), other (colostomy bag with viable output, mild leakage from L side of colostomy) Extremity: Normal Inspection, Non Tender Neurologic/Psychiatric: Alert, Oriented x3 Skin: Normal Color, Warm/Dry Lymphatic: No Adenopathy Results Lab Microbiology 11/27/22 MRSA Screen - Final, Complete MRSA not isolated Assessment/Plan Assessment/Plan Assessment/Plan S/P exploratory laparotomy with sigmoid colon resection and end colostomy Abdominal distention secondary to partial obstruction history of colitis arthritic/gout flare repeat labs toradol pending hgb levels clears, advance diet as tolerated IV fluids Pain control ambulation as tolerated IS Stomahesive colostomy paste Lovenox for dvt prophylaxis Famotidine for gi prophylaxis Zofran for nausea ANGI MARTINS DO 11/29/22 1053: Subjective Subjective/Events-last exam Gout pain. Colostomy productive of air. Tolerating clears. Pain controlled. Ambulating and using IS. Denies n/v fever sweats chills shortness of breath or chest pain. Objective Exam General Appearance: No Apparent Distress, WD/WN HEENT: PERRL/EOMI, Normal ENT Inspection Neck: Normal Inspection, Non Tender Respiratory: Chest Non Tender, No Accessory Muscle Use, No Respiratory Distress Cardiovascular: Tachycardia (slight) Gastrointestinal: soft, distended (minimal (improving)), tenderness (at incision site, scant bloody on dressing at midline, no signs of infection), other (colostomy bag with viable output, mild leakage from L side of colostomy) Extremity: Normal Inspection, Non Tender Neurologic/Psychiatric: Alert, Oriented x3 Skin: Normal Color, Warm/Dry Lymphatic: No Adenopathy Assessment/Plan Assessment/Plan Assessment/Plan S/P exploratory laparotomy with sigmoid colon resection and end colostomy, with primary hernia repair Abdominal distention secondary to partial obstruction history of colitis arthritic/gout flare repeat labs toradol pending hgb levels clears, advance diet as tolerated IV fluids Pain control ambulation as tolerated IS Lovenox for dvt prophylaxis Famotidine for gi prophylaxis Zofran for nausea Supervisory-Addendum Brief Verification & Attestation Participated in pt care: history, MDM, physical Personally performed: exam, history, MDM, supervision of care Care discussed with: Medical Student Procedures: n/a Results interpretation: Verified all documentation Verification and Attestation of Medical Student E/M Service A medical student performed and documented this service in my presence. I reviewed and verified all information documented by the medical student and made modifications to such information, when appropriate. I personally performed the physical exam and medical decision making. Angi Martins, Nov 29, 2022,11:02 VANESSA BOOTH Nov 29, 2022 07:00 ANGI MARTINS DO Nov 29, 2022 10:53
[2022-11-29 07:34] VITALS: BP 131/77
[2022-11-29] MEDS: FAMOTIDINE INJ 20MG/2ML VIAL IVP SCH ×2 (08:34→20:25)
[2022-11-29 09:49] LABS: BASOPHILS % (AUTO) 0 % (0-10); EOSINOPHILS # (AUTO) 0.1 10^3/uL (0.0-0.3); EOSINOPHILS % (AUTO) 1 % (0-10); HEMATOCRIT 40 % (40-54); HEMOGLOBIN 13.5 g/dL (13.3-17.7); LYMPHOCYTES # (AUTO) 0.9 10^3/uL (1.0-4.0); LYMPHOCYTES % (AUTO) 12 % (12-44); MEAN CORPUSCULAR HEMOGLOBIN 30 pg (25-34); MEAN CORPUSCULAR HGB CONC 33 g/dL (32-36); MEAN CORPUSCULAR VOLUME 89 fL (80-99); MEAN PLATELET VOLUME 9.6 fL (9.0-12.2); MONOCYTES # (AUTO) 0.8 10^3/uL (0.0-1.0); MONOCYTES % (AUTO) 10 % (0-12); NEUTROPHILS # (AUTO) 6.2 10^3/uL (1.8-7.8); NEUTROPHILS % (AUTO) 77 % (42-75); PLATELET COUNT 238 10^3/uL (130-400); WHITE BLOOD COUNT 8.1 10^3/uL (4.3-11.0)
[2022-11-29 09:53] LABS: ALBUMIN 2.8 GM/DL (3.2-4.5); POTASSIUM 3.7 MMOL/L (3.6-5.0)
[2022-11-29 09:54] LABS: CALCIUM 8.5 MG/DL (8.5-10.1)
[2022-11-29 09:55] LABS: TOTAL PROTEIN 6.5 GM/DL (6.4-8.2)
[2022-11-29 09:57] LABS: BILIRUBIN,TOTAL 0.6 MG/DL (0.1-1.0)
[2022-11-29 09:59] LABS: CREATININE SERUM 1.09 MG/DL (0.60-1.30)
[2022-11-29] MEDS ORDERED: KETOROLAC INJ 30 MG/ML VIAL IVP ONE (10:00)
[2022-11-29 11:39] VITALS: BP 120/77
[2022-11-29] MEDS: ENOXAPARIN 40 MG/0.4 ML SYRINGE SC SCH (14:00)
[2022-11-29 15:35] VITALS: BP 126/82
[2022-11-29 19:39] VITALS: BP 121/81
[2022-11-29] MEDS ORDERED: HYDROcodone/ACETAMINOPHEN 5 MG/325 MG TABLET PO PRN (20:15)
[2022-11-29] MEDS ORDERED: HYDROcodone/ACETAMINOPHEN 5 MG/325 MG TABLET ONE (20:20)
[2022-11-29 23:12] VITALS: BP 121/73
[2022-11-30 03:17] VITALS: BP 127/77
[2022-11-30] MEDS: NS IV 1000 ML 1,000 ML IV SCH (05:17)
--- NOTE | 2022-11-30 07:31 | Progress Note ---
Subjective Date Seen by a Provider: Nov 30, 2022 Time Seen by a Provider: 06:40 Subjective/Events-last exam patient has now undergone surgery and feels much better. He is ambulatory. He reports having regular diet yesterday. He reports gout is pretty much controlled Objective Exam Vital Signs Date Time Temp Pulse Resp B/P (MAP) Pulse Ox O2 Delivery O2 Flow Rate FiO2 11/30/22 03:17 36.6 88 20 127/77 (94) 94 Room Air 0.00 0.00 11/29/22 23:12 37.2 91 20 121/73 (89) 94 11/29/22 20:41 Room Air 11/29/22 19:39 36.8 99 19 121/81 (94) 96 Room Air 11/29/22 15:35 36.8 98 19 126/82 (97) 95 Room Air 11/29/22 11:39 36.8 89 18 120/77 (91) 96 Room Air 11/29/22 08:00 96 Room Air 11/29/22 07:34 37.4 108 20 131/77 (95) 92 Room Air I & O 11/30/22 07:00 Intake Total 3520 ml Output Total 355 ml Balance 3165 ml Capillary Refill : Less Than 3 Seconds General Appearance: No Apparent Distress Respiratory: Lungs Clear Cardiovascular: Regular Rate, Rhythm Gastrointestinal: normal bowel sounds, soft, other (Colostomy noted) Results Lab Laboratory Tests 11/29/22 09:26: White Blood Count 8.1, Red Blood Count 4.54, Hemoglobin 13.5, Hematocrit 40, Mean Corpuscular Volume 89, Mean Corpuscular Hemoglobin 30, Mean Corpuscular Hemoglobin Concent 33, Red Cell Distribution Width 12.6, Platelet Count 238, Mean Platelet Volume 9.6, Immature Granulocyte % (Auto) 0, Neutrophils (%) (Auto) 77H, Lymphocytes (%) (Auto) 12, Monocytes (%) (Auto) 10, Eosinophils (%) (Auto) 1, Basophils (%) (Auto) 0, Neutrophils # (Auto) 6.2, Lymphocytes # (Auto) 0.9L, Monocytes # (Auto) 0.8, Eosinophils # (Auto) 0.1, Basophils # (Auto) 0.0, Immature Granulocyte # (Auto) 0.0, Sodium Level 135, Potassium Level 3.7, Chloride Level 100, Carbon Dioxide Level 22, Anion Gap 13, Blood Urea Nitrogen 7, Creatinine 1.09, Estimat Glomerular Filtration Rate 84, BUN/Creatinine Ratio 6, Glucose Level 104, Calcium Level 8.5, Corrected Calcium 9.5, Total Bilirubin 0.6, Aspartate Amino Transf (AST/SGOT) 17, Alanine Aminotransferase (ALT/SGPT) 14, Alkaline Phosphatase 53, Total Protein 6.5, Albumin 2.8L Microbiology 11/27/22 MRSA Screen - Final, Complete MRSA not isolated Assessment/Plan Assessment/Plan Assess & Plan/Chief Complaint 1. Abdominal distentionongoing and now has worsened over the past month. He is noted to have diffuse fluid-filled distention of the colon and small bowel to the level of the sigmoid colon. Based upon barium enema there may be a mass or stricture in the sigmoid region -awaiting official surgical consultation -Patient currently nothing by mouth and does have IV fluids running at 200 cc/h -Pain control with morphine 11/26 -at this time we are waiting to have surgery. Plan is apparently for colostomy with relief of the distention that is proximal from the stricture of the sigmoid colon -Surgery is apparently planned for later today or on November 27, 2022. -Will maintain IV fluids for now for hydration 11/27 -it appears that surgery will be this afternoon 11/30 -patient underwent exploratory laparotomy with sigmoid colon resection and end colostomy -he is currently recovering and possibly home today or tomorrow per his report 2. Ventral hernia -To be repaired at a later date 3. Bilateral nonobstructive nephrolithiasis 4. Status post cholecystectomy 5. Arthralgia -We will check uric acid level -If uric acid elevated he may need to be started on gout treatment sometime after surgery. Clinical Quality Measures Admission Status Admission Dx 1. Abdominal distentionongoing and now has worsened over the past month. He i s noted to have diffuse fluid-filled distention of the colon and small bowel to the level of the sigmoid colon. Based upon barium enema there may be a mass or stricture in the sigmoid region 2. Ventral hernia 3. Bilateral nonobstructive nephrolithiasis 4. Status post cholecystectomy GABE MARIA MD Nov 30, 2022 07:31
--- NOTE | 2022-11-30 07:31 | Progress Note ---
VANESSA BOOTH 11/30/22 0731: Subjective Date Seen by a Provider: Nov 30, 2022 Time Seen by a Provider: 06:45 Subjective/Events-last exam VANESSA BOOTH 11/29/22 0700: Subjective Subjective Date Seen by a Provider: Nov 29, 2022 Time Seen by a Provider: 06:40 Subjective/Events-last exam Humberto is feeling fairly well. He had some minor leakage from the incision, but it is non erythematous, not painful, clean, and dry. 120ml have passed out of the colostomy bag this morning - looks julian colored. Passing lots of gas into colostomy bag this morning. Some pain in big R toe and hands due to gout. Pt ambulating the halls every 3 hours and using IS. Pt denies N/V, CP, SOB, changes in vision Review of Systems General: No Chills, No Night Sweats HEENT: No Head Aches, No Visual Changes, No Eye Pain Pulmonary: No Dyspnea, No Cough Cardiovascular: No: Chest Pain, Palpitations Gastrointestinal: Abdominal Pain (minimal); No: Nausea, Vomiting Genitourinary: No Dysuria, No Frequency Musculoskeletal: No: neck pain, shoulder pain Neurological: No: Weakness, Numbness, Incoordination, Change in speech, Confusion Objective Exam Last Set of Vital Signs Vital Signs Date Time Temp Pulse Resp B/P (MAP) Pulse Ox O2 Delivery O2 Flow Rate FiO2 11/30/22 03:17 36.6 88 20 127/77 (94) 94 Room Air 0.00 0.00 Capillary Refill : Less Than 3 Seconds I&O Intake and Output 11/30/22 00:00 Intake Total 3320 ml Output Total 245 ml Balance 3075 ml Intake Oral 1320 ml IV Total 2000 ml Stool Total 245 ml # Voids 6 General: Alert, Oriented X3, Cooperative, No Acute Distress HEENT: Atraumatic, PERRLA Neck: Supple, No JVD Lungs: Clear to Auscultation Heart: Regular Rate, No Murmurs Abdomen: Soft, No Hepatosplenomegaly, Other (colosotomy bag, mild incisional pain) Extremities: No Clubbing, No Cyanosis, Normal Pulses Skin: No Rashes, No Breakdown Neuro: Normal Gait, Normal Speech, Cranial Nerves 3-12 NL Results Lab Laboratory Tests 11/29/22 09:26: White Blood Count 8.1, Red Blood Count 4.54, Hemoglobin 13.5, Hematocrit 40, Mean Corpuscular Volume 89, Mean Corpuscular Hemoglobin 30, Mean Corpuscular Hemoglobin Concent 33, Red Cell Distribution Width 12.6, Platelet Count 238, Mean Platelet Volume 9.6, Immature Granulocyte % (Auto) 0, Neutrophils (%) (Auto) 77H, Lymphocytes (%) (Auto) 12, Monocytes (%) (Auto) 10, Eosinophils (%) (Auto) 1, Basophils (%) (Auto) 0, Neutrophils # (Auto) 6.2, Lymphocytes # (Auto) 0.9L, Monocytes # (Auto) 0.8, Eosinophils # (Auto) 0.1, Basophils # (Auto) 0.0, Immature Granulocyte # (Auto) 0.0, Sodium Level 135, Potassium Level 3.7, Chloride Level 100, Carbon Dioxide Level 22, Anion Gap 13, Blood Urea Nitrogen 7, Creatinine 1.09, Estimat Glomerular Filtration Rate 84, BUN/Creatinine Ratio 6, Glucose Level 104, Calcium Level 8.5, Corrected Calcium 9.5, Total Bilirubin 0.6, Aspartate Amino Transf (AST/SGOT) 17, Alanine Aminotransferase (ALT/SGPT) 14, Alkaline Phosphatase 53, Total Protein 6.5, Albumin 2.8L Microbiology 11/27/22 MRSA Screen - Final, Complete MRSA not isolated Assessment/Plan Assessment/Plan Assess & Plan/Chief Complaint S/P exploratory laparotomy with sigmoid colon resection and end colostomy Abdominal distention secondary to partial obstruction history of colitis arthritic/gout flare toradol for gout flares Regular diet IV fluids Pain control ambulation as tolerated IS Stomahesive colostomy paste Lovenox for dvt prophylaxis Famotidine for gi prophylaxis Gasoline Attendant on colostomy fpc likely ANGI MARTINS DO 11/30/22 1133: Subjective Subjective/Events-last exam Pain controlled. Having function of colostomy. Tolearting diet. Wanting to go home. Denies n/v fever sweats chills shortness of breath or chest pain. Objective Exam General: Alert, Oriented X3 HEENT: PERRLA, EOMI Neck: Supple, No JVD Lungs: Other (equal chest rise, no pain) Heart: Regular Rate Abdomen: Soft, Other (colosotomy bag, mild incisional pain, no signs of infectino) Extremities: Normal Pulses, Other (slight tenderness right foot) Neuro: Normal Gait, Normal Speech Psych/Mental Status: Mental Status NL Assessment/Plan Assessment/Plan Assess & Plan/Chief Complaint S/P exploratory laparotomy with sigmoid colon resection and end colostomy Abdominal distention secondary to partial obstruction history of colitis arthritic/gout flare doing well colostomy education and care pain control-oral pain control plan dc home today Supervisory-Addendum Brief Verification & Attestation Participated in pt care: history, MDM, physical Personally performed: exam, history, MDM, supervision of care Care discussed with: Medical Student Procedures: n/a Results interpretation: Verified all documentation Verification and Attestation of Medical Student E/M Service A medical student performed and documented this service in my presence. I reviewed and verified all information documented by the medical student and made modifications to such information, when appropriate. I personally performed the physical exam and medical decision making. Angi Martins, Nov 30, 2022,11:32 VANESSA BOOTH Nov 30, 2022 07:31 ANGI MARTINS DO Nov 30, 2022 11:33
[2022-11-30 08:02] VITALS: BP 147/92
[2022-11-30] MEDS: FAMOTIDINE INJ 20MG/2ML VIAL IVP SCH (09:19)
--- NOTE | 2022-11-30 09:36 | Physical Therapy Progress Note ---
Therapy Progress Note PT to dismiss patient from services at this time due to up independently. JOAQUINA EDWARD PT Nov 30, 2022 09:36
[2022-11-30] MEDS ORDERED: ACHD5005 PO (11:24)
[2022-11-30] MEDS ORDERED: DOCU-143 PO (11:26)
--- NOTE | 2022-11-30 11:27 | Discharge Inst-Simple/Standard ---
Discharge Inst-Standard Discharge Medications New, Converted or Re-Newed RX: Transmitted to Pharmacy Patient Instructions/Follow Up Plan of Care/Instructions/FU: 2 weeks Eliezer Colostomy education with wound care if needed. Activity as Tolerated: No Discharge Diet: Regular Diet Other Inst to Patient Follow up Appt: Make appointment for 2 week Elie[facility]. Colostomy/wound care nurses as needed. Instructions: No lifting greater than 10 pounds. No strenuous activity. May shower in 24 hours, no tub bath or soaking. Use incentive spirometer at home as directed. No Smoking Skin/Wound Care: Keep incisions clean and dry. Symptoms to Report: Appetite Changes, Extremity Discoloration, Numbness/Tingling, Swelling Increased, Bleeding Excessive, Eyesight Changes, Pain Increased, Urine Color Change, Constipation(Persistent), Fever over 101 degree F, Pain/Pressure in chest, Urinating Difficulty, Cough Up/Vomit Blood, Heart Beat Irreg/Pounding, Pain/Pressure in jaw, Vaginal Bleeding Increase, Cramps in feet or legs, Lightheadedness, Pain/Pressure in shoulder, Diarrhea(Persistent), Memory Changes Suddenly, Questions/Concerns, Weight gain consecutive days, Dizziness/Fainting, Nausea/Vomiting, Shortness of Breath, Weight gain over 2 pounds If questions or concerns contact your physician Or seek help at emergency department. ANGI DE LA CRUZ DO Nov 30, 2022 11:27
[2022-11-30 11:56] VITALS: BP 150/90
[2022-11-30] MEDS: ENOXAPARIN 40 MG/0.4 ML SYRINGE SC SCH (13:55)
== END 2022-11-30 14:20 | disposition home or self-care (01) | DRG 331 ==
LOC: EDUNIT# 08:11 → ER 08:13 → 4TH 11:48 → OBSVTOIN 11:58
PROVIDERS: ADMIT Family Medicine; ATTEND Family Medicine
PROC: 0DTG0ZZ Resection of Left Large Intestine, Open Approach (ICD-10-PCS; principal; 2022-11-25)
PROC: 0WQF0ZZ Repair Abdominal Wall, Open Approach (ICD-10-PCS; 2022-11-25)
DX: K56.690 Other partial intestinal obstruction (principal); M10.9 Gout, unspecified; M25.50 Pain in unspecified joint; N20.0 Calculus of kidney; K43.2 Incisional hernia without obstruction or gangrene
CPT/HCPCS: 36415; 74177; 74270; 80048; 80053; 83605; 83690; 83735; 84550; 85007; 85025; 85027; 85610; 85730; 86141; 86850; 86900; 86901; 87081

== ENCOUNTER 2022-12-03 06:07 | Outpatient (CLI) | payer BC ==
[~2022-12-03 06:07] MED LIST changes: +TEST200V21 IM
== END 2022-12-03 09:36 | disposition home or self-care (01) ==
LOC: PREOP 06:07
PROVIDERS: ATTEND Surgery
DX: Z01.818 Encounter for other preprocedural examination (principal)